=== PATIENT | male | born 1955 | race Caucasian/White ===

== ENCOUNTER → 2017-09-20 | Outpatient (CLI) | payer OTHER ==
[~2017-09-20] MED LIST: ASPIR-LOW81 MG PO; CENTRUM COMPLE1 EACH PO; FENOFIBRATE145 MG PO; FISH OIL 1,0001 EAC3 PO; HYDROXYCHLOROQ200 MG PO; NORCO 7.5-3251 EACH PO; OMEPRAZOLE40 MG PO; TIMOLOL MALEATE10 M1 OP; TYLENOL WITH C1 EACH PO; VIT C PO; VIT D PO; XALATAN2.5 ML OP; ZEBETA10 MG PO; ZETIA10 MG PO; [UNRECOGNIZED DRUG - OTHER] OP
--- NOTE | 2017-09-20 10:53 | Diagnostic Imaging Report ---
PROCEDURE:ABDOMINAL ULTRASOUND COMPARISON:None. INDICATIONS:Chronic Hepatitis C Technique:Groves scale color Doppler ultrasound. FINDINGS: Imaged segments of the inferior vena cava and abdominal aorta are of normal caliber. The mid aorta is obscured. Normal pancreatic head and proximal body. Detail is obscured by bowel gas. Right liver span is 14.3 cm. Nodular contour with increased echogenicity. Portal vein diameter 1.1 cm; normal flow direction. Cholecystectomy. Common bile duct diameter 4 mm. Right kidney: 10.4 x 5.9 x 5.1 cm. Left kidney: 11.9 x 6.1 x 5.1 cm. The left kidney contains an anechoic, noncalcified, avascular 1.5 cm parapelvic simple cyst. The kidneys are otherwise normal. Splenic length 8.5 cm. No ascites. CONCLUSION: 1. Nodular echogenic liver in keeping with cirrhosis. No conspicuous mass. 2. Cholecystectomy. Dictated by: Gareth Gordon M.D. on 09/20/2017 at 11:01 Electronically approved by: Gareth Gordon M.D. on 09/20/2017 at 11:01
== END ==
LOC: US 09:44
PROVIDERS: ATTEND Internal Medicine Gastroenterology
DX: B18.2 Chronic viral hepatitis C (principal)
CPT/HCPCS: 76700

== ENCOUNTER → 2018-08-23 | Outpatient (CLI) | payer MEDICARE, OTHER ==
--- NOTE | 2018-08-24 12:40 | Diagnostic Imaging Report ---
Exams: Thoracic and lumbar spine CTs without IV contrast History: T12 compression fracture, back pain. Fall from ladder on 08/18/2018. Comparison studies: Included spine from abdomen pelvis CT 04/04/2015. Technique:: Axial were obtained through the thoracic and lumbar regions. Coronal and sagittal images reconstructed from the axial data. Intravenous contrast: None Findings: Alignment: Normal thoracic kyphosis. Normal lumbar lordosis. No significant scoliosis. Soft tissues: No abnormalities.. Paraspinal muscles: Unremarkable Spinal cord: Can not be evaluated. Vertebrae: Superior T12 endplate wedge compression fracture is new from the 04/04/2015 CT and results in approximately 20% height loss. There is only 2 mm retropulsion of the posterior superior vertebral body without significant canal stenosis. No other fractures. No evidence of infection or neoplasm. Changes of anterior cervical discectomy and fusion (ACDF) in the partially imaged cervical spine (cannot further evaluate on this exam). Partially imaged lower cervical spine: Moderate foraminal stenosis at C6-C7 due to uncovertebral facet arthrosis. Mildly degenerated disc at C7-T1. Thoracic degenerative changes: There is a Schmorl's node along the superior T6 endplate. Incidental bridging anterior osteophytes on the left from T3 to T5 and on the right from T7 to T11. Mild multilevel disc degeneration. Patent canal and foramina. Lumbar degenerative changes: L1-L2: Patent canal and foramina. L2-L3: Mildly degenerated disc with mild loss of disc height. Small disc bulge asymmetric to the left, mildly thickened ligamentum flavum and mild facet arthrosis with mild canal stenosis and mild left frontal stenosis. Patent right foramen. L3-L4: Mildly degenerated disc. Asymmetric left disc bulge, thickened ligamentum flavum and mild facet arthrosis with mild canal stenosis and mild left foraminal stenosis. Patent right foramen. L4-5: Mildly degenerated disc. Disc bulge with bilateral foraminal disc ossify complexes, thickened ligamentum flavum and facet arthrosis with moderate canal stenosis moderate foraminal stenosis (left greater than right) . L5-S1: Mildly degenerated disc with mild loss of disc height and vacuum phenomena. A disc osteophyte complex and facet arthrosis result in moderate right and mild left foraminal stenosis. No significant canal stenosis. Incidental findings: Prior right cholecystectomy. Scattered calcified atherosclerosis (thoracic and abdominal aorta, bilateral renal artery origins, iliac arteries and coronary arteries). IMPRESSION: Thoracic and lumbar spines: 1. Superior T12 endplate compression fracture (approximate 20% height loss) with only minimal retropulsion without significant canal stenosis. 2. No other fractures or subluxations. 3. Degenerative changes as described most notable for moderate canal stenosis at L4-L5 and moderate foraminal stenosis bilaterally at L4-L5 and on the right L5-S1. 4. Changes of ACDF in the partially imaged lower cervical spine Signed by: Dr. Cr De M.D. on 08/24/2018 12:36 PM
== END ==
LOC: CT 15:50
PROVIDERS: ATTEND Family Medicine
DX: S22.080A Wedge compression fracture of T11-T12 vertebra, initial encounter for closed fracture (principal); M54.6 Pain in thoracic spine; M54.5 Low back pain
CPT/HCPCS: 72128; 72131

== ENCOUNTER 2019-05-25 17:12 | Inpatient (IN) | payer MEDICARE, OTHER ==
[~2019-05-25] VITALS: Ht 175.3 cm; Wt 78.0 kg
--- OUTSIDE RECORDS SUMMARY | 2019-05-25 17:16 | XMS REPORT | Summary of Care ---
Author Author [facility] Organization [facility] Address Unknown Phone Unavailable Encounter GILES Parekh(MAUDE) [id number] Date(s): 06/08/17 - 06/08/17 [facility] [address] [place] [address]- Discharge Disposition: Home or Self Care Attending Physician: Sarika Astorga MD Referring Physician: Sarika Astorga MD Vital Signs No data available for this section Problem List No data available for this section Allergies, Adverse Reactions, Alerts Substance Reaction Severity Status nka Active Medications Omnipaque 300 75 mL, Route: IV, Drug Form: SOLN, ONCE, Start date: 06/08/17 8:42:00 CDT, Stop date: 06/08/17 8:42:00 CDT Notes: (Same as:Omnipaque 300).WASTE: F/P - Black; E - Municipal Trash Bin Start Date: 06/08/17 Stop Date: 06/08/17 Status: Completed Results CHEM PANEL Most recent to 1 oldest [Reference Range]: eGFR 94 mL/min/1.73m2 1 *NA* (06/08/17 8:18 AM) POC Creatinine 0.8 mg/dL [0.5-1.4 mg/dL] (06/08/17 8:18 AM) 1Result Comment: The eGFR is calculated using the CKD-EPI formula. In most young, healthy individuals the eGFR will be >90 mL/min/1.73m2. The eGFR declines with age. An eGFR of 60-89 may be normal in some populations, particularly the elderly, for whom the CKD-EPI formula has not been extensively validated. Use of the eGFR is not recommended in the following populations: Individuals with unstable creatinine concentrations, including patients and those with serious co-morbid conditions. Patients with extremes in muscle mass or diet. The data above are obtained from the National Kid[employer] Disease Education Program ( NKDEP) which additionally recommends that when the eGFR is used in patients with extremes of body mass index for purposes of drug dosing, the eGFR should be mul tiplied by the estimated BMI. Immunizations No data available for this section Procedures No data available for this section Social History No data available for this section Assessment and Plan No data available for this section
--- OUTSIDE RECORDS SUMMARY | 2019-05-25 17:16 | XMS REPORT | Continuity of Care Document ---
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 01/22/2018 [facility] [place] DX: R07.89=/ M06.9=GARRY GUO, Active 06/06/2017 [facility] DX: E23.6= Active 06/06/2017 [facility] G44.53 - PRIMARY THUNDERCLAP HEADACHE [facility] Coronary stent occluded (finding) Active Problem 03/28/2019 [facility] [place] Hypertensive disorder, systemic arterial (disorder) Active Problem 03/28/2019 [facility] [place] Peripheral vascular disease (disorder) Active Problem 03/28/2019 lower extremities [facility] [place] OTHER DISORDERS OF PITUITARY GLAND Active [facility] Medications Medication Details Route Status Patient Instructions Ordering Provider Order Date Source Acetaminophen 325 MG / Hydrocodone Bitartrate 7.5 MG Oral Tablet [[place] 7.5/325] 1 tab, PO, Q6H, PRN Pain, # 60 tab, 0 Refill(s) Active 12/28/2018 [facility] CoQ10 300 mg, PO, Daily, 0 Refill(s) Active 12/28/2018 [facility] Calcium Carbonate 1500 MG / Cholecalciferol 800 UNT Chewable Tablet [Caltrate Plus D] 1 tab, CHEW, Daily, 0 Refill(s) Active 12/28/2018 [facility] Fenofibrate 48 MG Oral Tablet =1 cap, PO, Daily, # 30 cap, 0 Refill(s) Active 12/28/2018 [facility] Furosemide 20 MG Oral Tablet 20 mg=1 tab, PO, BID, 0 Refill(s) Active 12/28/2018 [facility] Vitamin C 500 mg oral tablet 500 mg=1 tab, PO, Daily, # 30 tab, 0 Refill(s) Active 12/28/2018 [facility] Vitamin D3 2000 intl units oral capsule 2,000 IntlUnit=1 cap, PO, Daily, # 100 cap, 3 Refill(s) Active 12/28/2018 [facility] dorzolamide / Timolol 1gtt, RIGHT EYE, BID, 0 Refill(s) Active 12/28/2018 [facility] Centrum Cardio oral tablet 1 tab, PO, Daily, # 30 tab, 0 Refill(s) Active 12/28/2018 [facility] latanoprost 0.005% preservative-free ophthalmic solution 1 gtt, BOTH EYES, Daily, 0 Refill(s) Active 12/28/2018 [facility] prasugrel 10 MG Oral Tablet [Effient] 10 mg=1 tab, PO, Daily, # 30 tab, 0 Refill(s) Active 12/28/2018 [facility] pravastatin 20 mg oral tablet 20 mg=1 tab, PO, Bedtime, # 30 tab, 0 Refill(s) Active 12/28/2018 [facility] diltiazem 120 mg/24 hours oral capsule, extended release 120 mg=1 cap, PO, # 30 cap, 0 Refill(s) Active 12/28/2018 [facility] Aspirin 81 MG Enteric Coated Tablet 81 mg=1 tab, PO, Daily, # 90 tab, 3 Refill(s) Active 12/28/2018 [facility] ezetimibe 10 MG Oral Tablet [Zetia] 10 mg=1 tab, PO, Daily, # 30 tab, 0 Refill(s) Active 12/28/2018 [facility] Hydroxychloroquine Sulfate 200 MG Oral Tablet 400 mg=2 tab, PO, Daily, # 60 tab, 0 Refill(s) Active 12/28/2018 [facility] gadobenate dimeglumine 7,935 mg, 15 mL, Route: IV, Drug form: INJ, ONCE, Start date: 06/20/17 11:06:00 CDT, Stop date: 06/20/17 11:06:00 CDTNotes: Same as Multihance Inactive 06/20/2017 [facility] Omnipaque 350 100 mL, Route: IV, Drug Form: SOLN, ONCE, Start date: 06/20/17 11:05:00 CDT, Stop date: 06/20/17 11:05:00 CDTNotes: (same as:Omnipaque 350). WASTE: F/P - Black; E - Municipal Trash Bin Inactive 06/20/2017 [facility] Omnipaque 300 75 mL, Route: IV, Drug Form: SOLN, ONCE, Start date: 06/08/17 8:42:00 CDT, Stop date: 06/08/17 8:42:00 CDTNotes: (Same as:Omnipaque 300). WASTE: F/P - Black; E - Municipal Trash Bin Inactive 06/08/2017 [facility] Allergies, Adverse Reactions, Alerts Substance Category Reaction Severity Reaction type Status Date Reported Comments Source nka Assertion Drug allergy Active [facility] [place] Immunizations No Data Provided for This Section Results Order Name Results Value Reference Range Date Interpretation Comments Source CHEM PANEL eGFR 99 12/28/2018 Result Comment: The eGFR is calculated using the [...] from the National Kidney Disease Education Program (NKDEP) which additionally recommends that when the eGFR is used in patients with extremes of body mass index for purposes of drug dosing, the eGFR should be multiplied by the estimated BMI. [facility] CHEM PANEL POC Creatinine 0.7 0.5 - 1.4 12/28/2018 [facility] ELECTROLYTES Sodium Lvl 139 135 - 145 12/28/2018 [facility] ELECTROLYTES AGAP 12.2 10.0 - 20.0 12/28/2018 [facility] ELECTROLYTES Chloride Lvl 106 95 - 109 12/28/2018 [facility] ELECTROLYTES CO2 26 24 - 32 12/28/2018 [facility] ELECTROLYTES Potassium Lvl 5.2 3.5 - 5.1 12/28/2018 [facility] CHEM PANEL Creatinine Lvl 0.92 0.50 - 1.40 12/28/2018 [facility] CHEM PANEL eGFR 87 12/28/2018 Result Comment: The eGFR is calculated using the [...] from the National Kidney Disease Education Program (NKDEP) which additionally recommends that when the eGFR is used in patients with extremes of body mass index for purposes of drug dosing, the eGFR should be multiplied by the estimated BMI. [facility] CHEM PANEL eGFR 100 06/20/2017 Result Comment: The eGFR is calculated using the [...] from the National Kidney Disease Education Program (NKDEP) which additionally recommends that when the eGFR is used in patients with extremes of body mass index for purposes of drug dosing, the eGFR should be multiplied by the estimated BMI. [facility] CHEM PANEL POC Creatinine 0.7 0.5 - 1.4 06/20/2017 [facility] CHEM PANEL eGFR 94 06/08/2017 Result Comment: The eGFR is calculated using the [...] from the National Kidney Disease Education Program (NKDEP) which additionally recommends that when the eGFR is used in patients with extremes of body mass index for purposes of drug dosing, the eGFR should be multiplied by the estimated BMI. [facility] CHEM PANEL POC Creatinine 0.8 0.5 - 1.4 06/08/2017 [facility] Pathology Reports No Data Provided for This Section Diagnostic Reports Report Value Date Source Chest wo contrast CT EXAM: CT CHEST WITHOUT CONTRAST DATE: 03/26/2019 9:52 CDT INDICATION: - R06.02 Shortness of breath COMPARISON: CT chest 02/07/2018 and 09/13/2017. TECHNIQUE: Volumetric CT of the chest is acquired without contrast. Axial, coronal and sagittal images are provided. IV contrast: None. DLP: 316.71 mGy-cm FINDINGS: Lines, tubes and hardware: None. Lower neck: The visible portions or the lower neck and thyroid are unremarkable. Axilla: No axillary adenopathy. Airway: Patent. Lungs and pleura: No pleural effusions or pneumothorax. Mild centrilobular emphysema with upper lobe predilection. Small bilateral pulmonary nodules measuring up to 6 mm are stable since 09/13/2017, as seen in the right lung on images 89 and 119, in the left lung on images 42 and 96 of series 2. There are no new or enlarging pulmonary nodules. Calcified granuloma in the right lower lobe. Stable mild symmetric subpleural reticulation with upper lobe predominance. Mediastinum, dodie and intrathoracic lymph nodes: No enlarged mediastinal or hilar lymph nodes noted. Evaluation of hilar spaces is limited due to lack of intravenous contrast. Heart, pericardium and great vessels: The heart is normal in size. Moderate atherosclerotic changes in the aorta and coronary arteries. No pericardial effusion. Upper abdomen: Large sliding hiatal hernia. Normal adrenal glands. Postsurgical changes following cholecystectomy. Mild bilateral perinephric fat stranding. Spleen is normal in size. Redemonstration of fatty atrophy of the pancreas. Bones: Postsurgical changes in the cervical spine. Bones are diffusely demineralized. Degenerative changes in the thoracic spine. New compression fracture of about 40% of T12 vertebral body. Soft tissues: Normal. IMPRESSION: 1. Small bilateral pulmonary nodules are stable since 09/13/2017. No new or enlarging pulmonary nodules. 2. Mild centrilobular emphysema with upper lobe predominance. 3. Stable mild symmetric subpleural reticulation may represent early fibrosis. Further evaluation with high-resolution CT chest may be performed. 4. Moderate atherosclerotic changes in the aorta and coronary arteries. 5. Large sliding hiatal hernia. 6. Nonspecific mild bilateral perinephric fat stranding. 7. Patchy atrophy of the pancreas. 8. New compression fracture of about 40% of T12 vertebral body. 03/26/2019 [facility] Brain Pituitary w/wo contrast MRI Clinical Indication: UNDER ANESTHESIA - E23.6 Other disorders of pituitary gland Comparison: Comparison is made to MR study 02/15/2018 TECHNIQUE: Multiplanar MRI of the brain is performed with pituitary protocol including thin section sellar pre and post Gadolinium contrast enhanced images on a 3 Daphnie magnet. Contrast: 13 cc of gadolinium was administered. FINDINGS: PITUITARY: Similar to the previous exam, at the superior aspect of the adenohypophysis, there is a bilobed T1 weighted hyperintense mass intensity of 5 mm x 3 mm x 5 mm. 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 The remainder of the adenohypophysis is normally enhanced. There is no microadenoma. There is no suprasellar abnormality otherwise identified. The optic chiasm and 1st portion the optic nerves are normal. There is normal enhancement the cavernous sinus and midline infundibulum. There appears to be a normal bright signal of the neurohypophysis. BRAIN PARENCHYMA: The visualized brain parenchyma has normal signal, with normal mujica-white junction, sulci and gyri. There is no mass effect or midline shift. There is no extra-axial fluid collection, intraparenchymal hemorrhages. The ventricles and cisterns are normal. There are no diffusion-weighted abnormalities to suggest acute/subacute ischemia. The corpus callosum is normal. The expected intracranial flow-voids are present. The venous sinuses are grossly unremarkable. The optic chiasm and sella are unremarkable. The midbrain, marcy and medulla are unremarkable. The cerebellum is unremarkable. The craniocervical junction is normal. VISUALIZED EXTRACRANIAL ANATOMY: There is no air-fluid level in the visualized paranasal sinuses. The nasopharynx region appears unremarkable. The mastoid air cell regions appear unremarkable. The visualized parotid regions appear unremarkable. IMPRESSION: Similar to the previous exam, at the superior aspect of the adenohypophysis, there is a bilobed T1 weighted hyperintense mass intensity of 5 mm x 3 mm x 5 mm. 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 The remainder of the adenohypophysis is normally enhanced. SL: ESTER 12/28/2018 [facility] Neck CTA EXAM: CT ANGIOGRAM OF THE NECK DATE: 12/17/2018 10:03 CDT INDICATION: I65.23 Occlusion and stenosis of bilateral carotid arteries; carotid stenosis, dizziness COMPARISON: CTA brain/neck dated 06/08/2017 TECHNIQUE: Rapid acquisition spiral CT images of the neck were obtained between the aortic arch and the skull base during intravenous infusion of iodinated contrast for the purposes of CT angiography. 3-D CT angiographic images are created using maximum intensity projection technique at the acquisition workstation. The source images are also presented for interpretation. IV contrast: 100 mL Visipaque 320 FINDINGS: NECK CTA: Aortic arch: The great vessels originate from the aortic arch in the standard configuration. There are atherosclerotic calcifications in the aortic arch and origins of the great vessels. As a consequence, there is suggestion of mild to moderate stenosis at the origin and immediate proximal segment of the brachiocephalic and left subclavian arteries. There is no flow-limiting stenosis at the origin of the left common carotid artery. Carotid arteries: There is no evidence of flow-limiting dissection or other vascular injury. The cervical common carotid arteries and cervical internal carotid arteries have a normal course, caliber, and contour. There are areas of calcification at the carotid bifurcations. 47% stenosis at the origin of the cervical right internal carotid artery, by NASCET criteria. There is 51% stenosis at the origin of the cervical left internal carotid artery, by NASCET criteria. Vertebral arteries: There is moderate to severe stenosis at the origin of the right vertebral artery, resulting from calcified atherosclerotic plaques. The left vertebral artery origin is patent, without flow-limiting stenosis. There are nonflow- limiting calcifications at the proximal and distal V1 segment of the left vertebral artery. Atherosclerotic calcifications in the bilateral carotid siphons are nonflow-limiting. The thyroid gland is unremarkable. Previously noted tiny indeterminate nodule in the superior segment of the left lower lobe appears to be unchanged or less conspicuous than previous (series 2 image 21 on the current study versus series 8 image 588 on the prior exam). Mild centrilobular emphysematous changes in the visible lung apices are again shown. Again shown are postsurgical changes, status post ACDF spanning C5-C7. The appearance an alignment of the cervical spine are unchanged. IMPRESSION: 1. 47% stenosis at the origin of the cervical right internal carotid artery and 51% stenosis at the origin of the cervical left internal carotid artery, by NASCET criteria. Please note that the current measurements are different from previously reported, presumably as a result of differences in measurement planes/technique. The aforementioned stenoses are attributed to calcified atherosclerotic plaques. 2. Moderate to severe stenosis at the origin of the right vertebral artery, resulting from calcified atherosclerotic plaques 3. Nonflow-limiting atherosclerotic calcifications at the V1 segment of the left vertebral artery. The left vertebral artery origin is patent. 4. Nonflow-limiting atherosclerotic calcifications at the bilateral carotid siphons 5. Atherosclerotic calcifications at the aortic arch and origins of the great vessels, producing mild to moderate stenosis at the origins and immediate proximal segments of the brachiocephalic and left common carotid arteries 6. 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 Comparison: Pituitary MR 06/20/2017. Brain MR 04/26/2017. Brain CT/CTA 06/08/2017. TECHNIQUE: Axial T1, coronal T2 FLAIR, axial T2 FLAIR, axial T2 MR sequences of the brain. Sagittal T1, coronal T2, axial T1, postcontrast dynamic coronal T1, delayed postcontrast coronal and sagittal T1 sequences through the pituitary gland. CONTRAST: 14 mL MultiHance. FINDINGS: Pituitary/sella: the bony sella is unremarkable. The adenohypophysis is normal in size, measuring approximately 7 mm in craniocaudal dimension. Again noted is an intrinsically T1 hyperintense 4 mm x 4 mm lesion at the confluence of the infundibulum and adenohypophysis, without extension into the suprasellar space. This lesion does not demonstrate enhancement. An orthotopic T1 hyperintense neurohypophysis is not well identified. The infundibulum is midline. The cavernous sinuses, optic chiasm, prechiasmatic optic nerves and hypothalamic region appear normal. VENTRICLES AND SULCI: Mildly widened, likely representing age-related volume loss. EXTRA-AXIAL SPACES:No extra-axial fluid collection or mass effect. BRAIN PARENCHYMA: No abnormal restricted diffusion or enhancement. The T2 FLAIR hyperintense foci in the supratentorial matter are nonspecific but favor microvascular ischemic changes. There is no mass effect or midline shift. There there is no magnetic susceptibility to suggest intraparenchymal hemorrhage. PARANASAL SINUSES: Mild mucosal thickening of the frontal sinuses, ethmoid air cells, maxillary sinuses and sphenoid sinuses, with small fluid level in the right maxillary sinus. IMPRESSION: No change in the appearance of the brain and pituitary gland compared to the MR performed on 06/20/2017. A 4 mm x 4 mm T1 hyperintense lesion at the confluence of the neurohypophysis and adenohypophysis may represent a lipoma, or ectopic neurohypophysis. A small cyst is also a possibility, but less favored. If follow-up pituitary MR is performed, addition of unenhanced sagittal T1 fat sat and sagittal T2 sequences through the pituitary gland would be beneficial in characterizing the presence of fat within this lesion. Sinusitis/inflammatory changes of the paranasal sinuses. SL: [id number] 02/15/2018 [facility] Chest wo contrast CT EXAM: CT CHEST WITHOUT CONTRAST DATE: 02/07/2018 12:30 PM CDT INDICATION: - J98.4 Other disorders of lung TECHNIQUE: Volumetric CT acquisition of the chest without contrast. Axial, sagittal and coronal reconstructions. Axial MIP images included. IV contrast: None. DLP: 352 mGy-cm COMPARISON: Noncontrast CT chest September 13, 2017 DISCUSSION: Lines and Tubes: None. Lower Neck: The visible portions or the lower neck and thyroid are unremarkable. Heart, Mediastinum, and Great Vessels: Normal caliber of the ascending aorta and pulmonary trunk. No cardiomegaly or pericardial effusion. Scattered calcified plaques are present in the aorta and also in the coronary arteries. Lymph Nodes: No mediastinal, axillary or internal mammary lymphadenopathy. Hilar lymph nodes are suboptimally evaluated due to the absence of IV contrast. Lungs and airways and pleura: No pleural effusion or pneumothorax. Airways are unremarkable. There is mild centrilobular emphysema in both lungs with slight upper lobe predilection. 6 mm nodule along the minor fissure (series 2 image 129) is unchanged and likely represents a lymph node. There is also a pair of 2 mm nodule along the left major fissure (series 2 image 111, 121) that may represent a lymph node as well. This nodule is also unchanged from the prior exam. There is a 2 mm right upper lobe nodule on axial image 85. There is a 2 mm right upper lobe nodule on axial image 94. There is a 2 mm left upper lobe nodule on axial image 53. These nodules are unchanged from the previous exam. Esophagus and Upper abdomen: Fatty atrophy of the pancreas is unchanged from the prior exam. Cholecystectomy clips are unchanged. Bones and Soft Tissues: Mild degenerative changes are present in the spine. Incompletely visualized ACDF hardware is present. IMPRESSION: No significant change from previous exam. Pulmonary nodules described in the body of this report are grossly stable in size. No new pulmonary nodules are seen. One year follow-up CT scan is recommended to ensure stability. Centrilobular emphysema throughout both lungs. Coronary and aortic atherosclerosis. 02/07/2018 [facility] wo contrast CT EXAM: CT CHEST WITHOUT CONTRAST DATE: 09/13/2017 12:30 PM [facility] INDICATION: - R06.02 Shortness of breath TECHNIQUE: Volumetric CT acquisition of the chest without contrast. Axial, sagittal and coronal reconstructions. Axial MIP images included. IV contrast: None. DLP: 354 mGy-cm COMPARISON: CTA chest 06/20/2017 DISCUSSION: Lines and Tubes: None. Lower Neck: The visible portions or the lower neck and thyroid are unremarkable. Heart, Mediastinum, and Great Vessels: The heart is normal in size. No pericardial effusion is seen. Calcifications of the LAD and right coronary arteries are noted. Scattered aortic root and thoracic aortic calcifications are also seen. The aorta and main pulmonary trunk are within normal limits in caliber. Lymph Nodes: No hilar, mediastinal, axillary or internal mammary lymphadenopathy. Lungs: A small calcified granuloma seen in the right lower lobe. A nodular density measuring 6 mm is seen along the right minor fissure, unchanged and likely representing a perifissural lymph node. Small 2 mm nodular densities along the left oblique fissure are also unchanged and likely represent perifissural lymph nodes. No suspicious pulmonary nodule is identified. The central airways are patent. Pleura: No pleural effusion or pneumothorax. Esophagus and Upper abdomen: Changes of cholecystectomy are seen. Bilateral adrenal nodules measuring 9 mm on the right and 8 mm on the left are unchanged and suggestive of adenomas. A small paraesophageal hernia is present. Bones and Soft Tissues: Views of ACDF are partially visualized along C7. No aggressive osseous lesion is seen. Mild degenerative changes affect the spine. IMPRESSION: 1. Nodular density along the right minor fissure measuring 6 mm, unchanged and likely representing a perifissural lymph node. No suspicious pulmonary nodules. 2. Coronary artery disease affecting the LAD and right coronary arteries. 3. Bilateral subcentimeter adrenal nodules, possibly representing adenomas. Further evaluation can be achieved with a CT or MRI abdomen using adrenal protocol. 09/13/2017 [facility] Chest CTA Patient Name: BETTE TOLEDO : 1955; Age: 62 years y/o Male MR: [id number] Study: Chest CTA 06/20/2017 10:59 AM CDT Clinical Indication: 100cc omni 350ml 100cc saline CT DLP 354 mGy-cm CAM - chest pain, pt states he's been having a lot of chest pain and headache for 10 months. COMPARISON: 06/08/2017. TECHNIQUE: Sequential trans-axial images of the thoracic and suprarenal aorta were obtained with a multi-detector helical CT after iodinated contrast administration per dissection CTA protocol. Coronal and sagittal reconstructions were obtained. IV contrast material was used for the exam. 3-D postprocessing reconstructions were obtained. FINDINGS: CTA CHEST: VASCULAR STRUCTURES: The ascending thoracic aorta appears normal. The aortic arch and descending thoracic aorta appear normal. There is no thoracic aortic dissection. The great vessels are normal. The main, right and left pulmonary arteries are normal. There are no central segmental pulmonary emboli noted. The peripheral pulmonary arteries are not well assessed on this exam. The superior vena cava is normal. LUNG PARENCHYMA AND PLEURA: 6 mm right middle lobe pulmonary nodule. Biapical parenchymal scarring. There are no pleural effusions. There is no pneumothorax. AIRWAY: The central airway is normal. MEDIASTINUM: There is no mediastinal lymphadenopathy. Small right pericardial lymph node measures 13 mm x 0.7 mm. HEART: The heart caliber is normal. There is no pericardial effusion. CTA ABDOMEN: ARTERIAL EVALUATION: The abdominal aorta is normal. The celiac artery, superior mesenteric artery and inferior mesenteric artery origins are patent. Bilateral renal arteries are patent. ABDOMINAL SOLID ORGANS: The gallbladder is surgically absent. The superior liver, superior kidneys, spleen, superior pancreas are unremarkable. There is mild bilateral adrenal nodularity. Small paraesophageal hernia. PERITONEUM AND RETROPERITONEUM: There is no retroperitoneal or abdominal lymphadenopathy. STOMACH: The noncontrast opacified stomach is normal. OSSEOUS STRUCTURES: Lower cervical fusion. IMPRESSION: 1. No evidence for aortic dissection. 2. 6 mm right pulmonary nodule for which a three-month follow-up chest CT without contrast is recommended. 3. Postcholecystectomy. 4. Bilateral adrenal nodules likely adenomas. This can be reassessed on the follow- up exam to document stability. Otherwise magnetic resonance imaging of the adrenal glands without contrast is recommended. 5. Small paraesophageal hernia. SL: [id number]. 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 COMPARISON: MRI brain of 04/26/2017. DISCUSSION: A 6.0 mm transverse x 4.0 mm craniocaudad x 5.0 mm AP superior pituitary hyperdense T1 and T2 signal intensity lesion is again noted may represent an atypical pituitary microadenoma or pituitary cyst. There are no definite suprasellar space occupying lesion. The pituitary stalk is at midline. The optic chiasm is well visualized and unremarkable. The cavernous sinuses are normal in size and are symmetric. No definite gross acute territorial infarction or intracranial hemorrhage detected. Extensive chronic inflammatory change of the paranasal sinus and small right maxillary air-fluid level. IMPRESSION: 1. A 6.0 mm transverse x 4.0 mm craniocaudad x 5.0 mm AP superior pituitary hyperdense T1 and T2 signal intensity lesion is present may represent an atypical pituitary microadenoma or pituitary cyst. Please correlate with pituitary hormone. Close clinical and short interval follow-up MRI pituitary in 6 months recommended to reevaluate. 2. No definite gross acute territorial infarction or intracranial hemorrhage detected. 3. Extensive chronic inflammatory change of the paranasal sinus and small right maxillary air-fluid level. SL: [id number] 06/20/2017 [facility] Brain/Neck CTA Study: Brain/Neck CTA 06/08/2017 8:18 AM CDT Patient Name: BETTE TOLEDO MR: [id number] : 1955; Age: 62 years y/o Male Ordering Physician: Sarika Astorga MD Clinical Indication: [address] DLP: 1177 mGy-cm - G44.53 Primary thunderclap headache Comparison: None TECHNIQUE: Sequential trans-axial images of the head and neck were obtained with a multi-detector helical CT after iodinated contrast administration. Additionally, two-dimensional and three-dimensional reformatted images were prepared. CTA NECK: VASCULAR EVALUATION: Aortic arch and great vessel origins: Mild atherosclerosis and narrowing in the arch and great vessel origins without significant narrowing. No aneurysm or dissection. Brachiocephalic trunk: No significant atherosclerosis, narrowing, aneurysm, or dissection. Subclavian arteries: Mild atherosclerosis and narrowing at a origin and proximal extent of the left subclavian artery. Normal right subclavian artery. Right carotid artery: No significant atherosclerosis or narrowing in the right common carotid artery. Mild to moderate calcified plaque at the right carotid bifurcation and internal carotid artery origin. The right internal carotid artery origin is moderately narrowed best demonstrated on series 10 B measuring 3.1 mm while measuring 6.1 mm distally corresponding to approximately 75% stenosis. However, narrowing appears less pronounced on the axial images likely related to oblique vessel course. Small to moderate focal calcified plaque is seen in the right internal carotid artery centered approximately 9 mm distal to the origin causing narrowing measuring 4.2 x 5.7 mm while measuring 4.9 x 5.1 mm immediately distally corresponding to less than 10% narrowing. The cervical portions of the right internal carotid artery are otherwise normal. Left carotid artery: The left common carotid artery is normal in caliber and appearance. Mild calcified plaque is seen at the left carotid bifurcation and internal carotid artery origin. The calcified plaque appears to be located slightly inferiorly to the narrowed left internal carotid artery origin measuring 3.6 x 4.2 mm while measuring 6.1 x 6.1 mm immediately distally corresponding to approximately 60% narrowing. Narrowing may be overestimated by oblique vessel course. Vertebral arteries: The right vertebral artery origin is partially obscured by artifact, but mild to moderate atherosclerosis is present causing moderate to severe narrowing. The remainder of the right vertebral artery is normal. Mild atherosclerosis is seen proximally in the otherwise normal-appearing left vertebral artery. Any reported ICA stenosis directly references the distal internal carotid diameter as the denominator for stenosis measurement. NON-VASCULAR STRUCTURES: Lymphadenopathy: Scattered subcentimeter bilateral cervical lymph nodes without lymphadenopathy. Airway: Clear. Visualized lung apices: Mild centrilobular emphysema is seen in both lung apices. Indeterminate 3 mm noncalcified subpleural nodule posteriorly in the superior segment of the left lower lobe. Osseous structures: Mild to moderate cervical spondylosis and facet arthrosis associated with C5-C7 anterior cervical discectomy and fusion. CTA HEAD: ANTERIOR CIRCULATION: Internal carotid arteries: Mild vascular calcification causing mild narrowing bilaterally. Middle cerebral arteries: No focal stenosis or aneurysm in the M1 and M2 segments. The peripheral MCA branches appear normal. Anterior cerebral arteries: No focal stenosis or aneurysm. Normal anterior communicating artery. POSTERIOR CIRCULATION: Vertebrobasilar system: No focal stenosis or aneurysm. Posterior cerebral arteries: No focal stenosis or aneurysm. Superior cerebellar arteries: Normal in appearance. AICA: Normal in appearance. PICA: Normal in appearance. BRAIN PARENCHYMA: Mild diffuse age-appropriate atrophy. No evidence of acute intracranial hemorrhage, mass lesion, mass effect, midline shift, or extra-axial fluid collection. VENTRICLES: The lateral ventricles, third and fourth ventricles, and basilar cisterns are normal. PARANASAL SINUSES AND MASTOIDS: Moderate mucoperiosteal thickening in the ethmoid sinus. Small mucous retention cyst in the right measures sinus. The visualized portions of the remaining paranasal sinuses and mastoids are clear. ORBITS AND SOFT TISSUES:The visualized portions of the orbits are normal. SKULL: No acute fracture or suspicious osseous lesion. VISUALIZED LUNG APICES: The visualized portions are clear. IMPRESSION: 1. Normal [place] without significant intracranial atherosclerosis or aneurysm. 2. Mild atherosclerosis is seen at both carotid bifurcations and internal carotid artery origins causing 75% stenosis of the right internal carotid artery origin and 60% stenosis of the left internal carotid artery origin. Measurements are mildly limited by oblique vessel course and may be confirmed with carotid ultrasound. 3. Mild diffuse cerebral atrophy. 4. Chronic sinusitis. 5. Mild centrilobular emphysema in the lung apices along with a 3 mm indeterminate noncalcified left pulmonary nodule. Further evaluation is recommended according to the Fleischner criteria at the end of the report. [employer] RECOMMENDATIONS FOR INCIDENTAL PULMONARY NODULES LESS (<8MM) Low-Risk Patient <=4mm: No follow up. 4-6mm: Follow-up CT at 12 months; if unchanged, no further follow up. 6-8mm: Initial follow-up CT at 6-12 months then at 18-24 months if no change. >8mm: Follow-up CT at around 3,9, and 24 months, dynamic contrast-enhanced CT, PET, and/or biopsy. High-Risk Patient <=4mm: Follow-up CT at 12 months; if unchanged, no further follow up. 4-6mm: Initial follow-up CT at 6-12 months then at 18-24 months if no change. 6-8mm: Initial follow-up CT at 3-6 months then at 9-12 months and 24 months if no change. >8mm: Same as low-risk patient Notes: 1. Newly detected indeterminate nodule in persons 35 years of age or older. 2. A low-risk patient: minimal or absent history of smoking end of other known risk factors. 3. High-Risk patient: history of smoking or other known risk factors. 4. Nonsolid groundglass or partly solid nodules may require longer follow-up to exclude indolent adenocarcinoma. 5. The risk of malignancy in nodules <=4 mm in a low-risk patient is less than 1% and is substantially less than that in a baseline CT scan of an asymptomatic smoker. SL: [id number]-ZOEY 06/08/2017 [facility] Chest 2 views DX Two-view chest Patient Name: BETTE TOLEDO : 1955; Age: 62 years Male MR: [id number] Study: Chest 2 views DX Order Time: 06/08/2017 8:33 AM CDT Clinical Indication: - R06.02 Shortness of breath. COMPARISON: None FINDINGS: Views: 2 LUNGS: There is increased lung volume. There are no suspicious interstitial/airspace opacities. There are no pleural effusions. There is no pneumothorax. The pulmonary vasculature is normal. MEDIASTINUM: The cardiac silhouette is normal. The trachea is midline. BONES: Lower cervical fusion. IMPRESSION: No radiographic evidence of acute pulmonary disease. SL: [id number] 06/08/2017 [facility] wo contrast MRV MR venogram of the cranium without contrast 04/26/2017 9:51 AM CDT Clinical: Headache. Comparison: None available. Findings: The major dural venous sinuses are patent. Internal cerebral veins and vein of Edu are also patent. IMPRESSION: Patent dural venous sinuses. 04/26/2017 [facility] [place] Brain w/wo contrast MRI Brain w/wo contrast MRI 04/26/2017 9:49 AM CDT Clinical Indication: - G44.53 Primary thunderclap headache; Comparison: None TECHNIQUE: Multiplanar MRI of the brain is performed without and with contrast. 15 mL of intravenous gadolinium was given. FINDINGS: BRAIN PARENCHYMA: No restricted diffusion is identified. Mild white matter FLAIR and T2-weighted signal abnormalities are seen, likely due to microvascular ischemia. Mild to moderate pontine microvascular ischemia is present. Mild generalized cerebral atrophy is seen. There is no extra-axial fluid collection or intraparenchymal hemorrhage. No abnormal enhancement is seen. CEREBELLOPONTINE REGIONS, SELLA, AND SKULL: The cerebellopontine angles appear unremarkable.. No skull abnormality is seen. No suprasellar mass is present. There is a 4.4 mm T1 weighted hyperintense signal focus along the superior margin of the pituitary gland. VENTRICLES/SULCI: The ventricles and sulci are normal in size and configuration for age. VISUALIZED VESSELS: Major intracranial flow voids are preserved. ORBITS, VISUALIZED PARANASAL SINUSES/MASTOIDS/CERVICAL SPINE: Significant bilateral ethmoid sinusitis and mild bilateral maxillary sinusitis are present. The mastoid air cells are clear. No orbital pathology is seen. IMPRESSION: 1. No intracranial hemorrhage, or acute infarct. 2. Mild chronic microvascular ischemia. Mild cerebral atrophy. 3. Small pituitary gland superior margin lesion may represent atypical adenoma or proteinaceous cyst. No suprasellar mass. If indicated, dedicated pituitary MRI may be obtained for further assessment. 4. Significant ethmoid sinusitis. [facility] [place] [facility] No Data Provided for This Section Discharge Summaries No Data Provided for This Section History and Physicals No Data Provided for This Section Vital Signs Vital Sign Value Date Comments Source Respitory Rate 19 12/28/2018 [facility] Systolic (mm Hg) 121 12/28/2018 [facility] Diastolic (mm Hg) 66 12/28/2018 [facility] Respitory Rate 17 12/28/2018 [facility] Systolic (mm Hg) 126 12/28/2018 [facility] Diastolic (mm Hg) 63 12/28/2018 [facility] Heart Rate 62 12/28/2018 [facility] Systolic (mm Hg) 144 12/28/2018 [facility] Diastolic (mm Hg) 65 12/28/2018 [facility] Respitory Rate 16 12/28/2018 [facility] Temperature Oral (F) 97.6 F 12/28/2018 [facility] Heart Rate 61 12/28/2018 [facility] BMI Calculated 21.86 12/28/2018 [facility] Height 175.26 cm 12/28/2018 [facility] Weight 67.136 12/28/2018 [facility] Encounters Location Location Details Encounter Type Encounter Number Reason For Visit Attending Provider ADM Date DC Date Status Source [facility] [place] [facility] [id number] Non Physician 04/26/2017 04/27/2017 [facility] Outpatient [id number] Sarika Astorga 06/08/2017 06/09/2017 [facility] Outpatient [id number] Sarika Astorga 06/20/2017 06/21/2017 [facility] Out[facility] - [place] [facility] [id number] Darius Limon 09/13/2017 09/14/2017 [facility]patient Imaging - [place] [facility] [id number] Darius Limon 02/07/2018 02/08/2018 [facility] Outpatient [id number] Sarika Astorga 02/15/2018 02/16/2018 [facility] Outpatient [facility] - [place] [facility] [id number] Pastor Lopez 12/17/2018 12/18/2018 [facility] Outpatient [id number] Sarika Croftjocelin 12/28/2018 12/29/2018 [facility] Outpatient [facility] - [place] [facility] [id number] Darius Braxton 03/26/2019 03/27/2019 [facility] Procedures Procedure Code Date Perfomer Comments Source Cholecystectomy [id number] [facility] Colonoscopy [id number] [facility] Fusion of joint of cervical spine by anterior approach for deformity of cervical spine [id number] [facility] Insertion of coronary artery stent [id number] [facility] Assessment and Plan No Data Provided for This Section Plan of Care No Data Provided for This Section Social History Social History Date Source Social History TypeResponse Alcohol Current1 Smoking Status Former smoker; Exposure to Tobacco Smoke None; Cigarette Smoking Last 365 Days Yes; Reg Smoking Cessation Counseling No2 entered on: 12/28/18 [id number] 6 months ago 12/28/2018 [facility] Social History TypeResponse Alcohol Current1 Smoking Status Former smoker; Exposure to Tobacco Smoke None; Cigarette Smoking Last 365 Days Yes; Reg Smoking Cessation Counseling No2 entered on: 12/28/18 [id number] 6 months ago 12/28/2018 [facility] No data available for this section 04/27/2017 [facility] Family History No Data Provided for This Section Advance Directives No Data Provided for This Section Functional Status No Data Provided for This Section
--- OUTSIDE RECORDS SUMMARY | 2019-05-25 17:16 | XMS REPORT | Summary of Care ---
Author Author [facility] Outpatient Imaging [facility] Outpatient [facility] Address Unknown Phone Unavailable Encounter HQ Encntr_alias(FIN) [id number] Date(s): 12/17/18 - 12/17/18 [facility] [address] [facility], [address] [place] [phone] Discharge Disposition: Home or Self Care Attending Physician: Pastor Lopez MD Referring Physician: Pastor Lopez MD Vital Signs No data available for this section Problem List No data available for this section Allergies, Adverse Reactions, Alerts Substance Reaction Severity Status nka Active Medications No data available for this section Results No data available for this section Immunizations No data available for this section Procedures No data available for this section Social History No data available for this section Assessment and Plan No data available for this section
--- OUTSIDE RECORDS SUMMARY | 2019-05-25 17:16 | XMS REPORT | Clinical Summary ---
Author Author [facility] Organization [facility] Address Unknown Phone Unavailable Care Team Providers Care Archives Specialist Name Role Phone Perico Salcido MD PCP Allergies No Known Allergies Medications End Date Status Medication Sig Dispensed Refills Start Date Active glycerin, adult, Insert 1 12 0 suppository rectal suppository suppository 8 suppository into the rectum once as needed (prn constipation) for up to 1 dose. Active zolpidem (AMBIEN) 5 MG Take 1 tablet 0 tablet by mouth 8 nightly. Active phquabqb-bccxqpilc-PE INSTILL 4 3 (CORTISPORIN) DROPS IN LEFT 9 3.5-10,000-1 EAR BID FOR 3 mg/mL-unit/mL-% otic DAYS THEN BID solution WHEN NECESSARY Active latanoprost (XALATAN) INT 1 GTT IN 6 0.005 % ophthalmic OU 1 TIME IN 9 solution THE LISSA Active HYDROcodone-acetaminophen Take 1 tablet 0 (NORCO) 7.5-325 mg per by mouth 4 9 tablet (four) times a day. Active furosemide (LASIX) 20 mg Take 2 1 tablet tablets by 9 mouth daily. Active fluticasone (FLONASE) 50 SPRAY TWICE 3 mcg/actuation nasal spray IEN QD 9 Active ciclopirox 1 % shampoo WASH SCALP 2 UTD QD 9 Active alendronate (FOSAMAX) 70 2 MG tablet 8 Active doxycycline (VIBRA-TABS) TK 2 TS PO QD 0 100 MG tablet 9 Active diazePAM (VALIUM) 2 MG TK 1 T PO TID 2 tablet PRN 9 Active cholecalciferol, vitamin 2,000 0 D3, (VITAMIN D3) 2,000 IntlUnit=1 9 unit capsule capsule cap, PO, Daily, # 100 cap, 3 Refill(s) Active aspirin (ECOTRIN) 81 MG 81 mg=1 tab, 0 enteric coated tablet PO, Daily, # 9 90 tab, 3 Refill(s) Active pravastatin (PRAVACHOL) 20 mg=1 tab, 0 20 MG tablet PO, Bedtime, 9 # 30 tab, 0 Refill(s) Active ezetimibe (ZETIA) 10 mg Take 10 mg by 0 tablet mouth daily. 08/27/2018 Discontinued (Reorder) acetaminophen-codeine Take 1-2 22 tablet 0 (TYLENOL WITH CODEINE #3) tablets by 8 300-30 mg per tablet mouth every 6 (six) hours as needed for moderate pain for up to 5 days. 09/26/2018 ondansetron ODT (ZOFRAN Take 1 tablet 12 tablet 0 ODT) 4 MG disintegrating (4 mg total) 8 tablet by mouth every 8 (eight) hours as needed for nausea for up to 30 days. 08/31/2018 keTOROlac (TORadol) 10 mg Take 1 tablet 16 tablet 0 tablet (10 mg total) 8 by mouth every 6 (six) hours as needed for moderate pain for up to 4 days. 08/27/2018 Discontinued (Reorder) diazePAM (VALIUM) 5 MG Take 1 tablet 9 tablet 0 tablet (5 mg total) 8 by mouth every 8 (eight) hours as needed for anxiety for up to 3 days. 09/01/2018 docusate sodium (COLACE) Take 1 10 capsule 0 100 MG capsule capsule (100 8 mg total) by mouth every 12 (twelve) hours for 5 days. 09/01/2018 acetaminophen-codeine Take 1-2 22 tablet 0 (TYLENOL WITH CODEINE #3) tablets by 8 300-30 mg per tablet mouth every 6 (six) hours as needed for moderate pain for up to 5 days. With food 08/30/2018 diazePAM (VALIUM) 5 MG Take 1 tablet 9 tablet 0 tablet (5 mg total) 8 by mouth every 8 (eight) hours as needed for anxiety for up to 3 days. With food 02/05/2019 Discontinued (Discontinued by another clinician) sulfamethoxazole-trimetho TK 1 T PO 0 prim (BACTRIM DS) 800-160 BID 9 mg per tablet Active Problems Problem Noted Date Headache 11/27/2018 Carotid stenosis 11/27/2018 Pituitary tumor Migraine Hypertension Glaucoma H/O heart artery stent Encounters Care Team Description Date Type Specialty Phyllis Archer MD Arrived 05/22/2019 Hospital Radiology Encounter Pastor Lopez MD Violetta, Sarah, PA Pituitary tumor (Primary Dx); Chronic nonintractable headache, unspecified headache type; Bilateral carotid artery stenosis 02/05/2019 Office Visit Neurology Elyssa Jo MA Bilateral carotid artery stenosis (Primary Dx) 12/17/2018 Orders Only Neurology Pastor Lopez MD 12/17/2018 Telephone Neurology Elyssa Jo MA 12/07/2018 Telephone Neurology Felicita Hollins MA 12/05/2018 Telephone Neurology Pastor Lopez MD Pituitary tumor (Primary Dx); Chronic nonintractable headache, unspecified headache type; Bilateral carotid artery stenosis 11/27/2018 Office Visit Neurology Ravinder Alvarez MD Traumatic compression fracture of T12 thoracic vertebra, closed, initial encounter (HCC) (Primary Dx) 08/27/2018 Emergency Emergency Medicine after 05/24/2018 Family History Medical History Relation Name Comments Stomach cancer Father Heart attack Mother Stroke Mother Relation Name Status Comments Father Mother Social History Date Tobacco Use Types Packs/Day Years Used Never Smoker Smokeless Tobacco: Never Used Sex Assigned at Date Recorded Not on file Industry Job Start Date Occupation Not on file Not on file Not on file Travel End Travel History Travel Start No recent travel history available. 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 Temperature 18 08/27/2018 7:07 PM 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 Respiratory Rate 99% 08/27/2018 7:07 PM 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 Oxygen Saturation - - Inhaled Oxygen Concentration 68 kg (150 lb) 02/05/2019 10:31 AM CDT Weight 175.3 cm (5' 9") 02/05/2019 10:31 AM CDT Height 22.15 02/05/2019 10:31 AM CDT Body Mass Index Plan of Treatment Care Team Description Date Type Specialty Phyllis Archer MD [address] [facility] [address] [place] [address] 06/12/2019 Office Visit Neurosurgery Health Maintenance Due Date Last Done Comments COLONOSCOPY SCREENING 2003 SHINGLES VACCINES (#1) 2003 65+ PNEUMOCOCCAL VACCINE 2018 (1 of 2 - PCV13) INFLUENZA VACCINE 04/25/2019 Procedures Comments Procedure Name Priority Date/Time Associated Diagnosis CT NECK EXTERNAL STUDY Routine 12/20/2018 10:15 AM CDT PROLACTIN LEVEL Routine 11/30/2018 Pituitary tumor 10:01 AM 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 Chronic nonintractable headache, unspecified headache type SEDIMENTATION RATE Routine 11/30/2018 Pituitary tumor 10:01 AM 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 Chronic nonintractable headache, unspecified headache type COMPREHENSIVE METABOLIC Routine 11/30/2018 Pituitary tumor PANEL 10:01 AM 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 Chronic nonintractable headache, unspecified headache type CBC WITH PLATELET AND Routine 11/30/2018 Pituitary tumor DIFFERENTIAL 10:01 AM 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 Chronic nonintractable headache, unspecified headache type after 05/24/2018 Results * CT Neck External Study (12/20/2018 10:15 AM CDT) Specimen Narrative Performed At This exam was not acquired at a [facility] facility and has not been RADIANT interpreted by a [facility] Provider.The exam was imported into our imaging system for comparisons purposes. Performing Organization Address City/State/Zipcode Phone Number [facility] [address] [place] [address] * Prolactin level (11/30/2018 10:01 AM 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) Prolactin 7.4 2.0 - 18.0 ng/mL [employer] [place] Specimen Blood Narrative Performed At FASTING:YES [facility] FASTING: YES Resulting Agency Comment Performing Organization Information: Site ID: [id number] Name: [facility] Address: [address] [place] [address] Director: Krupa Feng Performing Organization Address City/State/Zipcode Phone Number [facility] [place] [address] [place] [phone] * Sedimentation rate (11/30/2018 10:01 AM 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) Sedimentation 2 < OR=20 mm/h [facility] rate [employer] [place] Specimen Blood Narrative Performed At FASTING:YES [facility] FASTING: YES Resulting Agency Comment Performing Organization Information: Site ID: [id number] Name: [facility] Address: [address] [place] [id number] Director: Krupa Feng Performing Organization Address City/State/Zipcode Phone Number JAJA [employer] [place]EV[place] [address] [address] * CBC with platelet and differential (11/30/2018 10:01 AM 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) WBC 7.0 3.8 - 10.8 [facility] Thousand/uL [facility]ST[facility] [place] RBC 4.31 4.20 - 5.80 [facility] Million/uL [facility] [place] HGB 14.0 13.2 - 17.1 g/dL [facility] [place] HCT 40.6 38.5 - 50.0 % [facility] [place] MCV 94.2 80.0 - 100.0 fL [facility] [place] MCH 32.5 27.0 - 33.0 pg [facility] [place] MCHC 34.5 32.0 - 36.0 g/dL [facility] [place] RDW 12.4 11.0 - 15.0 % [facility] [place] Platelet count 338 140 - 400 [facility] Thousand/uL [facility] [place] MPV 9.8 7.5 - 12.5 fL [facility] [place] Neutrophils, 4,137 1,500 - 7,800 [facility] absolute cells/uL [facility] [place] Lymphocytes, 1,925 850 - 3,900 cells/uL [facility] absolute [facility]AG[facility]STICS [place] Monocytes, 728 200 - 950 cells/uL [facility] absolute [facility]AG[facility]STICS [place] Eosinophils, 182 15 - 500 cells/uL [facility] absolute [facility]AG[facility]STICS [place] Basophils, 28 0 - 200 cells/uL [facility] absolute DIAGNOSTICS [place] Neutrophils 59.1 % [facility] [place] Lymphocytes 27.5 % [facility] [place] Monocytes 10.4 % [facility] [place] Eosinophils 2.6 % [facility] [place] Basophils + RC 0.4 % [facility] [place] Specimen Blood Narrative Performed At FASTING:YES [facility] FASTING: YES Resulting Agency Comment Performing Organization Information: Site ID: [id number] Name: [facility] Address: [address] [place] [id number] Director: Krupa Feng Performing Organization Address City/State/Zipcode Phone Number JAJA [facility] [place] [address] [place] [address] * Comprehensive metabolic panel (11/30/2018 10:01 AM 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) [facility] Glucose 96 65 - 99 mg/dL [facility] Comment: DIAGNOSTICS Fasting [place] reference interval BUN, whole 14 7 - 25 mg/dL [facility] blood DIAGNOSTICS [place] Creatinine 0.85 0.70 - 1.25 mg/dL [facility] Comment: DIAGNOSTICS For patients >49 years of age, [place] the reference limit for Creatinine is approximately 13% higher for people identified as -[place]. EGFR Non-Afr. 91 > OR=60 [facility] [place] mL/min/1.73m2 DIAGNOSTICS [place] EGFR 106 > OR=60 [facility] [place] mL/min/1.73m2 DIAGNOSTICS [place] BUN/creatinine NOT APPLICABLE 6 - 22 (calc) [facility] ratio DIAGNOSTICS [place] Sodium 133 (L) 135 - 146 mmol/L [facility] [place] Potassium 4.0 3.5 - 5.3 mmol/L [facility] [place] Chloride 100 98 - 110 mmol/L [facility] [place] CO2 25 20 - 32 mmol/L [facility] [place] Calcium 9.5 8.6 - 10.3 mg/dL [facility] [place] Protein 7.4 6.1 - 8.1 g/dL [facility] [place] Albumin, S 4.7 3.6 - 5.1 g/dL [facility] [place] Globulin, total 2.7 1.9 - 3.7 g/dL [facility] (calc) DIAGNOSTICS [place] Albumin/globuli 1.7 1.0 - 2.5 (calc) [facility] n ratio DIAGNOSTICS [place] Total bilirubin 0.7 0.2 - 1.2 mg/dL [facility] [place] Alkaline 87 40 - 115 U/L [facility] phosphatase DIAGNOSTICS [place] AST 37 (H) 10 - 35 U/L [facility] [place] ALT 48 (H) 9 - 46 U/L [facility] [place] Specimen Blood Narrative Performed At FASTING:YES [facility] FASTING: YES Resulting Agency Comment Performing Organization Information: Site ID: [id number] Name: [facility] Address: [address] [place] [id number] Director: Krupa Feng Performing Organization Address City/State/Zipcode Phone Number [facility] [place] [address] [place], [place] [id number] after 05/24/2018 Insurance Type Payer Benefit Subscriber ID Effective Phone Address Plan / Dates Group Indemnity AETNA AETNA xxxxxxxxxx 1993[facility] RE INDEMNITY Medicare MEDICARE MEDICARE xxxxxxxxxxx 2018-P [place], PART A AND resent [place] B Advance Directives For more information, please contact: [phone] 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
--- OUTSIDE RECORDS SUMMARY | 2019-05-25 17:16 | XMS REPORT | Summary of Care ---
Author Author [facility] Organization [facility] Address Unknown Phone Unavailable Encounter GILES Parekh(MAUDE) [id number] Date(s): 06/20/17 - 06/20/17 [facility] [address] [place] [address]- [phone] Discharge Disposition: Home or Self Care Attending Physician: Sarika Astorga MD Referring Physician: Sarika Astorga MD Vital Signs No data available for this section Problem List No data available for this section Allergies, Adverse Reactions, Alerts Substance Reaction Severity Status nka Active Medications gadobenate dimeglumine 7,935 mg, 15 mL, Route: IV, Drug form: INJ, ONCE, Start date: 06/20/17 11:06:00 CDT, Stop date: 06/20/17 11:06:00 CDT Notes: Same as Multihance Start Date: 06/20/17 Stop Date: 06/20/17 Status: Completed Omnipaque 350 100 mL, Route: IV, Drug Form: SOLN, ONCE, Start date: 06/20/17 11:05:00 CDT, Sto p date: 06/20/17 11:05:00 CDT Notes: (same as:Omnipaque 350).WASTE: F/P - Black; E - Municipal Trash Bin Start Date: 06/20/17 Stop Date: 06/20/17 Status: Completed Results CHEM PANEL Most recent to 1 oldest [Reference Range]: eGFR 100 mL/min/1.73m2 1 *NA* (06/20/17 10:10 AM) POC Creatinine 0.7 mg/dL [0.5-1.4 mg/dL] (06/20/17 10:10 AM) 1Result Comment: The eGFR is calculated [...]
--- OUTSIDE RECORDS SUMMARY | 2019-05-25 17:16 | XMS REPORT | Summary of Care ---
Author Author [facility] Outpatient Imaging [facility]patient [facility] Address Unknown Phone Unavailable Encounter HQ Encntr_alias(FIN) [id number] Date(s): 09/13/17 - 09/13/17 [facility] Outpatient Imaging [facility] [address] [facility], [address] [place] [address] [phone] Discharge Disposition: Home or Self Care Attending Physician: Darius Limon MD Vital Signs No data available for [...]
--- OUTSIDE RECORDS SUMMARY | 2019-05-25 17:17 | XMS REPORT | Summary of Care ---
Author Author [facility] Organization [facility] Address Unknown Phone Unavailable Encounter HQ Encntr_alias(FIN) [id number] Date(s): 02/15/18 - 02/15/18 [facility] [address] [place] [address]- Discharge Disposition: Home or Self Care Attending [...]
--- OUTSIDE RECORDS SUMMARY | 2019-05-25 17:17 | XMS REPORT | Summary of Care ---
Author Author [facility] Outpatient Imaging [facility]patient [facility] Address Unknown Phone Unavailable Encounter HQ Encntr_alias(FIN) [id number] Date(s): 02/07/18 - 02/07/18 [facility] Outpatient Imaging [facility] [address] [facility], [address] [place] [phone] Discharge Disposition: Home or Self Care Attending [...]
--- OUTSIDE RECORDS SUMMARY | 2019-05-25 17:17 | XMS REPORT ---
Author Author [facility] Address Unknown Phone Unavailable Care Team Providers Care Engineer Technician Name Role Phone ALEJANDRO OVALLE Unavailable Unavailable NASEEM ELLIS Unavailable Unavailable Problems This patient has no known problems. Allergies, Adverse Reactions, Alerts This patient has no known allergies or adverse reactions. Medications This patient has no known medications. Results Test Description Test Time Test Comments Text Results Atomic Results Result Comments CT LUMBAR SPINE WO 2018-08-24 12:14:00 [place] [address] Patient Name: BETTE TOLEDO MR #: [id number] : 1955 Age/Sex: 63/M Req #: [id number] Adm Physician: Ordered by: OVALLE ANDREW DO Report #: [id number] Location: CT Room/Bed: Procedure: [id number] CT/CT LUMBAR SPINE WO Exam Date: 08/23/18 Exam Time: 1600 REPORT STATUS: Signed Exams: Thoracic and lumbar spine CTs without IV contrast History: T12 compression fracture, back pain. Fall from ladder on 08/18/2018. Comparison studies: Included spine from abdomen pelvis CT 04/04/2015. Technique:: Axial were obtained through the thoracic and lumbar regions. Coronal and sagittal images reconstructed from the axial data. Intravenous contrast: None Findings: Alignment: Normal thoracic kyphosis. Normal lumbar lordosis. No significant scoliosis. Soft tissues: No abnormalities.. Paraspinal muscles: Unremarkable Spinal cord: Can not be evaluated. Vertebrae: Superior T12 endplate wedge compression fracture is new from the 04/04/2015 CT and results in approximately 20% height loss. There is only 2 mm retropulsion of the posterior superior vertebral body without significant canal stenosis. No other fractures. No evidence of infection or neoplasm. Changes of anterior cervical discectomy and fusion (ACDF) in the partially imaged cervical spine (cannot further evaluate on this exam). Partially imaged lower cervical spine: Moderate foraminal stenosis at C6-C7 due to uncovertebral facet arthrosis. Mildly degenerated disc at C7-T1. Thoracic degenerative changes: There is a Schmorl's node along the superior T6 endplate. Incidental bridging anterior osteophytes on the left from T3 to T5 and on the right from T7 to T11. Mild multilevel disc degeneration. Patent canal and foramina. Lumbar degenerative changes: L1-L2: Patent canal and foramina. L2-L3: Mildly degenerated disc with mild loss of disc height. Small disc bulge asymmetric to the left, mildly thickened ligamentum flavum and mild facet arthrosis with mild canal stenosis and mild left frontal stenosis. Patent right foramen. L3-L4: Mildly degenerated disc. Asymmetric left disc bulge, thickened ligamentum flavum and mild facet arthrosis with mild canal stenosis and mild left foraminal stenosis. Patent right foramen. L4-5: Mildly degenerated disc. Disc bulge with bilateral fo raminal disc ossify complexes, thickened ligamentum flavum and facet arthrosis with moderate canal stenosis moderate foraminal stenosis (left greater than right) . L5-S1: Mildly degenerated disc with mild loss of disc height and vacuum phenomena. A disc osteophyte complex and facet arthrosis result in moderate right and mild left foraminal stenosis. No significant canal stenosis. Incidental findings: Prior right cholecystectomy. Scattered calcified atherosclerosis (thoracic and abdominal aorta, bilateral renal artery origins, iliac arteries and coronary arteries). IMPRESSION: Thoracic and lumbar spines: 1. Superior T12 endplate compression fracture (approximate 20% height loss) with only minimal retropulsion without significant canal stenosis. 2. No other fractures or subluxations. 3. Degenerative changes as described most notable for moderate canal stenosis at L4-L5 and moderate foraminal stenosis bilaterally at L4-L5 and on the right L5-S1. 4. Changes of ACDF in the partially imaged lower cervical spine Signed by: Dr. Cornel De M.D. on 08/24/2018 12:36 PM Dictated By: CORNEL DE MD [id number] Transcribed By: AYDEN on 08/24/18 1236 COPY TO: ALEJANDRO OVALLE DO CT THORACIC SPINE WO 2018-08-24 12:14:00 [place] [address] Patient Name: BETTE TOLEDO MR #: [id number] : 1955 Age/Sex: 63/M Req #: [id number] Adm Physician: Ordered by: OVALLE ANDREW DO Report #: [id number] Location: CT Room/Bed: Procedure: [id number] CT/CT THORACIC SPINE WO Exam Date: 08/23/18 Exam Time: 1600 REPORT STATUS: Signed Exams: Thoracic and lumbar spine CTs without IV contra st History: T12 compression fracture, back pain. Fall from ladder on 08/18/2018. Comparison studies: Included spine from abdomen pelvis CT 04/04/2015. Technique:: Axial were obtained through the thoracic and lumbar regions. Coronal and sagittal images reconstructed from the axial data. Intravenous contrast: None Findings: Alignment: Normal thoracic kyphosis. Normal lumbar lordosis. No significant scoliosis. Soft tissues: No abnormalities.. Paraspinal muscles: Unremarkable Spinal cord: Can not be evaluated. Vertebrae: Superior T12 endplate wedge compression fracture is new from the 04/04/2015 CT and results in approximately 20% height loss. There is only 2 mm retropulsion of the posterior superior vertebral body without significant canal stenosis. No other fractures. No evidence of infection or neoplasm. Changes of anterior cervical discectomy and fusion (ACDF) in the partially imaged cervical spine (cannot further evaluate on this exam). Partially imaged lower cervical spine: Moderate foraminal stenosis at C6-C7 due to uncovertebral facet arthrosis. Mildly degenerated disc at C7- T1. Thoracic degenerative changes: There is a Schmorl's node along the superior T6 endplate. Incidental bridging anterior osteophytes on the left from T3 to T5 and on the right from T7 to T11. Mild multilevel disc degeneration. Patent canal and foramina. Lumbar degenerative changes: L1- L2: Patent canal and foramina. L2-L3: Mildly degenerated disc with mild loss of disc height. Small disc bulge asymmetric to the left, mildly thickened ligamentum flavum and mild facet arthrosis with mild canal stenosis and mild left frontal stenosis. Patent right foramen. L3-L4: Mildly degenerated disc. Asymmetric left disc bulge, thickened ligamentum flavum and mild facet arthrosis with mild canal stenosis and mild left foraminal stenosis. Patent right foramen. L4-5: Mildly degenerated disc. Disc bulge with bilateral fo raminal disc ossify complexes, thickened ligamentum flavum and facet arthrosis with moderate canal stenosis moderate foraminal stenosis (left greater than right) . L5-S1: Mildly degenerated disc with mild loss of disc height and vacuum phenomena. A disc osteophyte complex and facet arthrosis result in moderate right and mild left foraminal stenosis. No significant canal stenosis. Incidental findings: Prior right cholecystectomy. Scattered calcified atherosclerosis (thoracic and abdominal aorta, bilateral renal artery origins, iliac arteries and coronary arteries). IMPRESSION: Thoracic and lumbar spines: 1. Superior T12 endplate compression fracture (approximate 20% height loss) with only minimal retropulsion without significant canal stenosis. 2. No other fractures or subluxations. 3. Degenerative changes as described most notable for moderate canal stenosis at L4-L5 and moderate foraminal stenosis bilaterally at L4-L5 and on the right L5 -S1. 4. Changes of ACDF in the partially imaged lower cervical spine Signed by: Dr. Cornel De M.D. on 08/24/2018 12:36 PM Dictated By: CORNEL DE MD [id number] Transcribed By: AYDEN on 08/24/18 1236 COPY TO: ALEJANDRO OVALLE DO US ABDOMEN COMPLETE [facility] [address] [place] [address] Patient Name: BETTE TOLEDO MR #: [id number] : 1955 Age/Sex: 62/M Req #: [id number] Adm Physician: Ordered by: NASEEM ELLIS MD Report #: [id number] Location: US Room/Bed: Procedure: [id number] US/US ABDOMEN COMPLETE Exam Date: Exam Time: REPORT STATUS: Signed PROCEDURE: ABDOMINAL ULTRASOUND COMPARISON: None. INDICATIONS: Chronic Hepatitis C Technique: Groves scale color Doppler ultrasound. FINDINGS: Imaged segments of the inferior vena cava and abdominal aorta are of normal caliber. The mid aorta is obscured. Normal pancreatic head and proximal body. Detail is obscured by bowel gas. Right liver span is 14.3 cm. Nodular contour with increased echogenicity. Portal vein diameter 1.1 cm; normal flow direction. Cholecystectomy. Common bile duct diameter 4 mm. Right kidney: 10.4 x 5.9 x 5.1 cm. Left kidney: 11.9 x 6.1 x 5.1 cm. The left kidney contains an anechoic, noncalcified, avascular 1.5 cm parapelvic simple cyst. The kidneys are otherwise normal. Splenic length 8.5 cm. No ascites. CONCLUSION: 1. Nodular echogenic liver in keeping with cirrhosis. No conspicuous mass. 2. Cholecystectomy. Dictated by: Damian Gordon M.D. on 09/20/2017 at 11:01 Electronically approved by: Damian Gordon M.D. on 09/20/2017 at 11:01 Dictated By: DAMIAN GORDON MD 1101 Transcribed By: TICO on 09/20/17 1101 COPY TO: NASEEM ELLIS MD
--- OUTSIDE RECORDS SUMMARY | 2019-05-25 17:17 | XMS REPORT | Summary of Care ---
Author Author [facility] Organization [facility] Address Unknown Phone Unavailable Encounter HQ [place](FIN) [phone] Date(s): 12/28/18 - 12/28/18 [facility] [address] [place] [address]- [phone] Discharge Disposition: Home or Self Care Attending Physician: Sarika Astorga MD Referring Physician: Sarika Astorga MD Vital Signs 1 2 3 Most recent to oldest [Reference Range]: 175.26 cm (12/28/18 9:24 AM) Height 97.6 DegF (12/28/18 10:08 AM) Temperature Oral [96.4-99.1 DegF] 121/66 mmHg (12/28/18 12:45 PM) 126/63 mmHg (12/28/18 12:30 PM) 144/65 mmHg *HI* (12/28/18 12:19 PM) Blood Pressure [90-140/60-90 mmHg] 19 BRMIN (12/28/18 12:45 PM) 17 BRMIN (12/28/18 12:30 PM) 16 BRMIN (12/28/18 12:19 PM) Respiratory Rate [14-20 BRMIN] 62 bpm (12/28/18 12:19 PM) 61 bpm (12/28/18 10:08 AM) Peripheral Pulse Rate [60-100 bpm] 67.136 kg (12/28/18 9:24 AM) Weight 21.86 m2 (12/28/18 9:24 AM) Body Mass Index Problem List Condition Effective Dates Status Health Status Informant Occlusion of Active coronary artery stent(Confirmed) Hypertension(Confirm Active ed) Poor circulation of Active extremity(Confirmed) 1 1lower extremities Allergies, Adverse Reactions, Alerts Substance Reaction Severity Status nka Active Medications aspirin 81 mg tablet, enteric coated 81 mg=1 tab, PO, Daily, # 90 tab, 3 Refill(s) Start Date: 12/28/18 Status: Ordered Caltrate 600+D oral tablet, chewable 1 tab, CHEW, Daily, 0 Refill(s) Start Date: 12/28/18 Status: Ordered Centrum Cardio oral tablet 1 tab, PO, Daily, # 30 tab, 0 Refill(s) Start Date: 12/28/18 Status: Ordered CoQ10 300 mg, PO, Daily, 0 Refill(s) Start Date: 12/28/18 Status: Ordered diltiazem 120 mg/24 hours oral capsule, extended release 120 mg=1 cap, PO, # 30 cap, 0 Refill(s) Start Date: 12/28/18 Status: Ordered dorzolamide-timolol ophthalmic 1gtt, RIGHT EYE, BID, 0 Refill(s) Start Date: 12/28/18 Status: Ordered Effient 10 mg oral tablet 10 mg=1 tab, PO, Daily, # 30 tab, 0 Refill(s) Start Date: 12/28/18 Status: Ordered fenofibrate 48 mg oral tablet =1 cap, PO, Daily, # 30 cap, 0 Refill(s) Start Date: 12/28/18 Status: Ordered furosemide 20 mg oral tablet 20 mg=1 tab, PO, BID, 0 Refill(s) Start Date: 12/28/18 Status: Ordered hydroxychloroquine sulfate 200 mg oral tablet 400 mg=2 tab, PO, Daily, # 60 tab, 0 Refill(s) Start Date: 12/28/18 Status: Ordered latanoprost 0.005% preservative-free ophthalmic solution 1 gtt, BOTH EYES, Daily, 0 Refill(s) Start Date: 12/28/18 Status: Ordered Charlo 7.5/325 oral tablet 1 tab, PO, Q6H, PRN Pain, # 60 tab, 0 Refill(s) Start Date: 12/28/18 Stop Date: 01/12/19 Status: Ordered pravastatin 20 mg oral tablet 20 mg=1 tab, PO, Bedtime, # 30 tab, 0 Refill(s) Start Date: 12/28/18 Status: Ordered Vitamin C 500 mg oral tablet 500 mg=1 tab, PO, Daily, # 30 tab, 0 Refill(s) Start Date: 12/28/18 Status: Ordered Vitamin D3 2000 intl units oral capsule 2,000 IntlUnit=1 cap, PO, Daily, # 100 cap, 3 Refill(s) Start Date: 12/28/18 Status: Ordered Zetia 10 mg oral tablet 10 mg=1 tab, PO, Daily, # 30 tab, 0 Refill(s) Start Date: 12/28/18 Status: Ordered Results ELECTROLYTES Most recent to 1 2 oldest [Reference Range]: Sodium Lvl [135-145 139 mEq/L mEq/L] (12/28/18 10:04 AM) Potassium Lvl 5.2 mEq/L [3.5-5.1 mEq/L] *HI* (12/28/18 10:04 AM) Chloride Lvl [95-109 106 mEq/L mEq/L] (12/28/18 10:04 AM) CO2 [24-32 mEq/L] 26 mEq/L (12/28/18 10:04 AM) AGAP [10.0-20.0 12.2 mEq/L mEq/L] (12/28/18 10:04 AM) CHEM PANEL Most recent to 1 2 oldest [Reference Range]: Creatinine Lvl 0.92 mg/dL [0.50-1.40 mg/dL] (12/28/18 9:40 AM) eGFR 99 mL/min/1.73m2 1 87 mL/min/1.73m2 2 *NA* *NA* (12/28/18 10:06 AM) (12/28/18 9:40 AM) POC Creatinine 0.7 mg/dL [0.5-1.4 mg/dL] (12/28/18 10:06 AM) 1Result Comment: The eGFR is calculated [...] be mul tiplied by the estimated BMI. 2Result Comment: The eGFR is calculated using the [...] No data available for this section Procedures Procedure Date Related Diagnosis Body Site Status Cholecystectomy Completed Colonoscopy Completed Fusion of joint of cervical spine by anterior Completed approach for deformity of cervical spine Insertion of coronary artery stent Completed Social History Social History Type Response Alcohol Current1 Smoking Status Former smoker; Exposure to Tobacco Smoke None; Cigarette Smoking Last 365 Days Yes; Reg Smoking Cessation Counseling No2 entered on: 12/28/18 1socially 2quit 6 months ago Assessment and Plan No data available for this section
--- OUTSIDE RECORDS SUMMARY | 2019-05-25 17:18 | XMS REPORT | Clinical Summary ---
Author Author [facility] Organization [facility] Address Unknown Phone Unavailable Care Team Providers Care Shift Leader Name Role Phone Perico Salcido MD PCP Allergies No Known Allergies Medications End Date Status Medication Sig Dispensed Refills Start Date Active glycerin, adult, Insert 1 12 0 suppository rectal suppository suppository 8 suppository into the rectum once as needed (prn constipation) for up to 1 dose. Active zolpidem (AMBIEN) 5 MG Take 1 tablet 0 tablet by mouth 8 nightly. Active hilahept-[id number]-XM INSTILL 4 3 (CORTISPORIN) DROPS IN LEFT [...] 35.6 C (96 F) 08/27/2018 3:40 PM PEDIATRIC PHYSICAL THERAPY ASSISTANT Temperature 18 08/27/2018 7:07 PM PEDIATRIC PHYSICAL THERAPY ASSISTANT Respiratory Rate 99% 08/27/2018 7:07 PM PEDIATRIC PHYSICAL THERAPY ASSISTANT Oxygen Saturation - - Inhaled Oxygen Concentration 68 kg (150 lb) 02/05/2019 10:31 AM CDT Weight 175.3 cm (5' 9") 02/05/2019 10:31 AM CDT Height 22.15 02/05/2019 10:31 AM CDT Body Mass Index Plan of Treatment Care Team Description Date Type Specialty Phyllis Archer MD [address] [facility] [address] [place] [address] 06/12/2019 Office Visit Neurosurgery Health Maintenance Due Date Last Done Comments COLONOSCOPY SCREENING 2003 SHINGLES VACCINES (#1) 2003 65+ PNEUMOCOCCAL VACCINE 2018 (1 of 2 - PCV13) INFLUENZA VACCINE 04/25/2019 Procedures Comments Procedure Name Priority Date/Time Associated Diagnosis CT NECK EXTERNAL STUDY Routine 12/20/2018 10:15 AM CDT PROLACTIN LEVEL Routine 11/30/2018 Pituitary tumor 10:01 AM PEDIATRIC PHYSICAL THERAPY ASSISTANT Chronic nonintractable headache, unspecified headache type SEDIMENTATION RATE Routine 11/30/2018 Pituitary tumor 10:01 AM PEDIATRIC PHYSICAL THERAPY ASSISTANT Chronic nonintractable headache, unspecified headache type COMPREHENSIVE METABOLIC Routine 11/30/2018 Pituitary tumor PANEL 10:01 AM PEDIATRIC PHYSICAL THERAPY ASSISTANT Chronic nonintractable headache, unspecified headache type CBC WITH PLATELET AND Routine 11/30/2018 Pituitary tumor DIFFERENTIAL 10:01 AM PEDIATRIC PHYSICAL THERAPY ASSISTANT Chronic nonintractable headache, unspecified headache type after 05/24/2018 Results * CT Neck External Study (12/20/2018 10:15 AM CDT) Specimen Narrative Performed At This exam was not acquired at a [facility] facility and has not been RADIANT interpreted by a [facility] Provider.The exam was imported into our imaging system for comparisons purposes. Performing Organization Address City/State/Zipcode Phone Number [facility] [address] [place] [address] * Prolactin level (11/30/2018 10:01 AM PEDIATRIC PHYSICAL THERAPY ASSISTANT) Prolactin 7.4 2.0 - 18.0 ng/mL [facility] [place] Specimen Blood Narrative Performed At FASTING:YES [facility] FASTING: YES Resulting Agency Comment Performing Organization Information: Site ID: [id number] Name: [facility] Address: [address] [place] [address] Director: Krupa Feng Performing Organization Address City/State/Zipcode Phone Number [facility] [place] [address] [place] [address] * Sedimentation rate (11/30/2018 10:01 AM PEDIATRIC PHYSICAL THERAPY ASSISTANT) Sedimentation 2 < OR=20 mm/h [facility] rate coComment [place] Specimen Blood Narrative Performed At FASTING:YES [facility] FASTING: YES Resulting Agency Comment Performing Organization Information: Site ID: [id number] Name: [facility] Address: [address] [place] [id number] Director: Krupa Feng Performing Organization Address City/State/Zipcode Phone Number [facility] [employer] [place] [address] [address] * CBC with platelet and differential (11/30/2018 10:01 AM PEDIATRIC PHYSICAL THERAPY ASSISTANT) WBC 7.0 3.8 - 10.8 [facility] Thousand/uL [facility] [place] RBC 4.31 4.20 - 5.80 [facility] Million/uL [facility] [place] HGB 14.0 13.2 - 17.1 g/dL [facility] [place] HCT 40.6 38.5 - 50.0 % [facility] [place] MCV 94.2 80.0 - 100.0 fL [facility] [place] MCH 32.5 27.0 - 33.0 pg [facility] [place] MCHC 34.5 32.0 - 36.0 g/dL [facility] [place] RDW 12.4 11.0 - 15.0 % [facility] [place] Platelet count 338 140 - 400 [facility] Thousand/uL [facility] [place] MPV 9.8 7.5 - 12.5 fL [facility] [place] Neutrophils, 4,137 1,500 - 7,800 [facility] absolute cells/uL [facility] [place] Lymphocytes, 1,925 850 - 3,900 cells/uL [facility] absolute [facility] [place] Monocytes, 728 200 - 950 cells/uL [facility] absolute [facility] [place] Eosinophils, 182 15 - 500 cells/uL [facility] absolute [facility] [place] Basophils, 28 0 - 200 cells/uL [facility] absolute [facility] [place] Neutrophils 59.1 % [facility] [place] Lymphocytes 27.5 % [facility] [place] Monocytes 10.4 % [facility] [place] Eosinophils 2.6 % [facility] [place] Basophils + RC 0.4 % [facility] [place] Specimen Blood Narrative Performed At FASTING:YES [facility] FASTING: YES Resulting Agency Comment Performing Organization Information: Site ID: [id number] Name: [facility] Address: [address] [place] [id number] Director: Krupa Feng Performing Organization Address City/State/Zipcode Phone Number [facility] [place] [address] [place] [address] * Comprehensive metabolic panel (11/30/2018 10:01 AM PEDIATRIC PHYSICAL THERAPY ASSISTANT) [facility] Glucose 96 65 - 99 mg/dL [facility] Comment: DIAGNOSTICS Fasting [place] reference interval BUN, whole 14 7 - 25 mg/dL [facility] blood [facility] [place] Creatinine 0.85 0.70 - 1.25 mg/dL [facility] Comment: DIAGNOSTICS For patients >49 years of age, [place] the reference limit for Creatinine is approximately 13% higher for people identified as -Brazilian. EGFR Non-Afr. 91 > OR=60 [facility] Brazilian mL/min/1.73m2 [facility] [place] EGFR 106 > OR=60 [facility] Brazilian mL/min/1.73m2 [facility] [place] BUN/creatinine NOT APPLICABLE 6 - 22 (calc) [facility] ratio [facility] [place] Sodium 133 (L) 135 - 146 mmol/L [facility] [place] Potassium 4.0 3.5 - 5.3 mmol/L [facility] [place] Chloride 100 98 - 110 mmol/L [facility] [place] CO2 25 20 - 32 mmol/L [facility] [place] Calcium 9.5 8.6 - 10.3 mg/dL [facility] [place] Protein 7.4 6.1 - 8.1 g/dL [facility] [place] Albumin, S 4.7 3.6 - 5.1 g/dL [facility] [place] Globulin, total 2.7 1.9 - 3.7 g/dL [facility] (calc) [facility] [place] Albumin/globuli 1.7 1.0 - 2.5 (calc) [facility] n ratio [facility] [place] Total bilirubin 0.7 0.2 - 1.2 mg/dL [facility] [place] Alkaline 87 40 - 115 U/L [facility] phosphatase [facility] [place] AST 37 (H) 10 - 35 U/L [facility] [place] ALT 48 (H) 9 - 46 U/L [facility] [place] Specimen Blood Narrative Performed At FASTING:YES [facility] FASTING: YES Resulting Agency Comment Performing Organization Information: Site ID: [id number] Name: [facility] Address: [address] [place] [phone] Director: Krupa Feng Performing Organization Address City/State/Zipcode Phone Number [facility] [place] [address] [place], [place] [phone] after 05/24/2018 Insurance Type Payer Benefit Subscriber ID Effective Phone Address Plan / Dates Group Indemnity AETNA AETNA xxxxxxxxxx [facility] RE INDEMNITY Medicare MEDICARE MEDICARE xxxxxxxxxxx 2018-P [place], PART A AND resent [place] B Advance Directives For more information, please contact: [phone] Patient Instructional Technologist Explanation Type Date Recorded Advance Directives, Living Will and Medical Power of Scarf Gluer
--- OUTSIDE RECORDS SUMMARY | 2019-05-25 17:18 | XMS REPORT | Continuity of Care Document ---
Author Author [facility] [employer] Organization [facility] [employer] Address Unknown Phone Unavailable Care Team Providers Care Hospital Fellow Name Role Phone [facility] [employer] ([place]) Unavailable Unavailable Problems Problem Status Onset Date Classification Date Reported Comments Source DX: E23.6STENT 2017 RESOLUTE INTEGRITY Active 10/31/2018 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 E23.6 - OTHER DISORDERS OF PITUITARY G Active 01/22/2018 [facility] [place] DX: R07.89=/ M06.9=GARRY GUO, Active 06/06/2017 [facility] DX: E23.6= Active 06/06/2017 [facility] G44.53 - PRIMARY THUNDERCLAP HEADACHE [facility] Coronary stent occluded (finding) Active Problem 03/28/2019 [facility] Hypertensive disorder, systemic arterial (disorder) Active Problem 03/28/2019 [facility] Peripheral vascular disease (disorder) Active Problem 03/28/2019 lower extremities [facility] OTHER DISORDERS OF PITUITARY GLAND Active [facility] Medications Medication Details Route Status Patient Instructions Ordering Provider Order Date Source Acetaminophen 325 MG / Hydrocodone Bitartrate 7.5 MG Oral Tablet [[place] 7.5/325] 1 tab, PO, Q6H, PRN Pain, # 60 tab, 0 Refill(s) Active 12/28/2018 [facility] CoQ10 300 mg, PO, Daily, 0 Refill(s) Active 12/28/2018 [facility] Calcium Carbonate 1500 MG / Cholecalciferol 800 UNT Chewable Tablet [Caltrate Plus D] 1 tab, CHEW, Daily, 0 Refill(s) Active 12/28/2018 [facility] Fenofibrate 48 MG Oral Tablet =1 cap, PO, Daily, # 30 cap, 0 Refill(s) Active 12/28/2018 [facility] Furosemide 20 MG Oral Tablet 20 mg=1 tab, PO, BID, 0 Refill(s) Active 12/28/2018 [facility] Vitamin C 500 mg oral tablet 500 mg=1 tab, PO, Daily, # 30 tab, 0 Refill(s) Active 12/28/2018 [facility] Vitamin D3 2000 intl units oral capsule 2,000 IntlUnit=1 cap, PO, Daily, # 100 cap, 3 Refill(s) Active 12/28/2018 [facility] dorzolamide / Timolol 1gtt, RIGHT EYE, BID, 0 Refill(s) Active 12/28/2018 [facility] Centrum Cardio oral tablet 1 tab, PO, Daily, # 30 tab, 0 Refill(s) Active 12/28/2018 [facility] latanoprost 0.005% preservative-free ophthalmic solution 1 gtt, BOTH EYES, Daily, 0 Refill(s) Active 12/28/2018 [facility] prasugrel 10 MG Oral Tablet [Effient] 10 mg=1 tab, PO, Daily, # 30 tab, 0 Refill(s) Active 12/28/2018 [facility] pravastatin 20 mg oral tablet 20 mg=1 tab, PO, Bedtime, # 30 tab, 0 Refill(s) Active 12/28/2018 [facility] diltiazem 120 mg/24 hours oral capsule, extended release 120 mg=1 cap, PO, # 30 cap, 0 Refill(s) Active 12/28/2018 [facility] Aspirin 81 MG Enteric Coated Tablet 81 mg=1 tab, PO, Daily, # 90 tab, 3 Refill(s) Active 12/28/2018 [facility] ezetimibe 10 MG Oral Tablet [Zetia] 10 mg=1 tab, PO, Daily, # 30 tab, 0 Refill(s) Active 12/28/2018 [facility] Hydroxychloroquine Sulfate 200 MG Oral Tablet 400 mg=2 tab, PO, Daily, # 60 tab, 0 Refill(s) Active 12/28/2018 [facility] gadobenate dimeglumine 7,935 mg, 15 mL, Route: IV, Drug form: INJ, ONCE, Start date: 06/20/17 11:06:00 CDT, Stop date: 06/20/17 11:06:00 CDTNotes: Same as Multihance Inactive 06/20/2017 [facility] Omnipaque 350 100 mL, Route: IV, Drug Form: SOLN, ONCE, Start date: 06/20/17 11:05:00 CDT, Stop date: 06/20/17 11:05:00 CDTNotes: (same as:Omnipaque 350). WASTE: F/P - Black; E - Municipal Trash Bin Inactive 06/20/2017 [facility] Omnipaque 300 75 mL, Route: IV, Drug Form: SOLN, ONCE, Start date: 06/08/17 8:42:00 CDT, Stop date: 06/08/17 8:42:00 CDTNotes: (Same as:Omnipaque 300). WASTE: F/P - Black; E - Municipal Trash Bin Inactive 06/08/2017 [facility] Allergies, Adverse Reactions, Alerts Substance Category Reaction Severity Reaction type Status Date Reported Comments Source nka Assertion Drug allergy Active [facility] [place] Immunizations No Data Provided for This Section [...] should be multiplied by the estimated BMI. [facility] CHEM PANEL POC Creatinine 0.7 0.5 - 1.4 12/28/2018 [facility] ELECTROLYTES Sodium Lvl 139 135 - 145 12/28/2018 [facility] ELECTROLYTES AGAP 12.2 10.0 - 20.0 12/28/2018 [facility] ELECTROLYTES Chloride Lvl 106 95 - 109 12/28/2018 [facility] ELECTROLYTES CO2 26 24 - 32 12/28/2018 [facility] ELECTROLYTES Potassium Lvl 5.2 3.5 - 5.1 12/28/2018 [facility] CHEM PANEL Creatinine Lvl 0.92 0.50 - 1.40 12/28/2018 [facility] CHEM PANEL eGFR 87 12/28/2018 [...] should be multiplied by the estimated BMI. [facility] CHEM PANEL eGFR 100 06/20/2017 [...] should be multiplied by the estimated BMI. [facility] CHEM PANEL POC Creatinine 0.7 0.5 - 1.4 06/20/2017 [facility] CHEM PANEL eGFR 94 06/08/2017 [...] should be multiplied by the estimated BMI. [facility] CHEM PANEL POC Creatinine 0.8 0.5 - 1.4 06/08/2017 [facility] Pathology Reports No Data Provided [...] about 40% of T12 vertebral body. 03/26/2019 [facility] Brain Pituitary w/wo contrast MRI [...] adenohypophysis is normally enhanced. SL: ESTER 12/28/2018 [facility] Neck CTA EXAM: CT ANGIOGRAM [...] distal internal carotid artery {NASCET criteria}.) 12/17/2018 [facility] Brain Pituitary w/wo contrast MRI [...] Sinusitis/inflammatory changes of the paranasal sinuses. SL: [id number] 02/15/2018 [facility] Chest wo contrast CT EXAM: [...] both lungs. Coronary and aortic atherosclerosis. 02/07/2018 [facility] wo contrast CT EXAM: CT CHEST WITHOUT CONTRAST DATE: 09/13/2017 12:30 PM BLADDER TIER INDICATION: - R06.02 Shortness of breath TECHNIQUE: [...] or MRI abdomen using adrenal protocol. 09/13/2017 [facility] Chest CTA Patient Name: BETTE TOLEDO : 1955; Age: 62 years y/o Male MR: [id number] Study: Chest CTA 06/20/2017 10:59 AM CDT [...] is recommended. 5. Small paraesophageal hernia. SL: [id number]. 06/20/2017 [facility] Brain Pituitary w/wo contrast MRI [...] right maxillary air-fluid level. SL: [id number] 06/20/2017 [facility] Brain/Neck CTA Study: Brain/Neck CTA 06/08/2017 8:18 AM CDT Patient Name: BETTE TOLEDO MR: [id number] : 1955; Age: 62 years y/o Male [...] visualized portions are clear. IMPRESSION: 1. Normal [place] of [place] without significant intracranial atherosclerosis or [...] of an asymptomatic smoker. SL: [id number] 06/08/2017 [facility] Chest 2 views DX Two-view chest Patient Name: BETTE TOLEDO : 1955; Age: 62 years Male MR: [id number] Study: Chest 2 views DX Order Time: [...] radiographic evidence of acute pulmonary disease. SL: [id number] 06/08/2017 [facility] contrast MRV MR venogram of the cranium without contrast 04/26/2017 9:51 AM CDT Clinical: Headache. Comparison: None available. Findings: The major dural venous sinuses are patent. Internal cerebral veins and vein of Edu are also patent. IMPRESSION: Patent dural venous sinuses. 04/26/2017 [facility] [place] Brain w/wo contrast MRI Brain w/wo contrast [...] further assessment. 4. Significant ethmoid sinusitis. [facility]2017 [facility] [place] Consultation Notes No Data Provided for This Section Discharge Summaries No Data Provided for This Section History and Physicals No Data Provided for This Section Vital Signs Vital Sign Value Date Comments Source Respitory Rate 19 12/28/2018 [facility] Systolic (mm Hg) 121 12/28/2018 [facility] Diastolic (mm Hg) 66 12/28/2018 [facility] Respitory Rate 17 12/28/2018 [facility] Systolic (mm Hg) 126 12/28/2018 [facility] Diastolic (mm Hg) 63 12/28/2018 [facility] Heart Rate 62 12/28/2018 [facility] Systolic (mm Hg) 144 12/28/2018 [facility] Diastolic (mm Hg) 65 12/28/2018 [facility] Respitory Rate 16 12/28/2018 [facility] Temperature Oral (F) 97.6 F 12/28/2018 [facility] Heart Rate 61 12/28/2018 [facility] BMI Calculated 21.86 12/28/2018 [facility] Height 175.26 cm 12/28/2018 [facility] Weight 67.136 12/28/2018 [facility] Encounters Location Location Details Encounter Type Encounter Number Reason For Visit Attending Provider ADM Date DC Date Status Source [facility] - [place] Outpt Diag Services [id number] Non Physician 04/26/2017 04/27/2017 [facility] Outpatient [id number] Sarika Astorga 06/08/2017 06/09/2017 [facility] Outpatient [id number] Sarika Astorga 06/20/2017 06/21/2017 [facility] Outpatient Imaging - [place] Outpt Diag Services [id number] Darius Limon 09/13/2017 09/14/2017 [facility] Outpatient Imaging - [place] Outpt Diag Services [id number] Darius Limon 02/07/2018 02/08/2018 [facility] Outpatient [id number] Sarika Astorga 02/15/2018 02/16/2018 [facility] Outpatient Imaging - [place] Outpt Diag Services [id number] Pastor Lopez 12/17/2018 12/18/2018 [facility] Outpatient [id number] Sarika Croftjocelin 12/28/2018 12/29/2018 [facility] Outpatient Imaging - [place] Outpt Diag Services [id number] Darius Braxton 03/26/2019 03/27/2019 [facility] Procedures Procedure Code Date Perfomer Comments Source Cholecystectomy [id number] [facility] Colonoscopy [id number] [facility] Fusion of joint of cervical spine by anterior approach for deformity of cervical spine [id number] [facility] Insertion of coronary artery stent [id number] [facility] Assessment and Plan No Data Provided for This Section Plan of Care No Data Provided for This Section Social History Social History Date Source Social History TypeResponse Alcohol Current1 Smoking Status Former smoker; Exposure to Tobacco Smoke None; Cigarette Smoking Last 365 Days Yes; Reg Smoking Cessation Counseling No2 entered on: 12/28/18 [id number] 6 months ago 12/28/2018 [facility] Social History TypeResponse Alcohol Current1 Smoking Status Former smoker; Exposure to Tobacco Smoke None; Cigarette Smoking Last 365 Days Yes; Reg Smoking Cessation Counseling No2 entered on: 12/28/18 [id number] 6 months ago 12/28/2018 [facility] No data available for this section 04/27/2017 ROGELIO Dick Family History No Data Provided for This Section Advance Directives No Data Provided for This Section Functional Status No Data Provided for This Section
[2019-05-25] MEDS ORDERED: ASPIRIN 81 MG CHEW TAB PO ONE ×2 (17:30→19:00)
[2019-05-25] MEDS ORDERED: ACETAMINOPHEN 325 MG TAB PO ONE (18:00)
[2019-05-25 18:03] LABS: BASOPHILS % 0.3 % (0.0-1.0); EOSINOPHILS # (AUTO) 0.1 (0.0-0.4); EOSINOPHILS % 0.5 % (0.0-6.0); HEMOGLOBIN 11.1 g/dL (14.0-18.0); LYMPHOCYTES # (AUTO) 2.2 (1.0-3.2); LYMPHOCYTES % 19.9 % (18.0-39.1); MEAN CORPUSCULAR HEMOGLOBIN 33.3 pg (28-32); MEAN CORPUSCULAR HGB CONC 33.6 g/dL (31-35); MEAN CORPUSCULAR VOLUME 99.1 fL (81-99); MONOCYTES # (AUTO) 0.8 (0.2-0.8); MONOCYTES % 7.4 % (4.4-11.3); NEUTROPHILS # (AUTO) 7.8 (2.1-6.9); NEUTROPHILS % 70.5 % (38.7-80.0); PLATELET COUNT 295 x10e3/uL (140-360); RED BLOOD COUNT 3.33 x10e6/uL (4.3-5.7); RED CELL DISTRIBUTION WIDTH 13.6 % (11.7-14.4)
[2019-05-25 18:17] LABS: INR 0.92; PROTHROMBIN TIME 12.9 seconds (11.9-14.5)
--- NOTE | 2019-05-25 18:25 | NUR ---
RADIOLOGY AT BEDSIDE FOR CXR AT THIS TIME.
[2019-05-25 18:26] LABS: ALANINE AMINOTRANSFERASE 61 IU/L (0-55); ALBUMIN 3.1 g/dL (3.5-5.0); ALBUMIN/GLOBULIN RATIO 1.1 (0.8-2.0); ALKALINE PHOSPHATASE 86 IU/L (40-150); ANION GAP 15.1 mmol/L (8-16); BLOOD UREA NITROGEN 51 mg/dL (7-26); BUN/CREATININE RATIO 74 (6-25); CALCIUM 9.3 mg/dL (8.4-10.2); CARBON DIOXIDE 25 mmol/L (22-29); CHLORIDE 103 mmol/L (98-107); CREATINE KINASE 44 IU/L (30-200); CREATININE, SERUM 0.69 mg/dL (0.72-1.25); EST GLOMERULAR FILTRATION RATE > 60 ML/MIN (60-); GLUCOSE 102 mg/dL (74-118); LIPASE 33 U/L (8-78); POTASSIUM 4.1 mmol/L (3.5-5.1); SODIUM 139 mmol/L (136-145)
--- NOTE | 2019-05-25 18:47 | Diagnostic Imaging Report ---
A single frontal view of the chest. HISTORY: Shortness of breath, chest pain COMPARISON: Chest radiograph January 08, 2015 DISCUSSION: Portable technique, limits sensitivity of the exam. Soft tissue attenuation partially limits sensitivity of the exam. Overlying monitoring leads. Left anterior oblique rotation. Tubes/Lines: None Lungs and pleura: No evidence of a consolidative pneumonia or pulmonary alveolar edema. No definite pleural effusion or pneumothorax is identified. Heart and mediastinum: The cardiomediastinal silhouette appear(s) unremarkable. Bones and soft tissues: Partially visualized metallic cervical fixation hardware. IMPRESSION: 1. No acute radiographic abnormality. 2. No significant interval change. Signed by: Dr. Theodore [place] D.O., M.M.M. on 05/25/2019 6:44 PM
[2019-05-25] MEDS ORDERED: ONDANSETRON HCL INJ 2MG/ML 2ML 2 MG/ML VIAL IV PRN (19:00)
[2019-05-25] MEDS ORDERED: HYDROCODONE/APAP 5MG-325MG TAB PO PRN (19:15)
[2019-05-25] MEDS ORDERED: TRAMADOL HCL 50 MG TAB PO ONE (19:30)
[2019-05-25 20:37] VITALS: BP 114/67
--- OUTSIDE RECORDS SUMMARY | 2019-05-25 20:57 | XMS REPORT | Clinical Summary ---
Author Author [facility] Address Unknown Phone Unavailable Care Team Providers Care Loan Coordinator Name Role Phone Perico Salcido MD PCP Allergies No Known Allergies Medications End Date Status Medication Sig Dispensed Refills Start Date Active glycerin, adult, Insert 1 12 0 suppository rectal suppository suppository 8 suppository into the rectum once as needed (prn constipation) for up to 1 dose. Active zolpidem (AMBIEN) 5 MG Take 1 tablet 0 tablet by mouth 8 nightly. Active [id number] INSTILL 4 3 (CORTISPORIN) DROPS IN LEFT [...] 35.6 C (96 F) 08/27/2018 3:40 PM INDUSTRIAL HYGIENE MANAGER Temperature 18 08/27/2018 7:07 PM INDUSTRIAL HYGIENE MANAGER Respiratory Rate 99% 08/27/2018 7:07 PM INDUSTRIAL HYGIENE MANAGER Oxygen Saturation - - Inhaled Oxygen Concentration 68 kg (150 lb) 02/05/2019 10:31 AM CDT Weight 175.3 cm (5' 9") 02/05/2019 10:31 AM CDT Height 22.15 02/05/2019 10:31 AM CDT Body Mass Index Plan of Treatment Care Team Description Date Type Specialty Phyllis Archer MD [address] [facility] [address] [place] [address] 06/12/2019 Office Visit Neurosurgery Health Maintenance Due Date Last Done Comments COLONOSCOPY SCREENING 2003 SHINGLES VACCINES (#1) 2003 65+ PNEUMOCOCCAL VACCINE 2018 (1 of 2 - PCV13) INFLUENZA VACCINE 04/25/2019 Procedures Comments Procedure Name Priority Date/Time Associated Diagnosis CT NECK EXTERNAL STUDY Routine 12/20/2018 10:15 AM CDT PROLACTIN LEVEL Routine 11/30/2018 Pituitary tumor 10:01 AM INDUSTRIAL HYGIENE MANAGER Chronic nonintractable headache, unspecified headache type SEDIMENTATION RATE Routine 11/30/2018 Pituitary tumor 10:01 AM INDUSTRIAL HYGIENE MANAGER Chronic nonintractable headache, unspecified headache type COMPREHENSIVE METABOLIC Routine 11/30/2018 Pituitary tumor PANEL 10:01 AM INDUSTRIAL HYGIENE MANAGER Chronic nonintractable headache, unspecified headache type CBC WITH PLATELET AND Routine 11/30/2018 Pituitary tumor DIFFERENTIAL 10:01 AM INDUSTRIAL HYGIENE MANAGER Chronic nonintractable headache, unspecified headache type after 05/24/2018 Results * CT Neck External Study (12/20/2018 10:15 AM CDT) Specimen Narrative Performed At This exam was not acquired at a [facility] facility and has not been RADIANT interpreted by a [facility] Provider.The exam was imported into our imaging system for comparisons purposes. Performing Organization Address City/State/Zipcode Phone Number [facility] [address] [place] [address] * Prolactin level (11/30/2018 10:01 AM INDUSTRIAL HYGIENE MANAGER) Prolactin 7.4 2.0 - 18.0 ng/mL [place] Specimen Blood Narrative Performed At FASTING:YES [facility] FASTING: YES Resulting Agency Comment Performing Organization Information: Site ID: [id number]: [facility] Address: [address] [place] [address] Director: Krupa Feng Performing Organization Address City/State/Zipcode Phone Number JAJA BROWN [place] [address] [place] [address] * Sedimentation rate (11/30/2018 10:01 AM INDUSTRIAL HYGIENE MANAGER) Sedimentation 2 < OR=20 mm/h [facility] rate [facility] [place] Specimen Blood Narrative Performed At FASTING:YES [facility] FASTING: YES Resulting Agency Comment Performing Organization Information: Site ID: [id number]: [facility] Address: [address] [place] [id number] Director: Krupa Feng Performing Organization Address City/State/Zipcode Phone Number JAJA MANGO [facility] [place]EV[place] [address] [address] * CBC with platelet and differential (11/30/2018 10:01 AM INDUSTRIAL HYGIENE MANAGER) WBC 7.0 3.8 - 10.8 [facility] Thousand/uL [facility] [place] RBC 4.31 4.20 - 5.80 [facility] Million/uL [facility] [place] HGB 14.0 13.2 - 17.1 g/dL [facility] [place] HCT 40.6 38.5 - 50.0 % [facility] [place] MCV 94.2 80.0 - 100.0 fL [facility] [place] MCH 32.5 27.0 - 33.0 pg [facility] [place] MCHC 34.5 32.0 - 36.0 g/dL [facility] [place] RDW 12.4 11.0 - 15.0 % [facility] [place] Platelet count 338 140 - 400 [facility] Thousand/uL [facility] [place] MPV 9.8 7.5 - 12.5 fL [facility] [place] Neutrophils, 4,137 1,500 - 7,800 [facility] absolute cells/uL [facility] [place] Lymphocytes, 1,925 850 - 3,900 cells/uL [facility] absolute [facility] [place] Monocytes, 728 200 - 950 cells/uL [facility] absolute [facility] [place] Eosinophils, 182 15 - 500 cells/uL [facility] absolute [facility] [place] Basophils, 28 0 - 200 cells/uL [facility] absolute [facility] [place] Neutrophils 59.1 % [facility] [place] Lymphocytes 27.5 % [facility] [place] Monocytes 10.4 % [facility] [place] Eosinophils 2.6 % [facility] [place] Basophils + RC 0.4 % [facility] [place] Specimen Blood Narrative Performed At FASTING:YES [facility] FASTING: YES Resulting Agency Comment Performing Organization Information: Site ID: [id number]: [facility] Address: [address] [place] [phone] Director: Krupa Feng Performing Organization Address City/State/Zipcode Phone Number JAJA [place] [address] [place] [address] * Comprehensive metabolic panel (11/30/2018 10:01 AM INDUSTRIAL HYGIENE MANAGER) [facility] Glucose 96 65 - 99 mg/dL [facility] Comment: DIAGNOSTICS Fasting [place] reference interval BUN, whole 14 7 - 25 mg/dL [facility] blood [facility] [place] Creatinine 0.85 0.70 - 1.25 mg/dL [facility] Comment: DIAGNOSTICS For patients >49 years of age, [place] the reference limit for Creatinine is approximately 13% higher for people identified as -[place]. EGFR Non-Afr. 91 > OR=60 [facility] [place]ian mL/min/1.73m2 [facility]ST[facility] [place] EGFR 106 > OR=60 [facility] [place] mL/min/1.73m2 [facility] [place] BUN/creatinine NOT APPLICABLE 6 - 22 (calc) [facility] ratio [facility] [place] Sodium 133 (L) 135 - 146 mmol/L [facility] [place] Potassium 4.0 3.5 - 5.3 mmol/L [facility] [place] Chloride 100 98 - 110 mmol/L [facility] [place] CO2 25 20 - 32 mmol/L [facility] [place] Calcium 9.5 8.6 - 10.3 mg/dL [facility] [place] Protein 7.4 6.1 - 8.1 g/dL [facility] [place] Albumin, S 4.7 3.6 - 5.1 g/dL [facility] [place] Globulin, total 2.7 1.9 - 3.7 g/dL [facility] (calc) [facility] [place] Albumin/globuli 1.7 1.0 - 2.5 (calc) [facility] n ratio [facility] [place] Total bilirubin 0.7 0.2 - 1.2 mg/dL [facility] [place] Alkaline 87 40 - 115 U/L [facility] phosphatase [facility] [place] AST 37 (H) 10 - 35 U/L [facility] [place] ALT 48 (H) 9 - 46 U/L [facility] [place] Specimen Blood Narrative Performed At FASTING:YES [facility] FASTING: YES Resulting Agency Comment Performing Organization Information: Site ID: [id number]: [facility] Address: [address] [place] [phone] Director: Krupa Feng Performing Organization Address City/State/Zipcode Phone Number [facility] [place] [address] [place], [place] [id number] after 05/24/2018 Insurance Type Payer Benefit Subscriber ID Effective Phone Address Plan / Dates Group Indemnity AETNA AETNA xxxxxxxxxx [id number] RE INDEMNITY Medicare MEDICARE MEDICARE xxxxxxxxxxx 2018-P [place], PART A AND resent [place] B Advance Directives For more information, please contact: [phone] 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
--- OUTSIDE RECORDS SUMMARY | 2019-05-25 20:57 | XMS REPORT | Continuity of Care Document ---
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 Active 02/06/2018 [facility] E23.6 - OTHER DISORDERS OF PITUITARY G Active 01/22/2018 [facility] DX: R07.89=/ M06.9=GARRY GUO, Active 06/06/2017 [facility] DX: E23.6= Active 06/06/2017 [facility] G44.53 - PRIMARY THUNDERCLAP HEADACHE [facility]/11/2017 [facility] Coronary stent occluded (finding) Active Problem 03/28/2019 [facility] Hypertensive disorder, systemic arterial (disorder) Active Problem 03/28/2019 [facility] Peripheral vascular disease (disorder) Active Problem 03/28/2019 lower extremities [facility] OTHER DISORDERS OF PITUITARY GLAND Active [facility] Medications Medication Details Route Status Patient Instructions Ordering Provider Order Date Source Acetaminophen 325 MG / Hydrocodone Bitartrate 7.5 MG Oral Tablet [[place] 7.5/325] 1 tab, PO, Q6H, PRN Pain, # 60 tab, 0 Refill(s) Active 12/28/2018 [facility] CoQ10 300 mg, PO, Daily, 0 Refill(s) Active 12/28/2018 [facility] Calcium Carbonate 1500 MG / Cholecalciferol 800 UNT Chewable Tablet [Caltrate Plus D] 1 tab, CHEW, Daily, 0 Refill(s) Active 12/28/2018 [facility] Fenofibrate 48 MG Oral Tablet =1 cap, PO, Daily, # 30 cap, 0 Refill(s) Active 12/28/2018 [facility] Furosemide 20 MG Oral Tablet 20 mg=1 tab, PO, BID, 0 Refill(s) Active 12/28/2018 [facility] Vitamin C 500 mg oral tablet 500 mg=1 tab, PO, Daily, # 30 tab, 0 Refill(s) Active 12/28/2018 [facility] Vitamin D3 2000 intl units oral capsule 2,000 IntlUnit=1 cap, PO, Daily, # 100 cap, 3 Refill(s) Active 12/28/2018 [facility] dorzolamide / Timolol 1gtt, RIGHT EYE, BID, 0 Refill(s) Active 12/28/2018 [facility] Centrum Cardio oral tablet 1 tab, PO, Daily, # 30 tab, 0 Refill(s) Active 12/28/2018 [facility] latanoprost 0.005% preservative-free ophthalmic solution 1 gtt, BOTH EYES, Daily, 0 Refill(s) Active 12/28/2018 [facility] prasugrel 10 MG Oral Tablet [Effient] 10 mg=1 tab, PO, Daily, # 30 tab, 0 Refill(s) Active 12/28/2018 [facility] pravastatin 20 mg oral tablet 20 mg=1 tab, PO, Bedtime, # 30 tab, 0 Refill(s) Active 12/28/2018 [facility] diltiazem 120 mg/24 hours oral capsule, extended release 120 mg=1 cap, PO, # 30 cap, 0 Refill(s) Active 12/28/2018 [facility] Aspirin 81 MG Enteric Coated Tablet 81 mg=1 tab, PO, Daily, # 90 tab, 3 Refill(s) Active 12/28/2018 [facility] ezetimibe 10 MG Oral Tablet [Zetia] 10 mg=1 tab, PO, Daily, # 30 tab, 0 Refill(s) Active 12/28/2018 [facility] Hydroxychloroquine Sulfate 200 MG Oral Tablet 400 mg=2 tab, PO, Daily, # 60 tab, 0 Refill(s) Active 12/28/2018 [facility] gadobenate dimeglumine 7,935 mg, 15 mL, Route: IV, Drug form: INJ, ONCE, Start date: 06/20/17 11:06:00 CDT, Stop date: 06/20/17 11:06:00 CDTNotes: Same as Multihance Inactive 06/20/2017 [facility] Omnipaque 350 100 mL, Route: IV, Drug Form: SOLN, ONCE, Start date: 06/20/17 11:05:00 CDT, Stop date: 06/20/17 11:05:00 CDTNotes: (same as:Omnipaque 350). WASTE: F/P - Black; E - Municipal Trash Bin Inactive 06/20/2017 [facility] Omnipaque 300 75 mL, Route: IV, Drug Form: SOLN, ONCE, Start date: 06/08/17 8:42:00 CDT, Stop date: 06/08/17 8:42:00 CDTNotes: (Same as:Omnipaque 300). WASTE: F/P - Black; E - Municipal Trash Bin Inactive 06/08/2017 [facility] Allergies, Adverse Reactions, Alerts Substance Category Reaction Severity Reaction type Status Date Reported Comments Source nka Assertion Drug allergy Active [facility] [place] Immunizations No Data Provided for This Section [...] should be multiplied by the estimated BMI. [facility] CHEM PANEL POC Creatinine 0.7 0.5 - 1.4 12/28/2018 [facility] ELECTROLYTES Sodium Lvl 139 135 - 145 12/28/2018 [facility] ELECTROLYTES AGAP 12.2 10.0 - 20.0 12/28/2018 [facility] ELECTROLYTES Chloride Lvl 106 95 - 109 12/28/2018 [facility] ELECTROLYTES CO2 26 24 - 32 12/28/2018 [facility] ELECTROLYTES Potassium Lvl 5.2 3.5 - 5.1 12/28/2018 [facility] CHEM PANEL Creatinine Lvl 0.92 0.50 - 1.40 12/28/2018 [facility] CHEM PANEL eGFR 87 12/28/2018 Result Comment: [...] should be multiplied by the estimated BMI. [facility] CHEM PANEL eGFR 100 06/20/2017 Result Comment: [...] should be multiplied by the estimated BMI. [facility] CHEM PANEL POC Creatinine 0.7 0.5 - 1.4 06/20/2017 [facility] CHEM PANEL eGFR 94 06/08/2017 Result Comment: [...] should be multiplied by the estimated BMI. [facility] CHEM PANEL POC Creatinine 0.8 0.5 - 1.4 06/08/2017 [facility] Pathology Reports No Data Provided for This [...] about 40% of T12 vertebral body. 03/26/2019 [facility] Brain Pituitary w/wo contrast MRI Clinical Indication: [...] adenohypophysis is normally enhanced. SL: ESTER 12/28/2018 [facility] Neck CTA EXAM: CT ANGIOGRAM OF THE [...] distal internal carotid artery {NASCET criteria}.) 12/17/2018 [facility] Brain Pituitary w/wo contrast MRI Clinical Indication: [...] Sinusitis/inflammatory changes of the paranasal sinuses. SL: [id number] 02/15/2018 [facility] Chest wo contrast CT EXAM: CT CHEST [...] both lungs. Coronary and aortic atherosclerosis. 02/07/2018 [facility] wo contrast CT EXAM: CT CHEST WITHOUT CONTRAST DATE: 09/13/2017 12:30 PM WELDER ASSISTANT INDICATION: - R06.02 Shortness of breath TECHNIQUE: [...] or MRI abdomen using adrenal protocol. 09/13/2017 [facility] Chest CTA Patient Name: BETTE TOLEDO : 1955; Age: 62 years y/o Male MR: [id number] Study: Chest CTA 06/20/2017 10:59 AM CDT [...] is recommended. 5. Small paraesophageal hernia. SL: [id number]. 06/20/2017 [facility] Brain Pituitary w/wo contrast MRI MRI PITUITARY [...] right maxillary air-fluid level. SL: [id number] 06/20/2017 [facility] Brain/Neck CTA Study: Brain/Neck CTA 06/08/2017 8:18 AM CDT Patient Name: BETTE TOLEDO MR: [id number] : 1955; Age: 62 years y/o Male [...] visualized portions are clear. IMPRESSION: 1. Normal elem of [place] without significant intracranial atherosclerosis or [...] of an asymptomatic smoker. SL: [id number] 06/08/2017 [facility] Chest 2 views DX Two-view chest Patient Name: BETTE TOLEDO : 1955; Age: 62 years Male MR: [id number] Study: Chest 2 views DX Order Time: [...] radiographic evidence of acute pulmonary disease. SL: [id number] 06/08/2017 [facility] wo contrast MRV MR venogram of the cranium without contrast 04/26/2017 9:51 AM CDT Clinical: Headache. Comparison: None available. Findings: The major dural venous sinuses are patent. Internal cerebral veins and vein of Edu are also patent. IMPRESSION: Patent dural venous sinuses. 04/26/2017 [facility] Brain w/wo contrast MRI Brain w/wo contrast [...] further assessment. 4. Significant ethmoid sinusitis. [facility] Consultation Notes No Data Provided for This Section Discharge Summaries No Data Provided for This Section History and Physicals No Data Provided for This Section Vital Signs Vital Sign Value Date Comments Source Respitory Rate 19 12/28/2018 [facility] Systolic (mm Hg) 121 12/28/2018 [facility] Diastolic (mm Hg) 66 12/28/2018 [facility] Respitory Rate 17 12/28/2018 [facility] Systolic (mm Hg) 126 12/28/2018 [facility] Diastolic (mm Hg) 63 12/28/2018 [facility] Heart Rate 62 12/28/2018 [facility] Systolic (mm Hg) 144 12/28/2018 [facility] Diastolic (mm Hg) 65 12/28/2018 [facility] Respitory Rate 16 12/28/2018 [facility] Temperature Oral (F) 97.6 F 12/28/2018 [facility] Heart Rate 61 12/28/2018 [facility] BMI Calculated 21.86 12/28/2018 [facility] Height 175.26 cm 12/28/2018 [facility] Weight 67.136 12/28/2018 [facility] Encounters Location Location Details Encounter Type Encounter Number Reason For Visit Attending Provider ADM Date DC Date Status Source [facility] [id number] Non Physician 04/26/2017 04/27/2017 [facility] Outpatient [id number] Sarika Astorga 06/08/2017 06/09/2017 [facility] Outpatient [id number] Sarika Astorga 06/20/2017 06/21/2017 [facility] Outpatient [facility] - [facility] [id number] Darius Limon 09/13/2017 09/14/2017 [facility] Outpatient Imaging - [facility] [id number] Darius Limon 02/07/2018 02/08/2018 [facility] Outpatient [id number] Sarika Astorga 02/15/2018 02/16/2018 [facility] Outpatient [facility] [id number] Pastor Lopez 12/17/2018 12/18/2018 [facility] Outpatient [id number] Sarkia Croftjocelin 12/28/2018 12/29/2018 [facility] Outpatient [facility] - [facility] [id number] Darius Braxton 03/26/2019 03/27/[address] [facility] Procedures Procedure Code Date Perfomer Comments Source Cholecystectomy [id number] [facility] Colonoscopy [id number] [facility] Fusion of joint of cervical spine by anterior approach for deformity of cervical spine [id number] [facility] Insertion of coronary artery stent [id number] [facility] Assessment and Plan No Data Provided for This Section Plan of Care No Data Provided for This Section Social History Social History Date Source Social History TypeResponse Alcohol Current1 Smoking Status Former smoker; Exposure to Tobacco Smoke None; Cigarette Smoking Last 365 Days Yes; Reg Smoking Cessation Counseling No2 entered on: 12/28/18 [id number] 6 months ago 12/28/[address] [facility] Social History TypeResponse Alcohol Current1 Smoking Status Former smoker; Exposure to Tobacco Smoke None; Cigarette Smoking Last 365 Days Yes; Reg Smoking Cessation Counseling No2 entered on: 12/28/18 [id number] 6 months ago 12/28/2018 [facility] No data available for this section 04/27/2017 [facility] Family History No Data Provided for This Section Advance Directives No Data Provided for This Section Functional Status No Data Provided for This Section
[2019-05-25 21:24] VITALS: BP 114/67
[2019-05-25] MEDS: HYDROCODONE/APAP 5MG-325MG TAB PO PRN (22:47)
[2019-05-25 23:25] VITALS: BP 111/68
[2019-05-25 23:40] VITALS: BP 120/60
--- NOTE | 2019-05-25 23:45 | NUR ---
PER LIZETTE JUSTICE, PATIENT CALLED AND WAS SEEN VOMITING. LIZETTE JUSTICE IMMEDIATELY INFORMED THIS NURSE. UPON ENTERING THE ROOM, THIS NURSE SAW LARGE AMOUNT OF BLOOD AND SOME CLOTS AROUND THE PATIENT'S MOUTH, CHEST AREA, AND ON THE BLANKET. VITALS SIGNS WERE CHECKED PRE AND POST VOMITING. VITAL SIGNS ARE STABLE. PATIENT CLEANED AND LINENS CHANGED. SPOKE TO DR. LOWE AT THIS TIME ABOUT THE PATIENTS VOMITING. NEW ORDERS RECEIVED TO DC ASPIRIN, GIVE PROTONIX IV NOW AND BID. ALSO TO CHECK LABS IN THE MORNING.
[2019-05-25] MEDS ORDERED: PANTOPRAZOLE 40 MG 10ML VIAL IV STA (23:46)
[2019-05-26] MEDS: ONDANSETRON HCL INJ 2MG/ML 2ML 2 MG/ML VIAL IV PRN ×6 (00:12→23:45)
[2019-05-26] MEDS ORDERED: XALATAN2.5 ML OU (02:29)
[2019-05-26] MEDS ORDERED: EFFIENT10 MG PO (02:29)
[2019-05-26] MEDS ORDERED: PRAVASTATIN SOD20 MG PO (02:29)
[2019-05-26] MEDS ORDERED: DILTIAZEM 24HR120 M1 PO ×2 (02:29→13:39)
[2019-05-26] MEDS ORDERED: COSOPT EYE DROP10 ML OD (02:29)
[2019-05-26 03:17] LABS: CREATINE KINASE MB 1.5 ng/mL (0-5.0)
[2019-05-26 03:32] LABS: BASOPHILS % 0.3 % (0.0-1.0); EOSINOPHILS % 0.1 % (0.0-6.0); HEMATOCRIT 24.8 % (38.2-49.6); HEMOGLOBIN 8.4 g/dL (14.0-18.0); LYMPHOCYTES # (AUTO) 1.8 (1.0-3.2); LYMPHOCYTES % 18.8 % (18.0-39.1); MEAN CORPUSCULAR HEMOGLOBIN 33.2 pg (28-32); MEAN CORPUSCULAR HGB CONC 33.9 g/dL (31-35); MONOCYTES # (AUTO) 0.8 (0.2-0.8); MONOCYTES % 8.4 % (4.4-11.3); NEUTROPHILS # (AUTO) 6.8 (2.1-6.9); NEUTROPHILS % 70.9 % (38.7-80.0); PLATELET COUNT 238 x10e3/uL (140-360); RED BLOOD COUNT 2.53 x10e6/uL (4.3-5.7); RED CELL DISTRIBUTION WIDTH 13.7 % (11.7-14.4)
[2019-05-26 03:42] LABS: ANION GAP 14.3 mmol/L (8-16); BLOOD UREA NITROGEN 74 mg/dL (7-26); BUN/CREATININE RATIO 116 (6-25); CARBON DIOXIDE 22 mmol/L (22-29); CHLORIDE 106 mmol/L (98-107); CREATININE, SERUM 0.64 mg/dL (0.72-1.25); EST GLOMERULAR FILTRATION RATE > 60 ML/MIN (60-); GLUCOSE 127 mg/dL (74-118); POTASSIUM 4.3 mmol/L (3.5-5.1); SODIUM 138 mmol/L (136-145)
[2019-05-26 04:00] VITALS: BP 114/67
[2019-05-26] MEDS: HYDROCODONE/APAP 5MG-325MG TAB PO PRN ×2 (05:08→17:08)
[2019-05-26] MEDS: PANTOPRAZOLE 40 MG 10ML VIAL IV SCH ×2 (08:28→17:08)
[2019-05-26 08:34] VITALS: BP 114/69
[2019-05-26 08:38] VITALS: BP 114/69
--- NOTE | 2019-05-26 08:40 | NUR ---
PT LYING IN BED, NO ACTIVE VOMITING OR NAUSEA AT THIS TIME, SPOKE WITH MD LOWE, OKAY TO GIVE PT WATER, FIGURE CLERK TELEPHONED MD OVALLE FOR CLARIFICATION OF HEART CATH OR NOT PER MD LOWE ORDER, AWAITING CALL BACK
[2019-05-26] MEDS ORDERED: HYDROXYCHLOROQ200 MG PO (08:53)
[2019-05-26] MEDS ORDERED: ASPIR 8181 MG PO (08:53)
[2019-05-26] MEDS ORDERED: CENTRUM CARDIO PO (08:53)
[2019-05-26] MEDS ORDERED: VITAMIN D1000 UNI1 PO (08:53)
[2019-05-26] MEDS ORDERED: COQ-1030 MG PO (08:53)
[2019-05-26] MEDS ORDERED: CALTRATE 600 W1 EACH PO (08:53)
[2019-05-26] MEDS ORDERED: FENOFIBRATE145 MG PO (08:53)
[2019-05-26] MEDS ORDERED: ZETIA10 MG PO (08:53)
[2019-05-26] MEDS ORDERED: VITAMIN C500 M2 PO (08:53)
[2019-05-26] MEDS ORDERED: FUROSEMIDE20 MG PO (08:53)
[2019-05-26] MEDS ORDERED: ASPIRIN 325 MG TAB EC PO SCH ×2 (09:00)
--- NOTE | 2019-05-26 09:35 | NUR ---
PT C/O DIZZINESS JUST LYING IN BED, VITAL SIGNS RECHECKED, WNL, PT EDUCATED TO NOT GET OOB WITHOUT CALLING FOR ASSISTANCE, PT VERBALIZED UNDERSTANDING, CALL LIGHT WITHIN REACH, NURSE SPOKE WITH MD OVALLE, MADE AWARE OF CP DIAGNOSIS AND COUGHING UP BLOOD AND CLOTS, DIZZINESS, STATES WILL ROUND ON HIM LATER TODAY, AND OKAY FOR CLEAR LIQUID DIET
--- NOTE | 2019-05-26 10:48 | NUR ---
MD LOWE INTO SEE PT, DISCUSSED POC, TELEPHONED MD Shannan CAAL PER ORDER, SPOKE WITH [place], AWAITING CALL BACK
[2019-05-26 11:16] VITALS: BP 128/74
[2019-05-26 11:21] LABS: CREATINE KINASE MB 2.3 ng/mL (0-5.0)
[2019-05-26] MEDS: MORPHINE SULFATE 2 MG/ML SYR 1ML IV PRN ×4 (11:30→23:45)
[2019-05-26] MEDS ORDERED: NICOTINE 14 MG/EA PATCH TOP SCH (11:30)
--- NOTE | 2019-05-26 11:42 | NUR ---
PT HAS LOOSE BLACK STOOL, MEDICATED PER MD ORDER FOR LOW ABD AND HEADACHE 04/03, EDUCATED TO NOT GET OOB WITHOUT CALLING FOR ASSISTANCE, PT VERBALIZED UNDERSTANDING , BED ALARM ON
--- NOTE | 2019-05-26 12:32 | History and Physical ---
CHIEF COMPLAINT: Shortness of breath and chest discomfort. HISTORY OF PRESENT ILLNESS: This 64-year-old white man who presents to [facility] with worsening shortness of breath as well as mid- epigastric pain as well as chest discomfort. The patient also complained of nausea and clamminess. The patient was very concerned because he has history of coronary stent placement in 2016. In the emergency room, the patient underwent a 12-lead EKG, which did not reveal any acute ischemic findings. The patient had two sets of cardiac enzymes drawn which were negative; however, on admission, the patient was found to have hemoglobin of 11.1 g/dL. Repeat hemoglobin today is 8.4 g/dL. Early this morning the patient vomited bright red blood with visible clots. The patient's BUN and creatinine today are 74 and 0.64 respectively. The patient's initial troponin I is 0.044 and a second troponin is 0.143. The patient denies any chest pain at this time, but states that he does have some shortness of breath. A chest x-ray done in the emergency room was unremarkable. This gentleman has a history of chronic hepatitis C infection, but states he was fully treated with antihepatitis C regimen. The patient states many years ago he was diagnosed with endoscopically proven gastric ulcer. The patient states that he has been taking Effient and aspirin at home since he has history of coronary disease, but he has also been taking [place] on a daily basis for the past month. REVIEW OF SYSTEMS: GENERAL: Weight has been stable. No fever or chills. HEENT: No headaches. No vision changes. CARDIOVASCULAR/RESPIRATORY: Chest discomfort yesterday accompanied with shortness of breath all day. He also complained of clamminess and nausea. GASTROINTESTINAL: The patient had nausea with chest discomfort and shortness of breath yesterday, but today he vomited bright red blood with visible clots. GENITOURINARY: No UTI or BPH symptoms. NEUROMUSCULAR: No limb weakness noted, but does complain of excessive bruising in his bilateral arms and legs. ALLERGIES: NO KNOWN DRUG ALLERGIES. MEDICATIONS: 1. Vitamin C 500 mg daily. 2. Aspirin 81 mg daily. 3. Calcium carbonate and vitamin D once daily. 4. Vitamin D3 2000 units daily. 5. Diltiazem 120 mg t.i.d. 6. Dorzolamide/timolol eyedrops one drop to right eye twice a day. 7. Ezetimibe 10 mg daily. 8. Fenofibrate 148 mg at bedtime. 9. Furosemide 20 mg b.i.d. 10. Plaquenil 200 mg b.i.d. 11. Latanoprost eye drops one drop to both eyes every night. 12. Effient 10 mg daily. 13. Pravastatin 20 mg daily. 14. Coenzyme Q10 300 mg daily. 15. Centrum Silver once daily. PAST MEDICAL HISTORY: 1. Coronary artery disease (coronary artery stent placement in 2015). 2. Chronic hepatitis C infection (the patient states he was fully treated with antihepatitis C regimen a few years ago.). 3. History of endoscopically proven gastric ulcer. 4. Chronic alcohol use. 5. Tobacco abuse. 6. Pulmonary fibrosis. 7. Hypertensive heart disease. 8. Hyperlipidemia. 9. Hypertriglyceridemia. 10. Glaucoma. 11. Rheumatoid arthritis. PAST SURGICAL HISTORY: 1. Coronary artery stent placement in 2015. 2. Cholecystectomy. 3. Laparoscopic hiatal hernia repair. 4. Left inguinal hernia repair. 5. Cervical spine fusion. SOCIAL HISTORY: He is . He lives with his . He is retired. He does smoke tobacco, but currently he is wearing nicotine patches because he wishes to stop smoking. He does drink alcohol in form of beer 3 or 4 nights a week. FAMILY HISTORY: Mother of coronary artery disease. Father of gastric cancer. PHYSICAL EXAMINATION: GENERAL: He is awake, alert, and fluent. His is at bedside. VITAL SIGNS: Blood pressure is 110/70, pulse is 96, respiratory rate 18, oxygen saturation 100% on room air, temperature 97.6, height 5 feet 9 inches, weight 150 pounds, and BMI 25. INTEGUMENT: Skin is warm and dry. The patient has slight pallor. The patient has significant amount of ecchymoses on the dorsal aspect of bilateral forearms as well as lateral aspect of his bilateral lower legs. SKIN: Warm and dry though. No diaphoresis or jaundice appreciated. HEENT: Anterior sclerae. Moist mucous membranes. The patient has palpable conjunctivae. The patient seems to have slight elizalde facies. NECK: Supple. CARDIOVASCULAR: Distant heart sounds. Regular rate and rhythm. LUNGS: The patient has coarse bronchial breath sounds at the bases. No rales, rhonchi, or wheezes appreciated. He does have prolonged expiratory phase. ABDOMEN: Benign. EXTREMITIES: No edema or deformity. NEUROLOGIC: Intact. DIAGNOSES: 1. Angina. 2. Coronary artery disease (history of coronary artery stent placement in 2016). 3. Upper gastrointestinal bleeding likely secondary to NSAID induced ulcer. 4. Chronic alcohol use. 5. Remote history of endoscopically proven gastric ulcer. 6. Possible liver cirrhosis. 7. Tobacco abuse. PLAN: 1. Stop aspirin and Effient. 2. Recommended the patient to avoid all NSAIDs. 3. Asked the patient to stop [place]. 4. Highly recommend alcohol abstinence. 5. Commend the patient for his willing to stop smoking tobacco. 6. We will consult Gastroenterology. 7. We will follow up cardiac enzymes. 8. Consult Cardiology. 9. We will follow hemoglobin and hematocrit closely. Spent 1 hour in the care of this patient. MD MONICA Ordonez/DANIEL /[id number] MTDD
[2019-05-26] MEDS ORDERED: NICOTINE 7 MG PATCH ONE (13:27)
[2019-05-26] MEDS ORDERED: SODIUM CHLORIDE 0.9% IV ONE (14:00)
[2019-05-26] MEDS ORDERED: OCTREOTIDE ACETATE IV ONE (14:00)
[2019-05-26 15:33] VITALS: BP 146/79
[2019-05-26] MEDS: DILTIAZEM HCL ER 120 MG CAP PO SCH ×2 (15:46→21:52)
[2019-05-26] MEDS: OCTREOTIDE ACETATE 500 MCG in SODIUM CHLORIDE 0.9% 250ML 249 ML IV SCH ×2 (16:34→19:30)
--- NOTE | 2019-05-26 16:49 | NUR ---
STANDBY ASSIST AT SIDE OF BED BY FOR USE OF URINAL, PT REPORTS SOME DIZZINESS AFTER STANDING "TOO LONG", "SINCE MONDAY", NEW IV TO LEFT FA BY CHARGE NURSE, PT TOLERATED WELL, SANDOSTATIN INFUSING PER MD ORDER
--- NOTE | 2019-05-26 16:54 | Consultation ---
DATE OF CONSULTATION: 05/26/2019 Cardiology Consultation REASON FOR CONSULTATION: Shortness of breath, chest pain. HISTORY OF PRESENT ILLNESS: This is a 64-year-old man with a history of coronary artery disease, status post percutaneous coronary intervention, carotid artery disease, chronic daily angina, hypertension, hyperlipidemia, chronic migraine headaches, and prior hepatitis C. The patient presented with progressively worsening shortness of breath, [id number] in intensity, no associated chest pain, associated with some lightheadedness, dizziness. No other exacerbating or relieving factors. He was found to have hematemesis and melena today. His hemoglobin dropped from 11.1 to 8.4. Currently, he denies any chest pain or shortness of breath that is ongoing. REVIEW OF SYSTEMS: A 12-point review of system was conducted, is negative except as stated above in the HPI. PAST MEDICAL HISTORY: As stated above in the HPI. PAST SURGICAL HISTORY: Percutaneous coronary intervention. FAMILY HISTORY: Noncontributory. SOCIAL HISTORY: Occasional alcohol use. ALLERGIES: NO KNOWN DRUG ALLERGIES. MEDICATIONS: See medications reconciliation form. PHYSICAL EXAMINATION: VITAL SIGNS: Temperature is 98.7, heart rate is 96, respirations are 17, blood pressure is 128/74, oxygen saturation is 100% on 2 L nasal cannula. GENERAL: Well appearing, well built, no apparent distress. Alert and oriented x3. HEENT: Head is normocephalic, atraumatic. Eyes, extraocular muscles are intact. Conjunctivae clear. NECK: No JVD. No bruits. CARDIOVASCULAR: Regular rate and rhythm. No murmurs. LUNGS: Clear to auscultation. ABDOMEN: Soft, nontender, nondistended. EXTREMITIES: No edema. SKIN: Multiple ecchymoses, upper extremities. NEUROLOGIC: No focal deficits noted. LABORATORY DATA: Reviewed. Hemoglobin 8.4, platelets 238. Serial troponins negative x3. INR is 0.92. Chest x-ray shows no acute cardiopulmonary abnormality. TELEMETRY: Monitoring revealed normal sinus rhythm. IMPRESSION: 1. Gastrointestinal bleed. 2. History of hepatitis C. 3. Shortness of breath. 4. Coronary artery disease, status post percutaneous coronary intervention. 5. Hypertension. 6. Hyperlipidemia. 7. Chronic angina. RECOMMENDATIONS: The patient is ruled out for acute myocardial infarction with 3 sets of negative cardiac enzymes. Reasonable to discontinue all antiplatelets given significant GI bleeding. Gastroenterology has been consulted. Continue proton pump inhibitor. The patient may proceed with endoscopy if required. We will continue to follow along with you. DO ESTEBAN Cole/DANIEL /[id number]
[2019-05-26 17:05] LABS: BASOPHILS % 0.2 % (0.0-1.0); HEMOGLOBIN 8.1 g/dL (14.0-18.0); LYMPHOCYTES # (AUTO) 2.1 (1.0-3.2); LYMPHOCYTES % 15.9 % (18.0-39.1); MEAN CORPUSCULAR HEMOGLOBIN 33.1 pg (28-32); MEAN CORPUSCULAR HGB CONC 32.4 g/dL (31-35); MONOCYTES % 7.5 % (4.4-11.3); NEUTROPHILS # (AUTO) 9.9 (2.1-6.9); NEUTROPHILS % 75.3 % (38.7-80.0); PLATELET COUNT 247 x10e3/uL (140-360); RED BLOOD COUNT 2.45 x10e6/uL (4.3-5.7); RED CELL DISTRIBUTION WIDTH 13.8 % (11.7-14.4)
--- NOTE | 2019-05-26 20:46 | NUR ---
SPOKE TO DR. Shannan CAAL AT THIS TIME. SAID OK TO HAVE ICE CHIPS
[2019-05-26 21:28] VITALS: BP_SYST 109; BP_SYST 140; BP_DIAS 70; BP_DIAS 72
[2019-05-27] VITALS (8 sets, daily range): BP systolic 95–143; BP diastolic 56–71
[2019-05-27] MEDS: HYDROCODONE/APAP 5MG-325MG TAB PO PRN ×2 (01:03→07:35)
[2019-05-27] MEDS: OCTREOTIDE ACETATE 500 MCG in SODIUM CHLORIDE 0.9% 250ML 249 ML IV SCH ×2 (01:10→14:02)
[2019-05-27] MEDS: SODIUM CHLORIDE 0.9% 1000ML 1,000 ML IV SCH ×3 (03:11→14:02)
[2019-05-27] MEDS: MORPHINE SULFATE 2 MG/ML SYR 1ML IV PRN ×3 (05:21→19:57)
[2019-05-27 05:33] LABS: BASOPHILS % 0.2 % (0.0-1.0); EOSINOPHILS # (AUTO) 0.1 (0.0-0.4); EOSINOPHILS % 0.4 % (0.0-6.0); HEMATOCRIT 19.6 % (38.2-49.6); LYMPHOCYTES # (AUTO) 2.5 (1.0-3.2); LYMPHOCYTES % 21.6 % (18.0-39.1); MEAN CORPUSCULAR HEMOGLOBIN 34.2 pg (28-32); MEAN CORPUSCULAR HGB CONC 33.7 g/dL (31-35); MEAN CORPUSCULAR VOLUME 101.6 fL (81-99); MONOCYTES % 8.4 % (4.4-11.3); NEUTROPHILS # (AUTO) 7.7 (2.1-6.9); NEUTROPHILS % 68.1 % (38.7-80.0); PLATELET COUNT 218 x10e3/uL (140-360); RED BLOOD COUNT 1.93 x10e6/uL (4.3-5.7); RED CELL DISTRIBUTION WIDTH 14.3 % (11.7-14.4)
[2019-05-27 05:43] LABS: HEMOGLOBIN 6.6 g/dL (14.0-18.0)
--- NOTE | 2019-05-27 05:49 | NUR ---
PAGED DR. LOWE REGARDING PATIENT HGB AND HCT. AWAITING CALL BACK
[2019-05-27 05:55] LABS: ALANINE AMINOTRANSFERASE 28 IU/L (0-55); ALBUMIN 2.7 g/dL (3.5-5.0); ALBUMIN/GLOBULIN RATIO 1.3 (0.8-2.0); ALKALINE PHOSPHATASE 54 IU/L (40-150); ANION GAP 11.2 mmol/L (8-16); BLOOD UREA NITROGEN 39 mg/dL (7-26); BUN/CREATININE RATIO 49 (6-25); CALCIUM 8.5 mg/dL (8.4-10.2); CARBON DIOXIDE 24 mmol/L (22-29); CHLORIDE 108 mmol/L (98-107); EST GLOMERULAR FILTRATION RATE > 60 ML/MIN (60-); GLUCOSE 126 mg/dL (74-118); POTASSIUM 5.2 mmol/L (3.5-5.1); SODIUM 138 mmol/L (136-145)
--- NOTE | 2019-05-27 06:55 | NUR ---
SPOKE TO DR. LOWE AT THIS TIME REGARDING HGB AND HCT. MD ORDERED TO TRANSFUSE 2 UNITS OF BLOOD.
[2019-05-27] MEDS ORDERED: SODIUM CHLORIDE 0.9% 250ML 250 ML IV ONE (07:00)
[2019-05-27] MEDS: DILTIAZEM HCL ER 120 MG CAP PO SCH ×2 (07:59→21:00)
[2019-05-27] MEDS: PANTOPRAZOLE 40 MG 10ML VIAL IV SCH ×2 (08:49→15:31)
[2019-05-27] MEDS: NICOTINE 7 MG PATCH TOP SCH (08:49)
[2019-05-27] MEDS ORDERED: NICOTINE 14 MG/EA PATCH TOP SCH (09:00)
--- NOTE | 2019-05-27 09:54 | NUR ---
blood units ready anesthesiologist spoke with pt and nurse. agreed to transfuse blood in preop spoke with md porter regarding count prior to taking pt. md porter aware of pending transfusion egd and blood transfusion consent complete taking pt via bed at this time
[2019-05-27 12:25] LABS: HEMATOCRIT 24.5 % (38.2-49.6); HEMOGLOBIN 8.4 g/dL (14.0-18.0)
--- NOTE | 2019-05-27 12:52 | Operative Report ---
DATE OF PROCEDURE: 05/27/2019 SURGEON: Richard Parker MD PROCEDURE: Esophagogastroduodenoscopy. ADDITIONAL REFERRING PHYSICIAN: Arturo Salcido D.O. INDICATIONS FOR EGD: History of hematemesis, melena. MEDICATIONS: The patient was done under MAC, please see anesthesiologist's note. PROCEDURE IN DETAIL: With the patient in left lateral decubitus position, a flexible fiberoptic Olympus gastroscope was introduced into the esophagus under direct visualization without any difficulty. The esophagus overall appeared to be within normal limits. There was a short semi-circumferential tongue of Matson's epithelium extending proximally from the GE junction. Biopsies were not obtained. An approximately 6 mm ulcer was noted at the GE junction without active bleeding or stigmata of recent hemorrhage. The scope was then advanced with ease into the stomach traversing a small hiatal hernia. The mucosa overlying the antrum and the body revealed some patchy intense erythema and moderate edema and biopsies were obtained and sent to stain for H pylori. The pylorus was of normal contour and shape, was intubated with ease and the scope was advanced all the way to the second portion of the duodenum. The scope was then withdrawn slowly mucosa overlying the second portion and duodenal bulb appeared to be within normal limits. The scope was then withdrawn back into the stomach and retroflexed and there was evidence of fundoplication. The fundus overall appeared to be within normal limits. The scope was then straightened out, it was subsequently withdrawn. The patient tolerated the procedure well. IMPRESSION: 1. Matson esophagus. 2. Approximately 6 mm ulcer in the GE junction without active bleeding or stigmata of recent hemorrhage. 3. Small hiatal hernia. 4. Kavin fundoplication. 5. Gastritis, biopsied, biopsies sent to stain for H pylori. PLAN: Follow up histology. Follow H and H. Continue current therapy. Initiate full liquid diet. MD ARY Pierce/MODL /[id number] cc: MD Arturo Ordonez DO Steven A Fein, MD
[2019-05-27] MEDS ORDERED: DEXAMETHASONE SOD PHOS INJ 4 MG/ML VIAL ONE (17:44)
[2019-05-27] MEDS ORDERED: PROPOFOL IV EMULSION 10 MG/ML 20 ML VIAL ONE (17:44)
[2019-05-27] MEDS ORDERED: LIDOCAINE HCL 2% LOCAL INJ 5 ML SDV VIAL INJ ONE (17:44)
[2019-05-27] MEDS ORDERED: DIPHENHYDRAMINE HCL INJ 50 MG/ML VIAL ONE (17:44)
[2019-05-27] MEDS ORDERED: MIDAZOLAM HCL 2 MG/2 ML VIAL ONE (18:20)
[2019-05-27] MEDS ORDERED: FENTANYL CITRATE/PF 100MCG/2 ML INJ ONE (18:20)
--- NOTE | 2019-05-27 19:14 | NUR ---
Bed side Shift Report taken from morning Sherri in the bed.stable condition.
[2019-05-27] MEDS: ONDANSETRON HCL INJ 2MG/ML 2ML 2 MG/ML VIAL IV PRN (19:57)
[2019-05-28] MEDS: HYDROCODONE/APAP 5MG-325MG TAB PO PRN ×2 (00:06→07:57)
--- NOTE | 2019-05-28 00:20 | NUR ---
BP CHECKED MANUALLY AND NOTED 110/62 MMOF HG.NO RESP.DISTRESS.PAIN MEDICATION GIVEN.BED LOCKED AND IN LOWEST POSITION.PHONE AND CALL LIGHT WITHIN REACH.INSTRUCTED TO CALL FOR ASSISTANCE NEEDED.
[2019-05-28 00:37] VITALS: BP 98/57
[2019-05-28] MEDS: SODIUM CHLORIDE 0.9% 1000ML 1,000 ML IV SCH ×2 (01:34→09:41)
[2019-05-28] MEDS: OCTREOTIDE ACETATE 500 MCG in SODIUM CHLORIDE 0.9% 250ML 249 ML IV SCH ×2 (01:34→10:53)
[2019-05-28] MEDS: ONDANSETRON HCL INJ 2MG/ML 2ML 2 MG/ML VIAL IV PRN (04:53)
[2019-05-28] MEDS: MORPHINE SULFATE 2 MG/ML SYR 1ML IV PRN ×2 (04:53→09:43)
--- NOTE | 2019-05-28 04:54 | NUR ---
Bp checked and noted 120/67.abd.pain voiced 04/03.medicated with morphine 2mg iv.
[2019-05-28 05:25] LABS: HEMATOCRIT 24.8 % (38.2-49.6); HEMOGLOBIN 8.4 g/dL (14.0-18.0); LYMPHOCYTES # (AUTO) 0.6 (1.0-3.2); LYMPHOCYTES % 7.9 % (18.0-39.1); MEAN CORPUSCULAR HEMOGLOBIN 32.2 pg (28-32); MEAN CORPUSCULAR HGB CONC 33.9 g/dL (31-35); MONOCYTES # (AUTO) 0.4 (0.2-0.8); MONOCYTES % 4.7 % (4.4-11.3); NEUTROPHILS # (AUTO) 6.8 (2.1-6.9); NEUTROPHILS % 85.9 % (38.7-80.0); PLATELET COUNT 172 x10e3/uL (140-360); RED BLOOD COUNT 2.61 x10e6/uL (4.3-5.7)
[2019-05-28 05:32] LABS: RED CELL DISTRIBUTION WIDTH 17.7 % (11.7-14.4)
[2019-05-28 05:49] LABS: ALANINE AMINOTRANSFERASE 21 IU/L (0-55); ALBUMIN 2.6 g/dL (3.5-5.0); ALBUMIN/GLOBULIN RATIO 1.3 (0.8-2.0); ALKALINE PHOSPHATASE 49 IU/L (40-150); ANION GAP 9.9 mmol/L (8-16); BLOOD UREA NITROGEN 11 mg/dL (7-26); BUN/CREATININE RATIO 18 (6-25); CALCIUM 8.2 mg/dL (8.4-10.2); CARBON DIOXIDE 23 mmol/L (22-29); CHLORIDE 111 mmol/L (98-107); CREATININE, SERUM 0.62 mg/dL (0.72-1.25); EST GLOMERULAR FILTRATION RATE > 60 ML/MIN (60-); GLUCOSE 142 mg/dL (74-118); POTASSIUM 4.9 mmol/L (3.5-5.1); SODIUM 139 mmol/L (136-145)
--- NOTE | 2019-05-28 07:00 | NUR ---
BED SIDE SHIFT REPORT GIVEN TO THE ONCOMING RN.STABLE CONDITION
[2019-05-28 07:29] VITALS: BP 135/71
[2019-05-28] MEDS: PANTOPRAZOLE 40 MG 10ML VIAL IV SCH (07:57)
[2019-05-28] MEDS: NICOTINE 7 MG PATCH TOP SCH (07:57)
[2019-05-28] MEDS: DILTIAZEM HCL ER 120 MG CAP PO SCH (07:57)
[2019-05-28 07:58] VITALS: BP 135/71
[2019-05-28] MEDS ORDERED: PANTOPRAZOLE SO40 MG PO (11:24)
--- NOTE | 2019-05-28 11:27 | Discharge Summary ---
ADMITTING DIAGNOSES: 1. Angina. 2. Coronary artery disease (history of coronary stent placement in 2016). 3. Chronic alcohol use. 4. Tobacco abuse. 5. Remote history of endoscopically proven gastric ulcer. 6. Possible liver cirrhosis. DISCHARGE DIAGNOSES: 1. Angina, resolved. 2. Coronary artery disease (history of coronary stent placed in 2016). 3. Upper gastrointestinal bleeding secondary to NSAID-induced ulcer. 4. Status post EGD. 5. Endoscopically proven gastroesophageal junction 6 mm ulcer. 6. Tobacco abuse. 7. Chronic alcohol use. 8. Status post blood transfusion (2 units of packed red blood cells). HISTORY OF PRESENT ILLNESS: This is a 64-year-old white man, who was initially admitted to [facility] with diagnosis of angina. This gentleman has known history of coronary artery disease and in fact he underwent coronary artery stent placement in 2016. Soon after admission, the patient was found to have upper gastrointestinal bleeding. He does have a remote history of endoscopically proven gastric ulcer. During this hospitalization, he was transfused 2 units of packed red blood cells because his hemoglobin did get as low as 6.6 g/dL. Subsequent to the blood transfusion, his hemoglobin level remained stable. In fact, on day of discharge, it was 8.4 g/dL. During this hospitalization, he underwent EGD, which did confirm a 6 mm ulcer in the gastroesophageal junction. The biochemistry specialist stated that he did not appreciate any active bleeding or stigmata of recent hemorrhage though. The patient's gastric mucosa was also biopsied. The patient was also found to have a Matson esophagus on the EGD. During this hospitalization, the patient was found to have albumin level of 2.6 which is low. The patient's prothrombin time and INR level were within normal limits. CONDITION ON DISCHARGE: Stable. DISCHARGE MEDICATIONS: 1. Protonix 40 mg p.o. b.i.d. for eight weeks. 2. Vitamin C 500 mg daily. 3. Calcium carbonate with vitamin D once daily. 4. Vitamin D 2000 units daily. 5. Diltiazem 120 mg t.i.d. 6. Dorzolamide/timolol eye drops, one drop to right eye twice daily. 7. Ezetimibe 10 mg daily. 8. Fenofibrate 148 mg at bedtime. 9. Furosemide 20 mg b.i.d. 10. Plaquenil 200 mg b.i.d. 11. Latanoprost eye drops, one drop to each eye every night. 12. Pravastatin 20 mg at bedtime. 13. Coenzyme Q10 300 mg daily. 14. Centrum Silver once daily. The patient was instructed to stop aspirin and Effient for at least eight weeks. FOLLOWUP INSTRUCTIONS: 1. The patient to follow up with Dr. Arturo Salcido, his primary care physician within 1 to [address] Al Salcido, his occasional caregiver within 2 to 3 weeks. 3. Alcohol abstinence was highly recommended to the patient. 4. The patient was instructed to avoid all NSAIDs including aspirin. The patient apparently was taking Corina-Clifton every night and he was instructed to stop this [id number]-[id number] medication also. 5. The patient was told that he can safely take [id number] acetaminophen for any aches or pains. MD MONICA Ordonez/DANIEL /[id number] cc: DO Richard Rob MD Benjamin Metz, DO
[2019-05-28 11:33] VITALS: BP 108/66
--- NOTE | 2019-05-28 11:41 | NUR ---
DISCHARGE INSTRUCTIONS AND PRESCRIPTIONS GIVEN PT VERBALIZED UNDERSTANDING IV DC PRESSURE DRESSING APPLIED AND TAPED PT IS GOING TO EAT LUNCH, DRESS AND GO HOME INSTRUCTED TO CALL LIGHT WHEN READY TO BE WHEEL CHAIRED OUT THE DOOR
--- NOTE | 2019-05-28 12:24 | NUR ---
PT OFF UNIT TO HOME AT THIS TIME
== END 2019-05-28 12:10 | disposition home or self-care (01) | DRG 302 ==
LOC: ER 17:15 → ERHOLD 20:54 → MED/SURG 21:01
PROVIDERS: ADMIT Internal Medicine; ATTEND Internal Medicine
PROC: 30233N1 Transfusion of Nonautologous Red Blood Cells into Peripheral Vein, Percutaneous Approach (ICD-10-PCS; 2019-05-27)
PROC: 0DB68ZX Excision of Stomach, Via Natural or Artificial Opening Endoscopic, Diagnostic (ICD-10-PCS; principal; 2019-05-27 11:27)
DX: I25.119 Atherosclerotic heart disease of native coronary artery with unspecified angina pectoris (principal); K25.4 Chronic or unspecified gastric ulcer with hemorrhage; D62 Acute posthemorrhagic anemia; R06.00 Dyspnea, unspecified; R41.82 Altered mental status, unspecified; K21.9 Gastro-esophageal reflux disease without esophagitis; E78.5 Hyperlipidemia, unspecified; Z90.49 Acquired absence of other specified parts of digestive tract; Z95.5 Presence of coronary angioplasty implant and graft; Z86.19 Personal history of other infectious and parasitic diseases; Z82.49 Family history of ischemic heart disease and other diseases of the circulatory system; Z80.0 Family history of malignant neoplasm of digestive organs; I11.9 Hypertensive heart disease without heart failure; F10.10 Alcohol abuse, uncomplicated; Z72.0 Tobacco use; K74.60 Unspecified cirrhosis of liver; K22.70 Barrett's esophagus without dysplasia; K44.9 Diaphragmatic hernia without obstruction or gangrene; K29.70 Gastritis, unspecified, without bleeding
CPT/HCPCS: 36415; 43239; 71045; 80048; 80053; 82550; 82553; 83690; 83880; 84484; 85014; 85018; 85025; 85610; 86850; 86900; 86920; 88305; 88312; 93005; 99285; J1100; J1200; J2001; J2250; J2270; J2353; J2354; J2405; J3010; J7030; J7050; P9016

== ENCOUNTER 2019-08-09 21:57 | Observation (INO) | payer MEDICARE, OTHER ==
[~2019-08-09] VITALS: Ht 175.3 cm; Wt 78.0 kg
[~2019-08-09 21:57] MED LIST changes: +ASPIR 8181 MG PO; +CALTRATE 600 W1 EACH PO; +CENTRUM CARDIO PO; +COQ-1030 MG PO; +COSOPT EYE DROP10 ML OD; +DILTIAZEM 24HR120 M1 PO; +EFFIENT10 MG PO; +FUROSEMIDE20 MG PO; +PANTOPRAZOLE SO40 MG PO; +PRAVASTATIN SOD20 MG PO; +VITAMIN C500 M2 PO; +VITAMIN D1000 UNI1 PO; +XALATAN2.5 ML OU
[2019-08-09] MEDS ORDERED: ASPIRIN 81 MG CHEW TAB PO ONE (22:15)
[2019-08-09] MEDS ORDERED: MORPHINE SULFATE 2 MG/ML SYR 1ML IV STA (22:25)
[2019-08-09] MEDS ORDERED: ONDANSETRON HCL INJ 2MG/ML 2ML 2 MG/ML VIAL IV STA (22:25)
[2019-08-09 22:35] LABS: BASOPHILS # (AUTO) 0.1 (0.0-0.1); BASOPHILS % 0.7 % (0.0-1.0); EOSINOPHILS # (AUTO) 0.2 (0.0-0.4); EOSINOPHILS % 1.8 % (0.0-6.0); HEMOGLOBIN 12.9 g/dL (14.0-18.0); LYMPHOCYTES % 19.1 % (18.0-39.1); MEAN CORPUSCULAR HEMOGLOBIN 25.9 pg (28-32); MEAN CORPUSCULAR HGB CONC 31.5 g/dL (31-35); MEAN CORPUSCULAR VOLUME 82.3 fL (81-99); MONOCYTES % 9.8 % (4.4-11.3); NEUTROPHILS % 68.2 % (38.7-80.0); PLATELET COUNT 433 x10e3/uL (140-360); RED BLOOD COUNT 4.98 x10e6/uL (4.3-5.7); RED CELL DISTRIBUTION WIDTH 16.1 % (11.7-14.4)
[2019-08-09 22:44] LABS: INR 0.91; PROTHROMBIN TIME 12.7 seconds (11.9-14.5)
[2019-08-09 22:45] LABS: PARTIAL THROMBOPLASTIN TIME 25.3 seconds (23.8-35.5)
[2019-08-09 22:45] LABS: BILIRUBIN,URINE NEGATIVE (NEGATIVE); CLARITY,URINE CLEAR (CLEAR); COLOR,URINE YELLOW (YELLOW); KETONES,URINE NEGATIVE (NEGATIVE); LEUKOCYTE ESTERASE ,URINE NEGATIVE (NEGATIVE); NITRITE,URINE NEGATIVE (NEGATIVE); PROTEIN,URINE DIPSTICK NEGATIVE (NEGATIVE); URINE UROBILINOGEN 0.2 mg/dL (0.2 - 1)
[2019-08-09 22:49] LABS: ALANINE AMINOTRANSFERASE 19 IU/L (0-55); ALBUMIN 4.2 g/dL (3.5-5.0); ALBUMIN/GLOBULIN RATIO 1.2 (0.8-2.0); ALKALINE PHOSPHATASE 95 IU/L (40-150); ANION GAP 15.4 mmol/L (8-16); BLOOD UREA NITROGEN 10 mg/dL (7-26); BUN/CREATININE RATIO 13 (6-25); CALCIUM 9.8 mg/dL (8.4-10.2); CARBON DIOXIDE 25 mmol/L (22-29); CHLORIDE 95 mmol/L (98-107); CREATINE KINASE 62 IU/L (30-200); CREATININE, SERUM 0.76 mg/dL (0.72-1.25); EST GLOMERULAR FILTRATION RATE > 60 ML/MIN (60-); GLUCOSE 95 mg/dL (74-118); POTASSIUM 3.4 mmol/L (3.5-5.1); SODIUM 132 mmol/L (136-145)
[2019-08-09 23:02] LABS: BACTERIA,URINE FEW /HPF; EPITHELIAL CELLS,URINE RARE /LPF; WBC,URINE (MAN) 0-5 /HPF (0-5)
--- NOTE | 2019-08-10 00:14 | Diagnostic Imaging Report ---
EXAMINATION: CHEST 2 VIEWS INDICATION: ^SOB ^[id number] ^0000 ^Y COMPARISON: Chest x-ray 05/25/2019, CT thoracic spine 08/23/2018 FINDINGS: PA and lateral views TUBES and LINES: None. LUNGS: Lungs are well inflated. There is no evidence of pneumonia or pulmonary edema. PLEURA: No pleural effusion or pneumothorax. HEART AND MEDIASTINUM: The cardiomediastinal silhouette is unremarkable.. BONES AND SOFT TISSUES: A fusion plate in the lower cervical spine is stable. Visualized hardware is intact. A T12 compression fracture is present and stable in morphology. No new compression deformities. Soft tissues are unremarkable. UPPER ABDOMEN: No free air under the diaphragm. IMPRESSION: No acute thoracic abnormality. Signed by: Dr. Sonia Dawn MD on 08/10/2019 12:10 AM
--- NOTE | 2019-08-10 00:15 | Diagnostic Imaging Report ---
CT Abdomen And Pelvis with Intravenous Contrast INDICATION: ^LLQ AND RLQ TENDERNESS ^[id number] ^2359 ^Y TECHNIQUE: Thin collimation axial images obtained from the diaphragm to the level of the pubic symphysis following the uneventful administration of 100 cc of low osmolar, nonionic intravenous contrast. Dose reduction techniques used: Automated exposure control, adjustment of the mAs and/or kVp according to patient size, standardized low-dose protocol, and/or iterative reconstruction technique. RADIATION DOSE: Total DLP: 277.3 mGy*cm Estimated effective dose: (DLP x 0.015 x size factor) mSv CTDIvol has been reviewed. It is below the limits set by the Radiation Protocol Committee (RPC). COMPARISON: CT abdomen/pelvis 04/04/2015, CT thoracic and lumbar spine 08/23/2018. ABDOMEN FINDINGS: Lung Bases: Calcified granuloma in the right lower lobe is stable. Visualized portion of the mediastinum demonstrates prominent pericardial fat pads. The heart is normal in size. Liver: Steatosis. No evidence for mass. Gallbladder: Absent. No biliary ductal dilatation. Pancreas: Diffuse fatty atrophy without mass or ductal dilatation. Spleen: Normal in size. No evidence of mass.. Adrenal Glands: No evidence for mass. Kidneys: Right: Normal enhancement. No soft tissue mass. No hydronephrosis. Left: Normal enhancement. No soft tissue mass. No hydronephrosis. Lymph Nodes: Periportal lymph nodes are mildly prominent, measuring up to 8 mm and are stable. No enlarged periaortic lymph nodes. Aorta: Diffusely calcified but not aneurysmally dilated PELVIS FINDINGS: Bowel: Stomach: Postoperative changes from fundoplication. No mural thickening or intraluminal mass. Small Bowel: There are a few fluid and air distended small bowel loops throughout the abdomen without dilatation or mural thickening. No inspissated enteric contents. Large Bowel: Normal and caliber with normal wall thickness. There are a few scattered diverticula in the distal descending/sigmoid colon without associated inflammation. No significant stool burden. Appendix: Normal appendix. Bladder: Underdistended. Peritoneum/retroperitoneum: No free fluid or fluid collection. Bones: Stable L1 compression deformity. No new compression fractures. Mild degenerative changes of the lower lumbar spine. Soft tissues: Stable postoperative changes from left inguinal hernia repair. No new hernias. IMPRESSION: 1. A few fluid and air distended but nondilated small bowel loops may be the result of gastroenteritis. No evidence for bowel obstruction or inflammation. Normal appendix. 2. Steatosis. 3. Postoperative changes as described above. 4. Stable compression fracture of T12. Signed by: Dr. Sonia Dawn MD on 08/10/2019 12:12 AM
[2019-08-10] MEDS: DORZOLAMIDE/TIMOLOL (OPTH SOL) 10 ML DRPETTE OP SCH ×2 (00:44→13:23)
[2019-08-10] MEDS: FUROSEMIDE 20 MG TAB PO SCH ×2 (00:44→13:23)
[2019-08-10] MEDS: HYDROXYCHLOROQUINE SULFATE 200 MG TAB PO SCH ×2 (00:44→13:23)
[2019-08-10] MEDS ORDERED: SODIUM CHLORIDE FLUSH 10 ML SYR INJ PRN (00:45)
[2019-08-10] MEDS ORDERED: MORPHINE SULFATE INJ 4 MG/ML INJ 1ML ONE (01:14)
[2019-08-10] MEDS: MORPHINE SULFATE 2 MG/ML SYR 1ML IV PRN ×5 (01:14→14:06)
[2019-08-10] MEDS: FAMOTIDINE 20 MG/2 ML VIAL IV SCH ×2 (01:14→13:23)
[2019-08-10] MEDS: ONDANSETRON HCL INJ 2MG/ML 2ML 2 MG/ML VIAL IV PRN ×2 (01:15→14:06)
--- NOTE | 2019-08-10 01:25 | NUR ---
REPORT RECEIVED FROM NEGRO JUSTICE IN ER.CONSULT TO DR NEGRETE ALREADY CALLED PER REPORT FROM NEGRO JUSTICE.
[2019-08-10 01:56] VITALS: BP 116/74
[2019-08-10 01:58] VITALS: BP 116/74
[2019-08-10 02:44] VITALS: BP 116/74
[2019-08-10 04:00] VITALS: BP 121/86
[2019-08-10] MEDS ORDERED: SODIUM CHLORIDE 0.9% 50ML 50 ML ONE (05:30)
[2019-08-10] MEDS ORDERED: IOPAMIDOL 370 MG/ML 200 ML INFUS..BTL INJ ONE (05:30)
[2019-08-10 06:56] LABS: CREATINE KINASE 49 IU/L (30-200)
--- NOTE | 2019-08-10 07:00 | NUR ---
RECEIVED PATIENT RESTING IN BED NO SIGNS OF DISTRESS. BED LOW, WHEELS LOCKED, SIDE RAILS X2. CALL LIGHT IN REACH WILL CONTINUE TO MONITOR PATIENT.
--- NOTE | 2019-08-10 07:04 | NUR ---
REPORT GIVEN TO ONCOMING NURSE.WALKING ROUNDS MADE.PT RESTING IN BED WITH NO S/S OF DISTRESS.CALL LIGHT WITHIN EASY REACH.
[2019-08-10 07:34] VITALS: BP 131/72
[2019-08-10 08:03] VITALS: BP 131/72
[2019-08-10] MEDS ORDERED: ASCORBIC ACID 500 MG TAB PO SCH (09:00)
[2019-08-10] MEDS ORDERED: [UNRECOGNIZED DRUG - OTHER] PO SCH (09:00)
[2019-08-10] MEDS ORDERED: PRAVASTATIN 20 MG TAB PO SCH (09:00)
[2019-08-10] MEDS ORDERED: UBIDECARENONE PO SCH ×2 (09:00)
[2019-08-10] MEDS ORDERED: PANTOPRAZOLE SOD 40 MG TABEC PO SCH (09:00)
[2019-08-10] MEDS ORDERED: NON-FORMULARY MEDICATION (Ascorbic Acid (Vitamin C) 500 MG) PO SCH (09:00)
[2019-08-10] MEDS ORDERED: CALCIUM CARBONATE PO SCH (09:00)
[2019-08-10] MEDS ORDERED: OYST-CAL-D 500MG TABLET PO SCH (09:00)
[2019-08-10] MEDS ORDERED: EZETIMIBE 10 MG TAB PO SCH (09:00)
[2019-08-10] MEDS ORDERED: DILTIAZEM HCL ER 120 MG CAP PO SCH ×2 (09:30→19:00)
[2019-08-10] MEDS ORDERED: POTASSIUM CHLORIDE 20 MEQ TAB CR PO SCH (10:30)
--- NOTE | 2019-08-10 12:48 | NUR ---
Nutrition Screen Note RD Recommendation for Physician: Continue diet as ordered Plan of Care: RD following, monitoring for tolerance and adequacy Nutrition reason for involvement: Nutrition Risk Trigger - MST Primary Diagnose(s): Chest pain PMH: CAD, Hepatitis C, Cholecystectomy, hyperlipidemia, pulmonary fibrosis, PUD, HTN, inguinal hernia repair, hiatal hernia repair, GIB, Matson 's esophagus EGD Ht:69 in Wt:172lb BMI:25.4 kg/m2 IBW:lb +/-10% RD Assessment: (08/10/2019) Chart reviewed. Labs and meds reviewed. Initial encounter with patient. Patient states that he eats small more frequent meals throughout the day since he had hernia surgery. Pt denies any difficulty chewing or swallowing, nor has any N,V, D. Pt has no known food allergies. Pt has not had any significant wt changes Current Diet: Cardiac Malnutrition Evaluation (08/10/2019) The patient does not meet criteria for a specified degree of malnutrition at this time. Will re-evaluate at follow-up as appropriate. Diet Education Needs Assessment: Diet education not indicated. Nutrition Care Level: Low Signed: Enrique Allan RD, LD, [facility]
--- NOTE | 2019-08-10 14:05 | NUR ---
REMOVED PATIENTS IV. CATHETER TIP INTACT AND PRESSURE DRESSING APPLIED.
--- NOTE | 2019-08-10 14:24 | NUR ---
PATIENT DISCHARGED FROM FACILITY. PATIENT GATHERED ALL PERSONAL BELONGINGS, DISCHARGE INSTRUCTIONS, AND FOLLOW UP INFORMATION. PATIENT LEFT UNIT IN WHEELCHAIR AND WENT HOME VIA PRIVATE AUTO. NO SIGNS OF DISTRESS WHEN LEAVING FACILITY.
--- NOTE | 2019-08-10 14:53 | Consultation ---
DATE OF CONSULTATION: Cardiology Consultation CONSULTING PHYSICIAN: Dr. Parker. REASON FOR CONSULTATION: Chest pain. HISTORY OF PRESENT ILLNESS: Mr. River is a 64-year-old male with a pertinent past medical history of coronary artery disease, status post PCI in 2016, carotid artery disease, chronic angina, hypertension, hyperlipidemia, chronic migraines, and also prior hepatitis C, who was recently seen here in May and was treated and diagnosed with a bleeding gastric ulcer. He returns at this time with unfamiliar chest pain that happened yesterday while he was in his garage. The chest pain location is reported to be epigastric and radiating to his substernal area and also left-sided. He also had associated symptoms that included lightheadedness and feeling overly weak. At this present time, he reports no chest pain. He reports that this chest pain did go away after receiving a dose of morphine. Denies any dizziness, syncope, fever, chills, dysuria, and abdominal pain presently. He does report a recent EGD by Dr. Hawley on July 29, of which he reports that his ulcer at that time was reported to be healed. However, he had a case of gastritis and for that reason, Dr. Hawley requested for him to initiate taking Carafate, which he has been faithful with at home. He continues his Protonix every day. REVIEW OF SYSTEMS: Negative except as mentioned above. PAST MEDICAL HISTORY: See above. PAST SURGICAL HISTORY: Percutaneous coronary intervention in 2016. SOCIAL HISTORY: He drinks occasionally. No illicit drug use. PHYSICAL EXAMINATION: VITAL SIGNS: Temperature 97.2, pulse 58, respiratory rate 16, blood pressure 131/72, and oxygen saturation 98% on room air. GENERAL: Alert and oriented x3. Resting comfortably in bed. at the bedside. Does not appear to be in any acute distress. LUNGS: Clear to auscultation throughout. No wheezing. No rhonchi or crackles. NECK: Supple. No JVD noted. CARDIOVASCULAR: Regular rate and rhythm. No murmurs. No gallops. ABDOMEN: Soft and nontender. EXTREMITIES: Lower extremity, no edema. 2+ pedal pulses. CARDIOVASCULAR MEDICATIONS: Diltiazem 120 mg p.o. daily, diltiazem 240 mg p.o. at bedtime, Zetia 10 mg p.o. daily, Lasix 20 mg p.o. q.12 hours, fenofibrate 40 mg p.o. at bedtime, and Protonix 40 mg p.o. b.i.d. LABORATORY DATA: Labs from yesterday; WBC 10.26, hemoglobin 12.9, hematocrit 41.0, and platelets 433. Sodium 132, potassium 3.4, BUN 10, and creatinine 0.76. Troponin less than 0.001. CK-MB 1.40. Chest x-ray with no acute thoracic abnormality. Abdominal CT with stable compression fracture of the T12, steatosis and a few fluid and air distended, but nondilated small bowel loops, which may be as a result of gastroenteritis. Normal appendix. TELEMETRY: Normal sinus rhythm. IMPRESSION: 1. Epigastric abdominal pain. 2. Atypical chest pain. 3. Chronic angina. 4. Coronary artery disease, status post PCI in 2015. 5. Hypertension. 6. History of chronic angina. RECOMMENDATIONS: This patient has been ruled out for acute myocardial infarction with serial cardiac markers. Continue the above-listed cardiac medication. Okay to continue with aspirin therapy. Continue care with Gastroenterology. Pain likely to be related to his GI issues. We will continue to monitor closely. The patient may follow up with Dr. Salcido in the clinic after discharge. No further cardiac workup indicated at this time. We will continue to monitor this patient closely. Dictated by Letty Roberts NP MD EDE OconnorV/DANIEL /[id number]
[2019-08-10] MEDS ORDERED: LATANOPROST(OPTH) 2.5 ML BTL OU SCH (21:00)
[2019-08-10] MEDS ORDERED: FENOFIBRATE 48 MG TAB PO SCH (21:00)
[2019-08-10] MEDS ORDERED: FENOFIBRATE 145 MG TAB PO SCH (21:00)
== END 2019-08-10 14:24 | disposition home or self-care (01) ==
LOC: ER 21:57 → ERHOLD 08-10 00:39 → MED/SURG 08-10 01:38
DX: R07.89 Other chest pain (principal); R10.13 Epigastric pain; I25.118 Atherosclerotic heart disease of native coronary artery with other forms of angina pectoris; I10 Essential (primary) hypertension; K21.9 Gastro-esophageal reflux disease without esophagitis; E78.5 Hyperlipidemia, unspecified; I25.10 Atherosclerotic heart disease of native coronary artery without angina pectoris; Z95.5 Presence of coronary angioplasty implant and graft; Z82.49 Family history of ischemic heart disease and other diseases of the circulatory system
CPT/HCPCS: 36415 ×2; 71046; 74177; 80053; 81001; 82550 ×2; 82553 ×2; 84484 ×2; 85025; 85610; 85730; 93005; 96374; 99284; G0378; J2270 ×3; J2405 ×2; Q9967; S0164

== ENCOUNTER → 2020-08-03 | Outpatient (CLI) | payer MEDICARE, OTHER ==
[~2020-08-03] MED LIST changes: +LORAZEPAM INJ 2 MG/ML VIAL ONE
== END ==
LOC: MRI 08:59
PROVIDERS: ATTEND Internal Medicine Rheumatology
DX: M54.2 Cervicalgia (principal)
CPT/HCPCS: 72141; J2060

== ENCOUNTER 2020-11-27 11:28 | Observation (INO) | payer MEDICARE, OTHER ==
[2020-11-24 14:09] LABS: BASOPHILS % 0.6 % (0.0-1.0); EOSINOPHILS # (AUTO) 0.2 (0.0-0.4); EOSINOPHILS % 3.7 % (0.0-6.0); HEMATOCRIT 38.9 % (38.2-49.6); HEMOGLOBIN 12.8 g/dL (14.0-18.0); LYMPHOCYTES # (AUTO) 1.3 (1.0-3.2); LYMPHOCYTES % 20.8 % (18.0-39.1); MEAN CORPUSCULAR HEMOGLOBIN 30.6 pg (28-32); MEAN CORPUSCULAR HGB CONC 32.9 g/dL (31-35); MEAN CORPUSCULAR VOLUME 93.1 fL (81-99); MONOCYTES # (AUTO) 0.9 (0.2-0.8); MONOCYTES % 14.2 % (4.4-11.3); NEUTROPHILS # (AUTO) 3.8 (2.1-6.9); NEUTROPHILS % 60.2 % (38.7-80.0); PLATELET COUNT 292 x10e3/uL (140-360); RED BLOOD COUNT 4.18 x10e6/uL (4.3-5.7); RED CELL DISTRIBUTION WIDTH 14.3 % (11.7-14.4)
[2020-11-24 14:22] LABS: INR 0.96; PROTHROMBIN TIME 13.4 seconds (11.9-14.5)
[2020-11-24 14:23] LABS: PARTIAL THROMBOPLASTIN TIME 26.6 seconds (23.8-35.5)
[2020-11-24 14:27] LABS: ANION GAP 13.7 mmol/L (8-16); BLOOD UREA NITROGEN 13 mg/dL (7-26); BUN/CREATININE RATIO 17 (6-25); CALCIUM 9.5 mg/dL (8.4-10.2); CARBON DIOXIDE 26 mmol/L (22-29); CHLORIDE 103 mmol/L (98-107); CREATININE, SERUM 0.76 mg/dL (0.72-1.25); EST GLOMERULAR FILTRATION RATE > 60 ML/MIN (60-); GLUCOSE 101 mg/dL (74-118); POTASSIUM 3.7 mmol/L (3.5-5.1); SODIUM 139 mmol/L (136-145)
[2020-11-25 13:31] LABS: PROSTATE SPECIFIC AG TOTAL 1.3 ng/mL (0.0-4.0); PSA FREE 0.37 ng/mL
[~2020-11-27] VITALS: Ht 175.3 cm; Wt 68.0 kg
[~2020-11-27 11:28] MED LIST changes: +LIDOCAINE 1% W/EPINEPHRINE 20 ML VIAL ONE; -LORAZEPAM INJ 2 MG/ML VIAL ONE; +PREDNISOLONE ACE5 M1 OD; +THROMBIN FOR SOLN 5,000 UNIT VIAL ONE; +VANCOMYCIN HCL 1 GM VIAL ONE
[2020-11-27] MEDS ORDERED: FENTANYL CITRATE/PF 100MCG/2 ML INJ ONE ×2 (12:05→14:47)
[2020-11-27] MEDS ORDERED: MIDAZOLAM HCL 2 MG/2 ML VIAL ONE (12:05)
[2020-11-27] MEDS ORDERED: SULFASALAZINE500 MG PO (12:27)
[2020-11-27] MEDS ORDERED: CEFAZOLIN SOD 1 GM/NS 50ML 100 ML IV ONE (12:30)
[2020-11-27] MEDS ORDERED: ROCURONIUM BROMIDE 10 MG/ML 5ML VIAL IV ONE (13:24)
[2020-11-27] MEDS ORDERED: LIDOCAINE HCL 2% JELLY 5 ML TUBE ONE (13:24)
[2020-11-27] MEDS ORDERED: NEOSTIGMINE 1 MG/ML 10ML VIAL ONE (13:24)
[2020-11-27] MEDS ORDERED: SEVOFLURANE INHAL SOLN 250 ML PEN BTL ONE (13:24)
[2020-11-27] MEDS ORDERED: DEXAMETHASONE SOD PHOS INJ 4 MG/ML VIAL ONE (13:24)
[2020-11-27] MEDS ORDERED: LIDOCAINE HCL 2% LOCAL INJ 5 ML SDV VIAL INJ ONE (13:24)
[2020-11-27] MEDS ORDERED: PROPOFOL IV EMULSION 10 MG/ML 20 ML VIAL ONE (13:24)
[2020-11-27] MEDS ORDERED: GLYCOPYRROLATE INJ 0.2 MG/ML VIAL ONE (13:24)
[2020-11-27] MEDS ORDERED: ONDANSETRON HCL INJ 2MG/ML 2ML 2 MG/ML VIAL ONE (13:24)
[2020-11-27] MEDS ORDERED: LIDOCAINE HCL (LTA) 4 ML SOLN ONE (13:42)
[2020-11-27] MEDS ORDERED: IBUPROFEN 800MG/ 200ML 200 ML IV ONE (13:42)
[2020-11-27] MEDS ORDERED: ACETAMINOPHEN 1000 MG/100 ML 100 ML IV ONE (13:42)
[2020-11-27] MEDS ORDERED: SUGAMMADEX SODIUM 200 MG/2 ML VIAL IV ONE (13:43)
[2020-11-27] MEDS ORDERED: MORPHINE SULFATE 5 MG/ML VIAL IM PRN (14:30)
[2020-11-27] MEDS ORDERED: MAGNESIUM/ALUMINUM/SIMETHICONE 30 ML UDC PO PRN (14:30)
[2020-11-27] MEDS ORDERED: PROMETHAZINE HCL (IM) 25 MG/ML VIAL IM PRN (14:30)
[2020-11-27] MEDS ORDERED: OXYCODONE/ACETAMINOPHEN 5-325 1 EACH TABLET PO PRN (14:30)
[2020-11-27] MEDS ORDERED: ONDANSETRON HCL INJ 2MG/ML 2ML 2 MG/ML VIAL IV PRN (14:30)
[2020-11-27] MEDS ORDERED: ACETAMINOPHEN 325 MG TAB PO PRN (14:30)
[2020-11-27] MEDS ORDERED: HYDROCODON-ACE1 EA12 PO (14:32)
[2020-11-27] MEDS ORDERED: MORPHINE SULFATE INJ 2 MG/ML SYR ONE (15:24)
[2020-11-27 15:53] VITALS: BP 131/74
[2020-11-27 15:54] VITALS: BP 131/74
[2020-11-27 15:57] VITALS: BP 131/74
[2020-11-27] MEDS: LACTATED RINGER'S 1,000 ML IV SCH (16:22)
[2020-11-27] MEDS: CARISOPRODOL 350 MG TAB PO PRN ×2 (16:23→21:12)
[2020-11-27] MEDS: PANTOPRAZOLE SOD 40 MG TABEC PO SCH (16:23)
[2020-11-27] MEDS: DILTIAZEM HCL ER 120 MG CAP PO SCH (16:23)
[2020-11-27] MEDS: FUROSEMIDE 20 MG TAB PO SCH ×2 (16:23→20:55)
[2020-11-27 16:27] VITALS: BP 131/74
[2020-11-27] MEDS: HYDROMORPHONE 2MG/ML 2 MG/ML ML IV PRN ×2 (18:41→23:10)
[2020-11-27 20:00] VITALS: BP 128/78
[2020-11-27] MEDS ORDERED: LATANOPROST(OPTH) 2.5 ML BTL OU SCH (21:00)
[2020-11-27] MEDS ORDERED: FENOFIBRATE 145 MG TAB PO SCH (21:00)
[2020-11-27] MEDS ORDERED: ZOLPIDEM TARTRATE 5 MG TAB PO PRN (21:00)
[2020-11-27] MEDS: CEFAZOLIN SOD 1 GM/NS 50ML 50 ML IV SCH (21:11)
[2020-11-28] VITALS: BP 141/61
[2020-11-28] MEDS: LACTATED RINGER'S 1,000 ML IV SCH ×2 (02:04→07:10)
[2020-11-28] MEDS: HYDROMORPHONE 2MG/ML 2 MG/ML ML IV PRN ×2 (03:13→08:13)
[2020-11-28 04:00] VITALS: BP 123/75
[2020-11-28] MEDS: CEFAZOLIN SOD 1 GM/NS 50ML 50 ML IV SCH (05:41)
[2020-11-28] MEDS: FUROSEMIDE 20 MG TAB PO SCH (08:07)
[2020-11-28] MEDS: DILTIAZEM HCL ER 120 MG CAP PO SCH (08:07)
[2020-11-28] MEDS: PANTOPRAZOLE SOD 40 MG TABEC PO SCH (08:07)
[2020-11-28 08:09] VITALS: BP 128/72
[2020-11-28 08:10] VITALS: BP 128/72
[2020-11-28] MEDS ORDERED: SULFASALAZINE 500 MG TAB PO SCH (09:00)
[2020-11-28] MEDS ORDERED: CHOLECALCIFEROL 1,000 UNIT TAB PO SCH (09:00)
[2020-11-28] MEDS ORDERED: PRASUGREL 10 MG TAB PO SCH (09:00)
[2020-11-28] MEDS ORDERED: EZETIMIBE 10 MG TAB PO SCH (09:00)
[2020-11-28] MEDS ORDERED: PRAVASTATIN 20 MG TAB PO SCH (09:00)
== END 2020-11-28 09:35 | disposition home or self-care (01) ==
LOC: OR 11:28 → PACU V 14:28 → MED/SURG 15:28
PROVIDERS: ADMIT Neurological Surgery; ATTEND Neurological Surgery
DX: M50.121 Cervical disc disorder at C4-C5 level with radiculopathy (principal); Z20.822 Contact with and (suspected) exposure to COVID-19; M06.9 Rheumatoid arthritis, unspecified; I10 Essential (primary) hypertension; E78.5 Hyperlipidemia, unspecified; I25.10 Atherosclerotic heart disease of native coronary artery without angina pectoris; Z95.5 Presence of coronary angioplasty implant and graft; Z01.818 Encounter for other preprocedural examination; G47.33 Obstructive sleep apnea (adult) (pediatric); I73.9 Peripheral vascular disease, unspecified
CPT/HCPCS: 20930; 20931; 22554; 22853; 71046; 36415; 72040; 77003; 80048; 84153; 85025; 85610; 85730; 86850; 86900; 88304; 93005; C1713 ×2; G0378 ×2; J0131; J0690 ×2; J1100; J1170 ×2; J2001 ×2; J2250; J2270; J2405; J2704; J2710; J3010; J3370; J7121 ×2; S0164 ×2; U0002

== ENCOUNTER 2024-04-27 20:52 | Observation (INO) | payer MEDICARE, OTHER ==
[~2024-04-27] VITALS: Ht 175.3 cm; Wt 70.3 kg
[~2024-04-27 20:52] MED LIST changes: +ALENDRONATE SOD70 MG PO; +AMBIEN10 MG PO; +DORZOLAMIDE-TIM10 ML OP; +HYDROCODON-ACE1 EA12 PO; -LIDOCAINE 1% W/EPINEPHRINE 20 ML VIAL ONE; +OFLOXACIN5 ML OT; -PREDNISOLONE ACE5 M1 OD; +PREDNISOLONE ACE5 M1 OS; +REPATHA SU140 MG/1 M; +SULFASALAZINE500 MG PO; -THROMBIN FOR SOLN 5,000 UNIT VIAL ONE; -VANCOMYCIN HCL 1 GM VIAL ONE; +XALATAN2.5 ML OS; -XALATAN2.5 ML OU
[2024-04-27 21:12] LABS: BASOPHILS % 0.4 % (0.0-1.0); EOSINOPHILS # (AUTO) 0.3 (0.0-0.4); HEMATOCRIT 43.1 % (38.2-49.6); HEMOGLOBIN 14.4 g/dL (14.0-18.0); LYMPHOCYTES # (AUTO) 2.6 (1.0-3.2); LYMPHOCYTES % 25.7 % (18.0-39.1); MEAN CORPUSCULAR HEMOGLOBIN 32.2 pg (28-32); MEAN CORPUSCULAR HGB CONC 33.4 g/dL (31-35); MEAN CORPUSCULAR VOLUME 96.4 fL (81-99); MONOCYTES # (AUTO) 1.3 (0.2-0.8); MONOCYTES % 12.9 % (4.4-11.3); NEUTROPHILS # (AUTO) 5.8 (2.1-6.9); NEUTROPHILS % 57.6 % (38.7-80.0); PLATELET COUNT 289 x10e3/uL (140-360); RED BLOOD COUNT 4.47 x10e6/uL (4.3-5.7); RED CELL DISTRIBUTION WIDTH 13.4 % (11.7-14.4); WHITE BLOOD COUNT 10.07 x10e3/uL (4.8-10.8)
[2024-04-27 21:28] LABS: ETHANOL 85.3 mg/dL (0.0-10.0)
[2024-04-27 21:29] LABS: ALBUMIN 4.2 g/dL (3.5-5.0); ALBUMIN/GLOBULIN RATIO 1.2 (0.8-2.0); ANION GAP 15.2 mmol/L (8-16); BILIRUBIN,TOTAL 0.5 mg/dL (0.2-1.2); CALCIUM 9.9 mg/dL (8.4-10.2); CREATININE, SERUM 0.82 mg/dL (0.72-1.25); POTASSIUM 4.2 mmol/L (3.5-5.1); TOTAL PROTEIN 7.6 g/dL (6.5-8.1)
[2024-04-27 21:35] LABS: TROPONIN I 0.003 ng/mL (0-0.300)
[2024-04-27] MEDS: FAMOTIDINE 20 MG/2 ML VIAL IV STA (22:18)
[2024-04-27] MEDS: ASPIRIN 325 MG TAB PO STA (22:19)
[2024-04-27 22:50] LABS: COVID 19 ANTIGEN NOT DETECTED (NEGATIVE)
[2024-04-27 22:55] LABS: CREATINE KINASE 79 IU/L (30-200)
[2024-04-27 23:00] LABS: TROPONIN I 0.001 ng/mL (0-0.300)
[2024-04-27 23:01] VITALS: PULSE 65; RESP 15; TEMP 98.3
[2024-04-27 23:10] VITALS: PULSE 61; RESP 16; O2SAT 98
[2024-04-27] MEDS: Morphine 4mg INJECTION 4 MG/ML INJ IV STA (23:16)
[2024-04-27 23:45] VITALS: BP 130/66; PULSE 56; RESP 18; TEMP 97.4; O2SAT 98
[2024-04-28] VITALS (13 sets, daily range): BP systolic 126–153; BP diastolic 65–83; PULSE 56–64; RESP 16–18; TEMP 97.4–98.2; O2SAT 96–100
[2024-04-28] MEDS: Morphine 4mg INJECTION 4 MG/ML INJ IV PRN (03:18)
[2024-04-28 06:53] LABS: BASOPHILS # (AUTO) 0.1 (0.0-0.1); BASOPHILS % 0.7 % (0.0-1.0); EOSINOPHILS # (AUTO) 0.3 (0.0-0.4); EOSINOPHILS % 4.4 % (0.0-6.0); HEMATOCRIT 37.9 % (38.2-49.6); HEMOGLOBIN 12.8 g/dL (14.0-18.0); LYMPHOCYTES # (AUTO) 1.9 (1.0-3.2); LYMPHOCYTES % 25.3 % (18.0-39.1); MEAN CORPUSCULAR HEMOGLOBIN 32.2 pg (28-32); MEAN CORPUSCULAR HGB CONC 33.8 g/dL (31-35); MEAN CORPUSCULAR VOLUME 95.2 fL (81-99); NEUTROPHILS # (AUTO) 4.2 (2.1-6.9); NEUTROPHILS % 56.2 % (38.7-80.0); PLATELET COUNT 254 x10e3/uL (140-360); RED BLOOD COUNT 3.98 x10e6/uL (4.3-5.7); RED CELL DISTRIBUTION WIDTH 13.2 % (11.7-14.4); WHITE BLOOD COUNT 7.44 x10e3/uL (4.8-10.8)
[2024-04-28 06:57] LABS: ALBUMIN 3.7 g/dL (3.5-5.0); ALBUMIN/GLOBULIN RATIO 1.4 (0.8-2.0); ANION GAP 14.6 mmol/L (8-16); CALCIUM 9.1 mg/dL (8.4-10.2); CREATININE, SERUM 0.74 mg/dL (0.72-1.25); POTASSIUM 3.6 mmol/L (3.5-5.1); TOTAL PROTEIN 6.4 g/dL (6.5-8.1)
[2024-04-28 07:25] LABS: TROPONIN I 0.003 ng/mL (0-0.300)
[2024-04-28] MEDS ORDERED: ASPIRIN81 MG PO (10:36)
[2024-04-28] MEDS ORDERED: PREDNISOLONE ACE5 M1 OD (10:36)
[2024-04-28] MEDS ORDERED: DILTIAZEM 24HR240 M3 PO (10:45)
[2024-04-28] MEDS: ONDANSETRON HCL INJ 2MG/ML 2ML 2 MG/ML VIAL IV PRN (11:22)
[2024-04-28] MEDS: IBUPROFEN 400 MG TAB PO ONE (13:30)
[2024-04-28 14:13] LABS: TROPONIN I 0.006 ng/mL (0-0.300)
[2024-04-28] MEDS: DILTIAZEM HCL ER 120 MG CAP PO SCH (20:04)
[2024-04-29] VITALS: BP 131/78; PULSE 60; RESP 17; TEMP 98.3; O2SAT 98
[2024-04-29 04:00] VITALS: BP 135/75; PULSE 57; RESP 18; TEMP 97.9; O2SAT 97
[2024-04-29 07:59] VITALS: BP 145/74; PULSE 51; RESP 20; TEMP 98.4; O2SAT 96
[2024-04-29 08:06] VITALS: BP 145/74; PULSE 51; RESP 20; TEMP 98.4; O2SAT 96
[2024-04-29] MEDS: PANTOPRAZOLE SOD 40 MG TABEC PO SCH (08:13)
[2024-04-29] MEDS: HYDROCODONE/APAP 7.5MG-325MG 1 EA TAB PO PRN (08:13)
[2024-04-29] MEDS: SULFASALAZINE 500 MG TAB PO SCH (08:13)
[2024-04-29] MEDS: ASPIRIN 81 MG CHEW TAB PO SCH (08:13)
[2024-04-29] MEDS: FUROSEMIDE 40 MG TAB PO SCH (08:14)
[2024-04-29] MEDS: MULTIVITAMINS/MINERALS TAB PO SCH (08:14)
[2024-04-29] MEDS: ASCORBIC ACID 500 MG TAB PO SCH (08:14)
[2024-04-29] MEDS: OYST-CAL-D 500MG TABLET PO SCH (08:15)
[2024-04-29] MEDS: CHOLECALCIFEROL 1,000 UNIT TAB PO SCH (08:15)
[2024-04-29] MEDS: DILTIAZEM HCL ER 120 MG CAP PO SCH (08:16)
[2024-04-29] MEDS: PREDNISOLONE ACETATE 1% OPTH SUSP 5 ML BTL OP SCH ×2 (08:16)
[2024-04-29] MEDS: DORZOLAMIDE/TIMOLOL (OPTH SOL) 10 ML DRPETTE OP SCH (08:16)
[2024-04-29] MEDS: LATANOPROST(OPTH) 2.5 ML BTL OS SCH (09:00)
[2024-04-29 12:07] VITALS: BP 143/77; PULSE 54; RESP 19; TEMP 97.8; O2SAT 100
[2024-04-29 16:12] VITALS: BP 143/74; PULSE 59; RESP 17; TEMP 98.6; O2SAT 99
[2024-05-02] MEDS ORDERED: ALENDRONATE SODIUM 70 MG TAB PO SCH (07:30)
== END 2024-04-29 18:13 | disposition home or self-care (01) ==
LOC: ER 21:00 → ERHOLD 22:16 → MED/SURG3 23:26
PROVIDERS: ADMIT Internal Medicine; ATTEND Internal Medicine
DX: R07.89 Other chest pain (principal); I10 Essential (primary) hypertension; E78.5 Hyperlipidemia, unspecified; I25.10 Atherosclerotic heart disease of native coronary artery without angina pectoris; Z95.5 Presence of coronary angioplasty implant and graft; I45.10 Unspecified right bundle-branch block; I44.4 Left anterior fascicular block; B19.20 Unspecified viral hepatitis C without hepatic coma; M06.9 Rheumatoid arthritis, unspecified; K27.6 Chronic or unspecified peptic ulcer, site unspecified, with both hemorrhage and perforation; H40.9 Unspecified glaucoma; Z11.52 Encounter for screening for COVID-19; Z79.899 Other long term (current) drug therapy; Z79.82 Long term (current) use of aspirin
CPT/HCPCS: 0223U; 36415 ×2; 71045; 80053 ×2; 80320; 82550 ×2; 83690; 83880; 84484 ×2; 85025 ×2; 85379; 86140; 93005; 93306; 94799 ×2; 99284; G0378 ×3; J2270 ×3; J2405 ×2; S0164

== ENCOUNTER 2024-12-04 17:27 | Observation (INO) | payer MEDICARE, OTHER ==
[2024-12-04] VITALS (7 sets, daily range): BP systolic 127–139; BP diastolic 78–84; PULSE 62–68; RESP 18; TEMP 98.1–98.5; O2SAT 97–99
[~2024-12-04] VITALS: Ht 175.3 cm; Wt 70.3 kg
[~2024-12-04 17:27] MED LIST changes: +ASPIRIN81 MG PO; +DILTIAZEM 24HR240 M3 PO; +PREDNISOLONE ACE5 M1 OD
[2024-12-04 18:35] LABS: BASOPHILS # (AUTO) 0.1 (0.0-0.1); BASOPHILS % 0.6 % (0.0-1.0); EOSINOPHILS # (AUTO) 0.2 (0.0-0.4); EOSINOPHILS % 2.4 % (0.0-6.0); HEMATOCRIT 42.9 % (38.2-49.6); HEMOGLOBIN 14.6 g/dL (14.0-18.0); LYMPHOCYTES # (AUTO) 1.7 (1.0-3.2); MEAN CORPUSCULAR HEMOGLOBIN 32.1 pg (28-32); MEAN CORPUSCULAR VOLUME 94.3 fL (81-99); MONOCYTES # (AUTO) 1.1 (0.2-0.8); MONOCYTES % 13.2 % (4.4-11.3); NEUTROPHILS # (AUTO) 4.9 (2.1-6.9); NEUTROPHILS % 62.2 % (38.7-80.0); PLATELET COUNT 367 x10e3/uL (140-360); RED BLOOD COUNT 4.55 x10e6/uL (4.3-5.7); RED CELL DISTRIBUTION WIDTH 12.8 % (11.7-14.4); WHITE BLOOD COUNT 7.94 x10e3/uL (4.8-10.8)
[2024-12-04 18:50] LABS: INR 0.89; PROTHROMBIN TIME 12.6 seconds (11.9-14.5)
[2024-12-04 18:51] LABS: PARTIAL THROMBOPLASTIN TIME 22.8 seconds (23.8-35.5)
[2024-12-04 19:03] LABS: ALBUMIN 3.8 g/dL (3.5-5.0); ALBUMIN/GLOBULIN RATIO 1.1 (0.8-2.0); ANION GAP 14.8 mmol/L (8-16); BILIRUBIN,TOTAL 0.6 mg/dL (0.2-1.2); CALCIUM 9.5 mg/dL (8.4-10.2); CREATININE, SERUM 0.74 mg/dL (0.72-1.25); POTASSIUM 3.8 mmol/L (3.5-5.1); TOTAL PROTEIN 7.3 g/dL (6.5-8.1)
[2024-12-04 19:09] LABS: TROPONIN I 0.004 ng/mL (0-0.300)
[2024-12-04] MEDS ORDERED: ONDANSETRON HCL INJ 2MG/ML 2ML 2 MG/ML VIAL IV PRN (19:45)
[2024-12-04] MEDS: Morphine 4mg INJECTION 4 MG/ML INJ IV STA (20:06)
[2024-12-04] MEDS: SODIUM CHLORIDE 0.9% 1000ML 1,000 ML IV SCH (20:06)
[2024-12-04] MEDS: ONDANSETRON HCL INJ 2MG/ML 2ML 2 MG/ML VIAL IV STA (20:06)
[2024-12-04 20:28] LABS: INFLUENZA A AG NEGATIVE (NEGATIVE)
[2024-12-04 20:29] LABS: CORONAVIRUS COVID-19 AG NEGATIVE (NEGATIVE); INFLUENZA B AG NEGATIVE (NEGATIVE)
[2024-12-04] MEDS ORDERED: HYDRALAZINE HCL 20 MG/ML VIAL IV PRN (23:00)
[2024-12-04] MEDS: FAMOTIDINE 20 MG TAB PO PRN (23:30)
[2024-12-04] MEDS: ONDANSETRON HCL 4 MG ORAL DISINTEGRATING TAB PO PRN (23:30)
[2024-12-04] MEDS: MELATONIN 5 MG TABLET PO PRN (23:30)
[2024-12-04] MEDS: Morphine 4mg INJECTION 4 MG/ML INJ IV PRN (23:31)
[2024-12-04] MEDS: ONDANSETRON HCL INJ 2MG/ML 2ML 2 MG/ML VIAL IV PRN (23:48)
[2024-12-05] MEDS: ACETAMINOPHEN 325 MG TAB PO PRN (02:22)
[2024-12-05 03:00] LABS: CREATINE KINASE 45 IU/L (30-200)
[2024-12-05 03:16] VITALS: BP 141/76; PULSE 63; RESP 18; TEMP 98.2; O2SAT 98
[2024-12-05 03:27] LABS: TROPONIN I < 0.001 ng/mL (0-0.300)
[2024-12-05 06:16] VITALS: PULSE 74; RESP 20; O2SAT 97
[2024-12-05 08:39] LABS: BASOPHILS % 0.5 % (0.0-1.0); EOSINOPHILS # (AUTO) 0.2 (0.0-0.4); EOSINOPHILS % 2.5 % (0.0-6.0); HEMATOCRIT 38.3 % (38.2-49.6); HEMOGLOBIN 13.2 g/dL (14.0-18.0); LYMPHOCYTES # (AUTO) 2.1 (1.0-3.2); LYMPHOCYTES % 28.5 % (18.0-39.1); MEAN CORPUSCULAR HEMOGLOBIN 32.2 pg (28-32); MEAN CORPUSCULAR HGB CONC 34.5 g/dL (31-35); MEAN CORPUSCULAR VOLUME 93.4 fL (81-99); MONOCYTES % 13.6 % (4.4-11.3); NEUTROPHILS # (AUTO) 4.1 (2.1-6.9); NEUTROPHILS % 54.8 % (38.7-80.0); PLATELET COUNT 289 x10e3/uL (140-360); RED CELL DISTRIBUTION WIDTH 12.9 % (11.7-14.4); WHITE BLOOD COUNT 7.48 x10e3/uL (4.8-10.8)
[2024-12-05 09:00] LABS: ALBUMIN 3.3 g/dL (3.5-5.0); ALBUMIN/GLOBULIN RATIO 1.2 (0.8-2.0); ANION GAP 12.5 mmol/L (8-16); BILIRUBIN,TOTAL 0.7 mg/dL (0.2-1.2); CALCIUM 8.8 mg/dL (8.4-10.2); CREATININE, SERUM 0.68 mg/dL (0.72-1.25); POTASSIUM 3.5 mmol/L (3.5-5.1)
[2024-12-05 09:01] LABS: CHOL/HDL RATIO 2.8 (3.9-4.7)
[2024-12-05] MEDS ORDERED: PANTOPRAZOLE SODIUM 20 MG TABLET.DR PO SCH (09:30)
[2024-12-05] MEDS: SUCRALFATE 1 GM TAB PO SCH (11:10)
[2024-12-05] MEDS ORDERED: PANTOPRAZOLE SO40 MG PO (15:53)
[2024-12-05 16:00] VITALS: BP 128/72; PULSE 62; RESP 18; TEMP 98; O2SAT 100
[2024-12-05 16:07] LABS: TROPONIN I 0.005 ng/mL (0-0.300)
[2024-12-05] MEDS ORDERED: PANTOPRAZOLE SOD 40 MG TABEC PO SCH (17:00)
[2024-12-12] MEDS ORDERED: CARAFATE1 GM PO (12:25)
== END 2024-12-05 16:20 | disposition home or self-care (01) ==
LOC: ER 18:06 → ERHOLD 19:44 → MED/SURG3 21:43
PROVIDERS: ADMIT Family Medicine Adult Medicine; ATTEND Family Medicine Adult Medicine
DX: R07.89 Other chest pain (principal); K21.9 Gastro-esophageal reflux disease without esophagitis; K44.9 Diaphragmatic hernia without obstruction or gangrene; I25.10 Atherosclerotic heart disease of native coronary artery without angina pectoris; Z95.5 Presence of coronary angioplasty implant and graft; Z87.891 Personal history of nicotine dependence; E78.5 Hyperlipidemia, unspecified; I10 Essential (primary) hypertension; M06.9 Rheumatoid arthritis, unspecified; Z86.19 Personal history of other infectious and parasitic diseases
CPT/HCPCS: 36415 ×2; 70450; 71045; 76700; 80053 ×2; 80061; 82550 ×2; 83036; 83735; 83880; 84443; 84484 ×2; 85025 ×2; 85610; 85730; 87428; 93005 ×2; 93306; 94799 ×2; 99284; G0378 ×2; J2270 ×2; J2405 ×2; J7030 ×2; Q0162

== ENCOUNTER → 2024-12-20 | Day surgery (SDC) | payer MEDICARE, OTHER ==
[~2024-12-20] MED LIST changes: +CARAFATE1 GM PO; +FENTANYL CITRATE/PF 100MCG/2 ML INJ ONE; +HYOSCYAMINE SULFATE 0.5 MG/ML INJ ONE; +LIDOCAINE HCL 2% LOCAL INJ 5 ML SDV VIAL INJ ONE; +METOCLOPRAMIDE HCL 10 MG/2ML VIAL ONE; +MIDAZOLAM HCL 2 MG/2 ML VIAL ONE; +PROPOFOL IV EMULSION 10 MG/ML 20 ML VIAL ONE
[2024-12-20] MEDS: LACTATED RINGER'S 1,000 ML ONE (10:36)
[2024-12-20 13:09] VITALS: TEMP 97
[2024-12-20 13:50] VITALS: BP 135/80; PULSE 65; RESP 16; O2SAT 97
== END | disposition home or self-care (01) ==
LOC: OR 09:31
PROVIDERS: ATTEND Internal Medicine Gastroenterology
DX: K29.50 Unspecified chronic gastritis without bleeding (principal); K63.5 Polyp of colon; K26.9 Duodenal ulcer, unspecified as acute or chronic, without hemorrhage or perforation; K22.70 Barrett's esophagus without dysplasia; K21.00 Gastro-esophageal reflux disease with esophagitis, without bleeding; K22.89 Other specified disease of esophagus; K44.9 Diaphragmatic hernia without obstruction or gangrene; K64.8 Other hemorrhoids; Z71.3 Dietary counseling and surveillance; D64.9 Anemia, unspecified; I10 Essential (primary) hypertension; Z71.89 Other specified counseling; M06.9 Rheumatoid arthritis, unspecified; M62.08 Separation of muscle (nontraumatic), other site; E78.5 Hyperlipidemia, unspecified; R07.9 Chest pain, unspecified; I25.10 Atherosclerotic heart disease of native coronary artery without angina pectoris; M26.609 Unspecified temporomandibular joint disorder, unspecified side; F17.210 Nicotine dependence, cigarettes, uncomplicated; Z71.6 Tobacco abuse counseling; Z91.040 Latex allergy status; Z79.899 Other long term (current) drug therapy; Z68.24 Body mass index [BMI] 24.0-24.9, adult; Z86.19 Personal history of other infectious and parasitic diseases; Z95.5 Presence of coronary angioplasty implant and graft; Z80.0 Family history of malignant neoplasm of digestive organs
CPT/HCPCS: 43239; 45380; 45385; 88305; 88342; J2470; J2765; J7121; 45378; J1980; J2003; J2250

== ENCOUNTER → 2025-01-03 | Outpatient (REF) | payer MEDICARE, OTHER ==
[~2025-01-03] MED LIST changes: -FENTANYL CITRATE/PF 100MCG/2 ML INJ ONE; -HYOSCYAMINE SULFATE 0.5 MG/ML INJ ONE; -LIDOCAINE HCL 2% LOCAL INJ 5 ML SDV VIAL INJ ONE; -METOCLOPRAMIDE HCL 10 MG/2ML VIAL ONE; -MIDAZOLAM HCL 2 MG/2 ML VIAL ONE; -PROPOFOL IV EMULSION 10 MG/ML 20 ML VIAL ONE
== END ==
LOC: DX 09:44
PROVIDERS: ATTEND Surgery
DX: K44.9 Diaphragmatic hernia without obstruction or gangrene (principal)
CPT/HCPCS: 74246